=== PATIENT | male | born 1945 | race Caucasian/White ===

== ENCOUNTER 2017-01-16 08:29 | Inpatient (IN) | payer OTHER ==
[~2017-01-16] VITALS: Ht 170.2 cm; Wt 108.7 kg
[2017-01-16] VITALS (43 sets, daily range): BP systolic 88–256; BP diastolic 49–222; PULSE 67–93; RESP 16–27; Ht 170.2 cm; Wt 108.7 kg
[~2017-01-16 08:29] MED LIST: ASPI81TA3 PO; ATOR20TA38 PO; CLOP75TA4 PO; DILT300C33 PO; FENO48TA4 PO; LANT3I SC; METO-448 PO; OMEG-135 PO; SITA50TA2 PO
[2017-01-16] MEDS ORDERED: LISI2.5T59 PO (08:37)
[2017-01-16] MEDS ORDERED: SPIR25TA PO (08:38)
[2017-01-16] MEDS ORDERED: SOD CHLORIDE 0.9% 1,000 ML IV STA (08:38)
[2017-01-16] MEDS ORDERED: KRIL500C PO (08:39)
[2017-01-16] MEDS ORDERED: CARV3.1260 PO (08:39)
[2017-01-16] MEDS ORDERED: GLIP-95 PO (08:39)
[2017-01-16] MEDS ORDERED: ALLO100T PO (08:40)
[2017-01-16] MEDS ORDERED: METF500T4 PO (08:41)
[2017-01-16] MEDS ORDERED: ATOR80TA75 PO (08:41)
[2017-01-16] MEDS ORDERED: CALC500T91 PO (08:42)
[2017-01-16] MEDS ORDERED: FURO20TA3 PO (08:42)
[2017-01-16] MEDS ORDERED: TERA2CAP3 PO (08:43)
[2017-01-16 08:49] LABS: ADD SCAN DIFF NO
[2017-01-16] MEDS ORDERED: LABETALOL HCL 20MG INJ ONE (08:53)
[2017-01-16 09:07] LABS: ALBUMIN 3.7 g/dl (3.3-4.9); POTASSIUM 4.3 mmol/L (3.5-5.1)
[2017-01-16 09:09] LABS: BILIRUBIN,INDIRECT 0.3 mg/dl (0-1.1); BILIRUBIN,TOTAL 0.3 mg/dl (0.2-1.3); CREATININE 1.67 mg/dl (0.61-1.24)
[2017-01-16 09:10] LABS: ALBUMIN/GLOBULIN RATIO 1.19; CALCIUM 9.1 mg/dl (8.4-10.2); TOTAL PROTEIN 6.8 g/dl (6.1-8.1)
[2017-01-16 09:11] LABS: BASOPHIL # 0.1 10^3/ul (0.0-0.1); BASOPHILS % 0.6 % (0.0-2.0); EOSINOPHILS # 0.2 10^3/ul (0.0-0.5); EOSINOPHILS % 2.7 % (0.0-7.0); HEMATOCRIT 40.5 % (42.0-52.0); HEMOGLOBIN 13.2 g/dl (14.0-18.0); LYMPHOCYTES # 1.4 10^3/ul (0.8-2.9); LYMPHOCYTES % 15.5 % (15.0-51.0); MEAN CORPUSCULAR HEMOGLOBIN 28.9 pg (29.0-33.0); MEAN CORPUSCULAR HGB CONC 32.6 g/dl (32.0-37.0); MEAN CORPUSCULAR VOLUME 88.6 fl (82.0-101.0); MEAN PLATELET VOLUME 12.5 fl (7.4-10.4); MONOCYTE # 0.7 10^3/ul (0.3-0.9); MONOCYTES % 8.5 % (0.0-11.0); NEUTROPHIL # 6.3 10^3/ul (1.6-7.5); NEUTROPHILS % 72.4 % (39.0-77.0); PLATELET COUNT 201 10^3/UL (140-415); RED BLOOD COUNT 4.57 10^6/ul (4.70-6.10); RED CELL DISTRIBUTION WIDTH 16.8 % (11.5-14.5); WHITE BLOOD COUNT 8.7 10^3/ul (4.8-10.8)
[2017-01-16 09:19] LABS: INR 1.16; PROTIME 14.9 Sec (12.2-14.2); PT RATIO 1.2
[2017-01-16] MEDS ORDERED: PROPOFOL 100 ML ONE ×2 (09:19→13:33)
[2017-01-16 09:20] LABS: PARTIAL THROMBOPLASTIN TIME 27.9 Sec (25.0-35.0)
[2017-01-16 09:23] LABS: TROPONIN-I 0.094 ng/ml (0.00-0.12)
[2017-01-16 09:25] LABS: CK-MB 1.03 ng/ml (0.0-2.4)
[2017-01-16] MEDS ORDERED: AMIODARONE 150MG/D5W BOLUS IV* STA (09:30)
[2017-01-16 09:43] LABS: Allen Test ACCEPTAB; Arterial Base Excess -4.7 mmol/L (-3.0-3); Arterial COHb 0.2 % (0.0-3.0); Arterial HCO3 23.1 mmol/L (22.0-26.0); Arterial MetHb 0.2 % (0.0-1.5); Arterial Total Hemglobin 13.1 g/dl (12.0-18.0); MODE VENT - AC
--- NOTE | 2017-01-16 09:47 | RADRPT ---
PROCEDURE: Chest x-ray CLINICAL INDICATION: Chest pain TECHNIQUE: Chest single view COMPARISON: None FINDINGS: Endotracheal tube and nasogastric tube are in good position. There is moderate cardiomegaly and ath erosclerotic aortic calcification. Increased bilateral interstitial markings are seen likely reflec ting interstitial edema. There is mild perihilar and lower lobe atelectasis related low lung volume s. No confluent pneumonia seen. Costophrenic angles sharp. Bony thorax is unremarkable. IMPRESSION: 1. Endotracheal tube terminates 3 cm above the chrissy.. 2. Nasogastric tube extends into the stomach. 3. Cardiomegaly with mild interstitial CHF. 4. Bilateral lower lobe atelectasis related to the low lung volumes. 5. Atherosclerotic aortic calcification RPTAT: HH .Evgeny Dejesus MD, Date Time Electronically viewed and signed by .Evgeny Dejesus MD, on 01/16/2017 09:47 .W/
[2017-01-16] MEDS ORDERED: EPINEPHrine 0.1 MG/ML SYG ONE ×3 (10:02→20:03)
[2017-01-16] MEDS ORDERED: EPINEPHrine 4 MG in DEXTROSE 5% 246 ML IV STA (10:06)
--- NOTE | 2017-01-16 11:01 | RADRPT ---
Echocardiogram Report Patient Name: GAYLA POOL Gender: Male Date: 1945 Study Date: 16-Jan-2017 Pharmacy Technician Infusion: Lisa Madison RDCS Location: Ref. Physician: ABIODUN HOUSTON Quality: Technically Difficult Study Procedures: Transthoracic echocardiogram with complete 2D, M-Mode, and doppler examination. Indications: Evaluate Left Ventricular function. 2D/M Mode Doppler Measurement Value Normal Ranges Measurement Value Normal Ranges LVIDd 2D 6.9 3.5 - 5.6 cm AV Peak Raudel 1.2 m/sec LVIDs 2D 6.2 2.1 - 4.1 cm AV Peak PG 6.0 mmHg LVPWd 2D 1.2 0.6 - 1.1 cm LVOT Peak Raudel 0.6 m/sec IVSd 2D 1.1 0.6 - 1.1 cm LVOT Peak PG 1.3 mmHg AoR Diam 2D 3.4 2.0 - 3.7 cm EDV 2D 243.9 cm3 ESV 2D 240.9 cm3 LA Dimen 2D 3.1 2.3 - 4.0 cm Findings Left Ventricle: Mild concentric left ventricular hypertrophy. Severe enlargement of left ventricle cavity. Severe global left ventricular systolic dysfunction. Ejection fraction is visually estimated at 10 %. Right Ventricle: Normal right ventricular size. Normal right ventricular systolic function. Left Atrium: The left atrium is normal in size. Right Atrium: The right atrium is normal in size. Mitral Valve: Mitral valve leaflets appear mildly thickened. Mild mitral annular calcification. Mild mitral valve regurgitation. Aortic Valve: Aortic sclerosis without stenosis. Aortic cusps appear moderately calcified. Tricuspid Valve: Tricuspid valve not well visualized. Pulmonic Valve: Normal pulmonic valve appearance. Pericardium: Normal pericardium with no significant pericardial effusion. Aorta: Normal aortic root. IVC: Inferior vena cava without respiratory collapse, however, patient on ventilator. Conclusions 1.Mild concentric left ventricular hypertrophy. Severe enlargement of left ventricle cavity. Severe global left ventricular systolic dysfunction. Ejection fraction is visually estimated at 10 %. 2.Mitral valve leaflets appear mildly thickened. Mild mitral annular calcification. Mild mitral valve regurgitation. 3.Normal pulmonic valve appearance. 4.Normal pericardium with no significant pericardial effusion. Electronically Signed By: Iain Jon 16-Jan-2017 11:00:11 0800 Patient Name: GAYLA POOL Study Date: 16-Jan-2017 [id number]
--- NOTE | 2017-01-16 11:49 | SP ---
DATE OF PROCEDURE: 01/16/2017 REFERRING PHYSICIAN: Dr. Garcia. REASON FOR EVALUATION: Symptomatic bradycardia, asystole, cardiac arrest. PROCEDURES PERFORMED: 1. Code blue resuscitation. 2. Temporary pacemaker placement. 3. Fluoroscopy with interpretation. DISCUSSION: The patient was brought into the lab specialist urgently from emergency room. Consent was ob tained from the family. The patient was actively bradycardic, undergoing CPR and compressions. Dur ing the code, the patient had left femoral vein cannulated using modified Seldinger technique. A J- wire passed easily using 6-Mongolian sheath at the base. A floating pacing wire was put into RV with a ppropriate capture at less than 1 volt. The patient's regimen was 5 millivolts pacing with output o f 5 at a rate of 70. He appears to have tolerated the procedure well. His blood pressure returned to spontaneous circulation after the patient was activated. For now, we will transfer the patient t o intensive care unit and follow expectantly. Dictated By: BUD COREAS/GIORGIO Conf#: [id number] DID#: [id number]
[2017-01-16] MEDS ORDERED: ACETAMINOPHEN 325 MG TAB PO PRN ×2 (12:00→13:30)
--- NOTE | 2017-01-16 12:06 | CONS ---
DATE OF ADMISSION: 01/16/2017 DATE OF CONSULTATION: TYPE OF CONSULTATION: Cardiology. REFERRING PHYSICIAN: Dr. Houston REASON FOR EVALUATION: Bradycardia status post asystolic arrest. HISTORY OF PRESENT ILLNESS: Mr. John is a 71-year-old gentleman who was brought to the [facility] by his family because of bradycardia. On presentation, he became cyanotic and b radycardic and was intubated in the field. The patient had intermittent episodes of very low heart rate. He was managed by Dr. Houston in the emergency department. According to the family, the ilir ent had an ablation several days ago by Dr. Au. I contacted Dr. Au on the phone, apparently the patient had an ablation of PVCs in both right and left side of the heart. The patient had underlyin g bradycardia and underlying cardiomyopathy with EF prior at about 35%. The patient had a 2D echo d one in the emergency department which showed the ejection fraction very low, at 10% to 15% with diff use wall motion abnormalities but no pericardial effusion. I thought that the primary cause was bra dycardia. Patient was urgently transferred to the laborer pullet farm for temporary pacemaker placement. The patient had another asystolic arrest. He was resuscitated in the lab[facility] farm and temporary pacemaker w as placed after consent for the family. Now the patient will go to the intensive care unit. PAST MEDICAL HISTORY: 1. Hypertension. 2. Dyslipidemia. 3. History of coronary artery bypass graft. 4. History of coronary artery disease. 5. History of hypertension. 6. Recent ablation of PVCs in the right and left side of the ventricle by Dr. Au at [facility]. ALLERGIES: NO KNOWN DRUG ALLERGIES. SOCIAL HISTORY: ____ smoke, does not drink, does not use drugs. MEDICATIONS: Per review of the records, currently the patient is not on any cardiac medications. Wi ll supplement with Lasix. REVIEW OF SYSTEMS: CONSTITUTIONAL: Prior to presentation, the patient is bradycardic and had a syncopal episode in the field. HEENT: No changes in vision or hearing. CARDIAC: Recent ablation as noted. RESPIRATORY: Shortness of breath, chronic. GASTROINTESTINAL: No nausea, vomiting, diarrhea, constipation. GENITOURINARY: No dysuria, hematuria or difficult urination. NEUROLOGIC: No focal neurologic deficits, but now the patient is intubated. PHYSICAL EXAMINATION: VITAL SIGNS: After pacemaker placement he is paced at 70, blood pressure is 165/86. GENERAL: He is an obese gentleman in no acute distress, alert x0, now intubated. HEENT: Head is normocephalic. Eyes anicteric. NECK: Supple. JVD is 8 to 9 cm. There is no lymphadenopathy. HEART: Regular with PMI displaced leftward. He has wheezes in the lungs. ABDOMEN: Distended, bowel sounds present. There is no hepatosplenomegaly. GENITOURINARY: Exam is intact. EXTREMITIES: Show no evidence of clubbing, cyanosis, edema. LABORATORY DATA: His INR was 1.1. Creatinine was 0.7. Potassium 4.3. ASSESSMENT AND PLAN: 1. Symptomatic bradycardia. Patient has symptomatic bradycardia. He likely has compromised AV yue peyman SA note. The patient was advised to have an emergent temporary pacemaker, which was already done . He is now going to go to the ICU for further status after the fluid status, after ____ and managem ent. 2. Cardiomyopathy. The patient with significant cardiomyopathy, last EF by Dr. Au was 30%, now 1 0%, decreased. Not clear whether bradycardia related or alternative etiology. We will continue to follow the patient. He is going to have a rule out protocol and we will follow expectantly. 3. Hypertension. Blood pressure now better controlled. He received several doses of epinephrine d uring the CPR code blue resuscitation. We will continue to follow. 4. Coronary artery disease. The patient has history of coronary artery bypass graft per Dr. uA. He had a stress test in April of 2016, which showed no reversible ischemia. I would like to thank Dr. Houston for referring this patient for my evaluation. Dictated By: BUD ALVAREZ MD ML/NTS Conf#: [id number] DID#: [id number] CC: ABIODUN HOUSTON MD;*EndCC*
[2017-01-16] MEDS ORDERED: CLOP75TA27 PO (12:38)
--- NOTE | 2017-01-16 12:49 | RADRPT ---
PROCEDURE: XR Chest 1 View. CLINICAL INDICATION: The cardiac, status post cardiac arrest, chest pain. TECHNIQUE: AP view of the chest were obtained. COMPARISON: January 16, 2017 at 09:38 a.m. FINDINGS: Heart is large. Endotracheal and nasogastric tubes are stable and appear in grossly appropriate loc ation. Median sternotomy wires overlie the heart. Central pulmonary vascular congestion and inters titial prominence in both lungs appears stable. Perihilar infiltrates in both lungs are stable. The osseous structures are osteopenic, but appear grossly intact. IMPRESSION: Cardiomegaly. Stable support lines and tubes. Stable central pulmonary vascular congestion and interstitial prominence in both lungs. Stable patchy perihilar infiltrates in both lungs. RPTAT: AA .Tan Carolina MD, Date Time Electronically viewed and signed by .Tan Carolina MD, on 01/16/2017 12:49 .P/
[2017-01-16] MEDS ORDERED: CEFAZOLIN 1 GM/50 ML (PMX) 50 ML IVPB SCH (13:00)
--- NOTE | 2017-01-16 13:01 | CONS ---
Date/Time of Note Date/Time of Note DATE: 01/16/17 TIME: 12:53 Assessment/Plan Assessment/Plan Additional Assessment/Plan Ventilator settings; AC of 18, tidal volume 500, PEEP of 5, 100% FiO2. Chest x-ray was reviewed from today which is showing significant cardiomegaly with pulmonary edema. Endotracheal tube is at an adequate level. Sternal wires are identified. Assessment and recommendations; 1. Patient admitted with congestive heart failure with severe symptomatic bradycardia leading to cardiac arrest. Status post CPR at least 4 or 5 times. 2. History of coronary artery bypass surgery several years ago. 3. History of CHF. 4. Status post recent ablation for arrhythmia. 5. Status post temporary transvenous pacemaker. 6. History of renal insufficiency. 7. History of hypertension. Continue current treatment. Ventilator settings have been adjusted. FiO2 has been dropped down to 50%. Add Lovenox for DVT prophylaxis. Pepcid for GI prophylaxis. Currently there is no evidence of any infective process. Also will depend upon adequate mental status recovery. Patient will be given a sedation vacation in about 18 hours. Consultation Date/Type/Reason Admit Date/Time Date of Consultation: Jan 16, 2017 Type of Consultation: Pulmonary/critical care Reason for Consultation Patient admitted with cardiac arrest. Then developed respiratory failure. Pulmonary consultation obtained for ventilator management and respiratory failure. History of presenting illness; patient is a 71-year-old white male who was brought into the hospital after patient started complaining of shortness of breath at home . Also sustained a fall without any head injury. Upon evaluation the patient had severe bradycardia, the patient was intubated was taken to [facility] for pacemaker implantation and during that process the patient had cardiac arrest at least for 5 times with successful resuscitation. Transvenous pacemaker was put in. Patient currently is orally intubated, sedated, patient has a paced rhythm. History was obtained from medical records as well as patient's caregiver who is presently in the room. 40 to the caregiver the patient had cardiac ablation done a few days ago for symptomatic PVCs. And according to her after that the patient patient's shortness of breath did not improve. Patient also having some cough lately without any fever or chest pain. Past medical history; history of coronary artery bypass surgery several years ago. 2. History of hypertension. 3. History of renal insufficiency. Not requiring dialysis. 4. No history of any ME. 5. Patient has a history of congestive heart failure. Medications; were reviewed. Allergies; are none. Social history; patient has remote history of skin smoking. No history of alcohol or drug abuse. Family history; patient is single. He has 1 son. 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 Review of systems; cannot be obtained currently. General exam; elderly male, or intubated, sedated. Social History Smoking Status: Unknown if ever smoked Exam/Review of Systems Vital Signs Vitals Vital Signs Date Time Temp Pulse Resp B/P Pulse Ox O2 Delivery O2 Flow Rate FiO2 01/16/17 12:00 72 01/16/17 11:50 16 100 100 01/16/17 10:48 135/75 Mechanical Ventilator 01/16/17 09:04 15.0 Exam H EENT examination; supple neck, positive JVD. Or intubated. Patient has multiple carious teeth. Pupils are midsize and reactive to light. No neck masses. No thyromegaly. No neck bruits. Chest examination; diminished but clear breath sounds bilaterally. S1-S2 audible, regular rhythm. Abdomen examination; protuberant, no scars present. Bowel sounds audible. No organomegaly. Umbilicus is inverted. Extremity examination; patient has 1+ pitting edema lower extremities bilaterally. Pulses 1+ bilaterally. No clubbing. DIESEL PLANT OPERATOR examination; patient is sedated. Results Result Diagram: 01/16/17 0840 01/16/17 0840 Results 24 hrs Laboratory Tests Test 01/16/17 08:40 01/16/17 08:43 01/16/17 09:34 Activated Partial Thromboplast Time 27.9 Alanine Aminotransferase (ALT/SGPT) 27 Albumin 3.7 Albumin/Globulin Ratio 1.19 Alkaline Phosphatase 109 Anion Gap 17 H Aspartate Amino Transf (AST/SGOT) 23 B-Type Natriuretic Peptide 4220 H Basophils # 0.1 Basophils % 0.6 Blood Urea Nitrogen 39 H Calcium Level 9.1 Carbon Dioxide Level 24 Chloride Level 107 Creatine Kinase 87 Creatine Kinase Index 1.2 Creatinine 1.67 H Creatinine Kinase MB (Mass) 1.03 Direct Bilirubin 0.00 Eosinophils # 0.2 Eosinophils % 2.7 Globulin 3.10 Glucose Level 204 Hematocrit 40.5 L Hemoglobin 13.2 L INR International Normalized Ratio 1.16 Indirect Bilirubin 0.3 Lipase 101 Lymphocytes # 1.4 Lymphocytes % 15.5 Mean Corpuscular Hemoglobin 28.9 L Mean Corpuscular Hemoglobin Concent 32.6 Mean Corpuscular Volume 88.6 Mean Platelet Volume 12.5 H Monocytes # 0.7 Monocytes % 8.5 Neutrophils # 6.3 Neutrophils % 72.4 Nucleated Red Blood Cells # 0.0 Nucleated Red Blood Cells % 0.0 Platelet Count 201 Potassium Level 4.3 Prothrombin Time 14.9 H Prothrombin Time Ratio 1.2 Red Blood Count 4.57 L Red Cell Distribution Width 16.8 H Sodium Level 144 Total Bilirubin 0.3 Total Protein 6.8 Troponin I 0.094 White Blood Count 8.7 Bedside Glucose 192 Arterial Blood HCO3 23.1 Arterial Blood Base Excess -4.7 L Arterial Blood Oxygen Saturation 99.4 Srikanth Test ACCEPTAB Arterial Blood Gas Puncture Site Left Radial Arterial Blood Carboxyhemoglobin 0.2 Arterial Blood Date Drawn 01/16/2017 9:15:00 AM Arterial Blood Methemoglobin 0.2 Arterial Blood pCO2 (Temp correct) 54.5 H Arterial Blood pH (Temp corrected) 7.246 *L Arterial Blood pO2 (Temp corrected) 334.5 H Blood Gas A-a O2 Differential 324.0 H Blood Gas Actual Respiration Rate 14 Blood Gas Critical Value Read Back DR YAZAN Leach Blood Gas Low PEEP Setting 5.0 Blood Gas Modality VENT - AC Blood Gas Notified Time 01/16/2017 9:42:00 AM Blood Gas Notified Whom JLD Blood Gas Respiration Rate 14.0 Blood Gas Specimen Source Blood arterial Blood Gas Temperature 37.0 Blood Gas Tidal Volume 500.0 FiO2 100.0 Oxyhemoglobin Percent 99.0 Total Hemoglobin 13.1 Medications Medications Current Medications Acetaminophen 650 mg 650 mg Q4H PRN PO NON-CARDIAC PAIN LEVEL (1-3); Start at 12:00 Cefazolin Sodium (Ancef 1 Gm/50 ml (Pmx)) 50 ml @ 100 mls/hr Q8 IVPB ; Start at 13:00 Miscellaneous Information (* Miscellaneous Pharmacy Order) DC all Lovenox, Hepari... ONCE XX ; Start 01/16/17 at 12:00 RAJESH VALDES Jan 16, 2017 13:01
[2017-01-16] MEDS ORDERED: morphine 2 MG INJ IV PRN (13:30)
[2017-01-16] MEDS ORDERED: LORAZEPAM 2 MG INJ IV PRN (13:30)
[2017-01-16] MEDS ORDERED: DOCUSATE SODIUM 100 MG CAP PO PRN (13:30)
[2017-01-16] MEDS ORDERED: ONDANSETRON 4 MG INJ IV PRN (13:30)
[2017-01-16] MEDS ORDERED: ACETAMINOPHEN 650MG/20.3ML CUP PO PRN (13:30)
[2017-01-16] MEDS: CEFTRIAXONE 1 GM/50 ML (PMX) 50 ML IVPB SCH (14:00)
[2017-01-16] MEDS ORDERED: GLUCOSE GEL 15 GRAM TUBE PO PRN ×2 (14:00)
[2017-01-16] MEDS ORDERED: GLUCOSE GEL 15 GRAM TUBE BUCCAL PRN (14:00)
[2017-01-16] MEDS ORDERED: GLUCAGON 1 MG INJ IM PRN (14:00)
[2017-01-16] MEDS ORDERED: DEXTROSE 50% 50 ML SYRINGE IV PRN ×2 (14:00)
[2017-01-16] MEDS: PROPOFOL 100 ML IV SCH ×2 (14:06→21:00)
--- NOTE | 2017-01-16 15:05 | HP ---
DATE OF ADMISSION: 01/16/2017 CONSULTANTS: 1. ____ 2. Dr. Iain Jon. CHIEF COMPLAINT: Shortness of breath and complete heart block. HISTORY OF PRESENT ILLNESS: This is a 71-year-old gentleman with past medical history of coronary a rtery disease status post CABG, hypertension, dyslipidemia, congestive heart failure, diabetes jaxi tus, diabetic nephropathy, BPH who recently had a cardiac ablation at [facility] about a we ek ago and has been having difficulty with breathing for the past 3 to 4 days and was brought into [facility] emergency room at [facility] via EMS secondary to the patient was found to be c yanotic and bradycardic. The patient was intubated in the course of the emergency room. The patien t had intermittent episodes of very low heart rate, question of seizure activity. He was managed by Dr. Garcia in the emergency room. As stated above, as per family, the patient had ablation about a week ago by Dr. Au at [facility] where he had ablation of PVCs in both right and left side of the heart. He had had underlying bradycardia and underlying cardiomyopathy with ejection fr action of 35% in the prior hospitalization. In the course of the emergency room, ____he had an tim gent 2D echocardiogram in the emergency room which showed ejection fraction of 10% to 15% with diffu se wall motion abnormalities, but no pericardial effusion. Patient was found to have asystole cardi ac arrest in the emergency room and patient was taken to dental laboratory supervisor emergency for temporary pacemaker placement. During the time of arrival to emergency room, per patient, the patient had a temporary pacemaker placement. He had 3 cardiac arrests. The patient had another asystole arrest in the [facility] catheterization lab prior to temporary pacemaker placement. Patient was educated in the cardiac catheterization lab and temporary pacemaker was placed after the consent by the family. The patien t after temporary pacemaker was transferred to ICU. He is intubated. Family at the bedside. The p atient at this time as stated above, is intubated, on pressors and sedated via propofol. VITAL SIGNS: Heart rate 71, respiration rate 20, blood pressure 107/70, oxygen saturation 99% on ve nt. PAST MEDICAL AND SURGICAL HISTORY: 1. Hypertension. 2. Dyslipidemia. 3. History of coronary artery bypass graft. 4. History of coronary artery disease. 5. Essential hypertension. 6. Diabetes mellitus. 7. Chronic renal insufficiency. 8. Congestive heart failure, ejection fraction of 35%. 9. Recent ablation of PVC in the right and left side of the right ventricle by Dr. Au at [facility]. MEDICATIONS: 1. Allopurinol 100 mg. 2. Aspirin 81 mg. 3. Lipitor 80 mg. 4. Calcium carbonate 500 mg. 5. Coreg 3.125 mg 6. Plavix 75 mg 7. Fenofibrate 48 mg twice daily. 8. Lasix 20 mg 9. Glipizide 10 mg. 10. Lantus 25 units. 11. Krill oil 500 mg 12. Lisinopril 2.5 mg. 13. Metformin 500 mg. 14. Aldactone 25 mg 15. ____2 mg. ALLERGIES: NO KNOWN DRUG ALLERGIES. FAMILY HISTORY: Noncontributory secondary to advanced age. SOCIAL HISTORY: Lives at home with his significant other, never smoked. No alcohol, no illicit yesenia gs. REVIEW OF SYSTEMS: As above per HPI, otherwise it is not obtainable secondary to patient's mentati on. PHYSICAL EXAMINATION: VITAL SIGNS: Temperature 97.8, pulse 72, respiration rate 17, blood pressure 107/70, oxygen satura tion 100% on mechanical ventilation. GENERAL APPEARANCE: Patient is intubated, sedated. Does not respond to pain or verbal stimuli at t his time. Body habitus morbidly obese. HEENT: Conjunctivae and lids are normal. Pupils are sluggish to light. Extraocular motion is not assessable at this time. NECK: Supple. Trachea midline. No lymphadenopathy. RESPIRATORY: The patient is intubated. Decreased breath sounds bilateral lower lung adhikari with c rackles. CARDIOVASCULAR: Normal S1, S2. Regular rhythm and rate. Positive II/ murmur at the apex. There is positive bilateral lower extremity edema. GASTROINTESTINAL: Abdomen is soft, nontender, not distended. Bowel sounds distant secondary to bod y habitus. GENITOURINARY: A Lu in place. EXTREMITIES: There is stasis dermatitis bilateral lower extremities, more right than left with posi tive 1 edema bilateral lower extremities. NEUROLOGIC: The patient is sedated. LABORATORY WORK AND IMAGING: WBC 8.7, hemoglobin 13.3, hematocrit 40.5, platelets 201. Sodium 144, potassium 4.3, chloride 107, bicarbonate 24, BUN 39, creatinine 1.67, glucose 204, calcium 9.1. Tr oponin 0.094. BNP 4220. Lipase 101. Chest x-ray: Endotracheal tube terminates at 3 cm above the chrissy. Nasogastric tube into the stoma ch. Cardiomegaly with mild interstitial CHF, bilateral lower lobe atelectasis related to lung volum es, atherosclerotic aortic calcification. ASSESSMENT AND PLAN: 1. Cardiac arrest. 2. Acute respiratory failure secondary to #1. 3. Symptomatic bradycardia status post asystolic arrest. The patient is status post emergent tempo rary pacemaker placement, was managed in ICU. 4. Pulmonary flash edema, on Lasix. Cardiology has been consulted. 5. Systolic congestive heart failure with ejection fraction of 10% to 15%. Continue Aldactone and Lasix. 6. History of essential hypertension. The patient is hypotensive. Hold blood pressure medications and patient's pressors. 7. Diabetes mellitus. Place the patient on insulin sliding scale. Continue Lantus. 8. Chronic renal insufficiency. Continue to monitor. Cautious with nephrotoxic medications. 9. For deep venous thrombosis prophylaxis, Lovenox. 10. We will continue to monitor patient closely. Further recommendations, management and treatment as per the course. Total time spent for this patient and admission workup 60 minutes. Dictated By: JOHN CANDELARIO/NTS Conf#: [id number] DID#: [id number]
[2017-01-16] MEDS ORDERED: FUROSEMIDE 20 MG INJ IV ONE (15:30)
[2017-01-16 15:31] LABS: CK-MB 3.76 ng/ml (0.0-2.4); TROPONIN-I 0.624 ng/ml (0.00-0.12)
[2017-01-16] MEDS: INSULIN ASPART [NOVOLOG] 3 ML PEN SC SCH ×2 (17:00→23:00)
[2017-01-16] MEDS ORDERED: ATROPINE 1 MG/10 ML SYRINGE ONE (17:34)
[2017-01-16] MEDS ORDERED: LIDOCAINE 1% (MDV) 20 ML INJ ONE (18:05)
--- NOTE | 2017-01-16 18:08 | QN ---
Documentation Comment I was called out of the emergency department to room 104 for a CODE BLUE event. The patient was receiving high-quality CPR and being bagged by respiratory therapy. I immediately took over as the CODE BLUE leader and ran the code. Please see the code sheet for full details. The patient received epinephrine and bicarb. The final results of the CODE BLUE was return of spontaneous circulation. I did order an epinephrine drip. Dr. Jon is coming to the bedside to see the patient and taken back to the cardiac Physician President. HPI: Please note the history and physical exam is limited as the patient is receiving CPR at this time. The patient is in full cardiac arrest. Physical exam: The patient is being bagged by respiratory therapy. There is no movement. GCS is 3. JOSE MIGUEL KHAN MD Jan 16, 2017 18:08
[2017-01-16 18:19] LABS: ADD SCAN DIFF NO
[2017-01-16 18:21] LABS: BASOPHIL # 0.1 10^3/ul (0.0-0.1); BASOPHILS % 0.3 % (0.0-2.0); EOSINOPHILS % 0.2 % (0.0-7.0); HEMOGLOBIN 11.5 g/dl (14.0-18.0); LYMPHOCYTES # 1.9 10^3/ul (0.8-2.9); MEAN CORPUSCULAR HEMOGLOBIN 28.9 pg (29.0-33.0); MEAN CORPUSCULAR HGB CONC 31.1 g/dl (32.0-37.0); MEAN PLATELET VOLUME 12.1 fl (7.4-10.4); MONOCYTE # 1.5 10^3/ul (0.3-0.9); MONOCYTES % 9.3 % (0.0-11.0); NEUTROPHIL # 12.2 10^3/ul (1.6-7.5); NEUTROPHILS % 77.6 % (39.0-77.0); PLATELET COUNT 175 10^3/UL (140-415); RED BLOOD COUNT 3.98 10^6/ul (4.70-6.10); RED CELL DISTRIBUTION WIDTH 16.6 % (11.5-14.5); WHITE BLOOD COUNT 15.8 10^3/ul (4.8-10.8)
[2017-01-16 18:33] LABS: CREATININE 1.35 mg/dl (0.61-1.24); MAGNESIUM 1.8 mg/dl (1.7-2.5); PHOSPHORUS 3.9 mg/dl (2.5-4.9)
[2017-01-16] MEDS ORDERED: PROPOFOL 20 ML ONE (18:37)
[2017-01-16 18:38] LABS: POTASSIUM 2.9 mmol/L (3.5-5.1)
[2017-01-16] MEDS ORDERED: POTASSIUM CHLORIDE 50 ML ONE (19:13)
[2017-01-16] MEDS ORDERED: SODIUM CL BACTERIOSTATIC 30 ML INJ ONE (19:57)
[2017-01-16] MEDS ORDERED: IOHEXOL 300MG/ML 30 ML BTL ONE (19:57)
[2017-01-16] MEDS ORDERED: FAMOTIDINE 20 MG INJ IV SCH (21:00)
[2017-01-16] MEDS ORDERED: HEPARIN 5,000 UNIT/0.5 ML SYG SC SCH (21:00)
[2017-01-16] MEDS: EPINEPHrine 4 MG in SOD CHLORIDE 0.9% 246 ML IV SCH (21:00)
--- NOTE | 2017-01-16 21:25 | RADRPT ---
PROCEDURE: Status post removal of temporary pacemaker with placement of a new pacemaker. CLINICAL INDICATION: Stent placement. TECHNIQUE: AP views in surgery of the right upper quadrant of the abdomen. Radiology: Exposure dose or time reported for procedure using fluoroscopy. 78.28 mGy: The exposure time 229.6 seconds and 5 fluoroscopic images. COMPARISON: No. FINDINGS: Injection of contrast into the left arm was performed with visualization of the left axillary vein. An endotracheal tube is noted in place and is well positioned near T4. A mediastinotomy is then pe rformed. The partially visualized NG tube follows the expected pathway to the stomach. The second image demonstrates an NG tube distal to the GE junction which is well-positioned. There is a pacema ker electrode projecting at the base of the right ventricle. The third image demonstrates a single chamber AICD device with electrode leads traveling to the level of the right ventricle on the final image. IMPRESSION: 1. Status post placement of a single channel AICD device with electrode leads projecting at the lev el of the right ventricle. 2. Satisfactory positioning of the NG tube an endotracheal tube. 3. Status post median sternotomy. 4. Cardiomegaly with left ventricular enlargement. RPTAT:AAJJ Physician Maik Date Time Electronically viewed and signed by Physician Maik on 01/16/2017 21:25 YAHAIRA/
--- NOTE | 2017-01-16 21:27 | RADRPT ---
PROCEDURE: XR Chest. CLINICAL INDICATION: Status post pacemaker. TECHNIQUE: Single frontal view of the chest was obtained COMPARISON: Chest x-ray 01/16/2017 12:29 p.m. FINDINGS: The soft tissues are normal. There are degenerative osteophytes in the thoracic spine. A mediastin otomy was performed. A single channel. Pacemakers implant over the upper left chest wall with elec trode leads projecting at the base of the right ventricle. The heart is enlarged. The cardiomedias tinal silhouette, and hilar structures are normal. There are vascular calcifications in the aortic a rch. There are bilateral perihilar and basilar infiltrates suspicious for pulmonary edema with incre ased pulmonary vasculature. Bilateral pleural effusions are suspected. An endotracheal tube and NG tube are in good position. There are osteophytes in the thoracic spine. IMPRESSION: 1. Status post placement of a single chamber cardiac pacemaker electrode leads projecting at the lev el of the right ventricle. 2. Cardiomegaly with left ventricular enlargement. 3. Congestive heart failure with interstitial pulmonary edema and bilateral pleural effusions. 4. The endotracheal tube is well-positioned at T3-4. 5. An NG tube is positioned distal to the GE junction. 6. Status post median sternotomy. RPTAT:AAJJ Physician Maik Date Time Electronically viewed and signed by Physician Maik on 01/16/2017 21:27 YAHAIRA/
[2017-01-16 21:35] LABS: TROPONIN-I 0.777 ng/ml (0.00-0.12)
[2017-01-16] MEDS: ATORVASTATIN 80 MG TAB PO SCH (22:16)
[2017-01-16 22:27] LABS: AADO2 Arterial 205.5 mmHg (7.0-24.0); Arterial Base Excess -3.1 mmol/L (-3.0-3); Arterial COHb 0.1 % (0.0-3.0); Arterial Fraction of Oxyhgb 96.8 % (93.0-99.0); Arterial HCO3 22.2 mmol/L (22.0-26.0); Arterial MetHb 0.2 % (0.0-1.5); Arterial Total Hemglobin 12.9 g/dl (12.0-18.0); Blood Gas Mean Airway Pressure 11; MODE VENT - AC
[2017-01-17] VITALS (97 sets, daily range): BP systolic 71–135; BP diastolic 43–84; PULSE 68–84; RESP 15–28
[2017-01-17] MEDS: PROPOFOL 100 ML IV SCH ×4 (01:27→22:00)
[2017-01-17] MEDS: INSULIN ASPART [NOVOLOG] 3 ML PEN SC SCH ×6 (01:41→20:52)
[2017-01-17] MEDS ORDERED: FUROSEMIDE 20 MG INJ IV ONE (03:30)
[2017-01-17 04:16] LABS: CK-MB 4.2 ng/ml (0.0-2.4); TROPONIN-I 0.653 ng/ml (0.00-0.12)
[2017-01-17 04:34] LABS: ADD SCAN DIFF NO
[2017-01-17 04:43] LABS: BASOPHILS % 0.4 % (0.0-2.0); EOSINOPHILS # 0.1 10^3/ul (0.0-0.5); EOSINOPHILS % 0.4 % (0.0-7.0); HEMATOCRIT 36.9 % (42.0-52.0); HEMOGLOBIN 11.6 g/dl (14.0-18.0); LYMPHOCYTES # 0.9 10^3/ul (0.8-2.9); MEAN CORPUSCULAR HEMOGLOBIN 28.2 pg (29.0-33.0); MEAN CORPUSCULAR HGB CONC 31.4 g/dl (32.0-37.0); MEAN CORPUSCULAR VOLUME 89.8 fl (82.0-101.0); MEAN PLATELET VOLUME 13.2 fl (7.4-10.4); MONOCYTES % 8.4 % (0.0-11.0); NEUTROPHIL # 9.4 10^3/ul (1.6-7.5); NEUTROPHILS % 82.4 % (39.0-77.0); PLATELET COUNT 190 10^3/UL (140-415); RED BLOOD COUNT 4.11 10^6/ul (4.70-6.10); RED CELL DISTRIBUTION WIDTH 16.8 % (11.5-14.5); WHITE BLOOD COUNT 11.4 10^3/ul (4.8-10.8)
[2017-01-17 04:48] LABS: POTASSIUM 4.4 mmol/L (3.5-5.1)
[2017-01-17 04:50] LABS: CREATININE 1.74 mg/dl (0.61-1.24)
[2017-01-17 04:51] LABS: CALCIUM 8.6 mg/dl (8.4-10.2)
[2017-01-17 04:52] LABS: CHOL/HDL RATIO 2.7 RATIO; MAGNESIUM 1.8 mg/dl (1.7-2.5)
--- NOTE | 2017-01-17 07:05 | SP ---
DATE OF PROCEDURE: PROCEDURE: Temporary pacemaker . DESCRIPTION OF PROCEDURE: The patient was brought in the equipment operator/laborer. The patient had a temporary pac emaker placed earlier for indication of symptomatic bradycardia, asystole. The patient was doing we ll for several hours in the intensive care unit, but then his lost capture. Consent was obtain ed from the and the patient was brought into the equipment operator/laborer. Fluoroscopy was performed and the pa cemaker appears to have dislodged, although there were no signs of dislodgment in the groin area whe re the pacemaker was attached. Under sterile technique I repositioned the pacemaker into the apex a nd we were able to have appropriate capture at 5 milliamps. The was positioned in the right ape x. I addressed the issue further with the patient's family. I think there is still a very high ris k of dislodgement for this patient. In the setting of continuous low ejection fraction and TR, I t hink at this point putting in a permanent pacemaker would be advisable in order to prevent further d islodgement, as the patient already had multiple resuscitation attempts after a dislodged pacemaker. I discussed the situation with the . I explained the risks and benefits of the procedure. I e xplained to her that it will require a surgical incision. There is a risk of bleeding and infection , that there is a risk of pneumothorax, hemothorax, as well as hemodynamic compromise, including ane sthesia; however, I think that would be the best option at this point in order to prevent dislodgeme nt of the pacemaker. His understood the risks, benefits and alternatives of the procedure and agreed to proceed. We are going to transfer the patient to the operating room, as we are after hours , and will attempt to put in a permanent pacemaker there. Dictated By: BUD COREAS/GIORGIO Conf#: [id number] DID#: [id number]
--- NOTE | 2017-01-17 07:09 | ERA ---
ER Documentation Chief Complaint Date/Time DATE: 01/17/17 TIME: 06:33 Chief Complaint NAUSEA VOMITING SINCE THIS AM WITH PHASES OF ALOC HPI This is a 71-year-old male with a known history of coronary artery disease with previous CABG, hypertension, congestive heart failure and diabetes mellitus. The patient was brought into the emergency department by EMS after his common- law stated she was concerned the patient had seizure-like activity. His indicated that at 7 AM this morning he awoke and stated he felt hungry. She made him breakfast and shortly after he ate, while sitting in bed, with no choking coughing or gagging episode, she indicated that the patient suddenly had a shaking episode of his upper extremities and his eyes appeared to roll into the back of his head. The patient did not lose urinary incontinence or bite his tongue. His indicates he has no past history of seizure disorder and has never had any similar symptoms in the past. One week ago the patient had an ablation of PVCs of both the right and left ventricle performed by the drill press operator numerical control Dr. Au at [facility]. The patient since the ablation has not complained of any shortness of breath at rest or exertion. The patient has not recently complained of headache or chest pain. He has not experienced any fever shaking or chills. His indicates he has been compliant with his medications. After the patient had a questionable seizure activity she immediately phoned 911. EMS arrived and stated that the patient had no complaints at this time other than nausea but according to his appeared to be more drowsy and confused. EMS indicated that the patient was answering all questions appropriately and had one episode of nonbloody nonbilious emesis in route to the hospital. ROS All systems reviewed and are negative except as per history of present illness. Medications Home Meds Reported Medications Clopidogrel Bisulfate (Clopidogrel) 75 Mg Tablet, 75 MG PO DAILY, #30 TAB 01/16/17 Terazosin Hcl* (Terazosin Hcl*) 2 Mg Capsule, 2 MG PO HS, CAP 01/16/17 Furosemide* (Furosemide*) 20 Mg Tablet, 20 MG PO DAILY, #60 TAB 01/16/17 Calcium Carbonate ([id number]-560) 500 Mg Tablet, 500 MG PO DAILY, TAB 01/16/17 Atorvastatin* (Atorvastatin*) 80 Mg Tablet, 80 MG PO QHS, #30 TAB 01/16/17 Metformin* (Glucophage*) 500 Mg Tab, 500 MG PO BID WITH MEALS, #90 TAB 01/16/17 Allopurinol* (Allopurinol*) 100 Mg Tablet, 100 MG PO DAILY, TAB 01/16/17 Carvedilol* (Carvedilol*) 3.125 Mg Tablet, 3.125 MG PO BID, #60 TAB 01/16/17 Glipizide* (Glipizide*) 10 Mg Tablet, 10 MG PO DAILY, TAB 01/16/17 Krill Oil (KRILL OIL) 500 Mg Capsule, 500 MG PO QAM, CAP 01/16/17 Spironolactone* (Aldactone*) 25 Mg Tablet, 12.5 MG PO QAM, #60 TAB 01/16/17 Lisinopril* (Lisinopril*) 2.5 Mg Tablet, 2.5 MG PO QAM, #30 TAB 01/16/17 Insulin Glargine* (Lantus*) 100 Unit/Ml Soln, 25 UNIT SC DAILY, EA 06/02/14 Fenofibrate Nanocrystallized* (Fenofibrate*) 48 Mg Tablet, 134 MG PO DAILY, TAB 06/02/14 Aspirin (Aspirin) 81 Mg Chew, 81 MG PO DAILY, TAB.CHEW 06/02/14 Clopidogrel Bisulfate* (Clopidogrel Bisulfate*) 75 Mg Tablet, 75 MG PO DAILY, TAB 06/02/14 Discontinued Reported Medications Atorvastatin Calcium* (Atorvastatin Calcium*) 20 Mg Tablet, 20 MG PO HS, TAB 06/02/14 Fish Oil* (Fish Oil*) 1,000 Mg Cap, 1200 MG PO BID, CAP 06/02/14 Diltiazem Hcl* (Cartia XT*) 300 Mg Cap.sr.24h, 300 MG PO DAILY, CAP 06/02/14 Sitagliptin* (Januvia*) 50 Mg Tablet, 50 MG PO DAILY, TAB 06/02/14 Metoprolol Tartrate* (Lopressor*) 25 Mg Tab, 25 MG PO DAILY, TAB 06/02/14 Allergies Allergies: Coded Allergies: No Known Allergy (Unverified , 06/03/14) PMhx/Soc History of Surgery: Yes (CABG) Anesthesia Reaction: No Hx Neurological Disorder: No Hx Respiratory Disorders: No Hx Cardiac Disorders: Yes (HTN, HYPERLIPIDEMIA, CAD,PVD) Hx Psychiatric Problems: No Hx Alcohol Use: No Hx Substance Use: No Hx Tobacco Use: No Smoking Status: Never smoker Physical Exam Vitals Vital Signs Date Time Temp Pulse Resp B/P Pulse Ox O2 Delivery O2 Flow Rate FiO2 01/16/17 10:48 78 135/75 100 Mechanical Ventilator 01/16/17 10:09 81 106/66 100 Mechanical Ventilator 01/16/17 09:49 16 100 01/16/17 09:04 118 14 Non Rebreather Mask 15.0 01/16/17 09:04 118 14 100 100 01/16/17 08:38 49 12 159/74 98 Physical Exam Constitutional:Well-developed. Well-nourished. HEENT:Normocephalic. Atraumatic.Pupils were equal round reactive to light. Moist mucous membranes.No tonsillar exudates. Neck: No nuchal rigidity. No lymphadenopathy. No posterior cervical spine tenderness or step-offs. Respiratory: Not using accessory muscles of respiration.Lungs were clear to auscultation bilaterally. No rhonchi. No rales. No wheezing. Cardiovascular: Bradycardia with regular rhythm.No murmurs. No rubs were appreciated.S1, S2 normal. Distal pulses are palpable 2+ bilaterally. GI: Abdomen was soft. Nontender. Non Distended. No pulsatile abdominal masses or bruits. No rebound. No guarding. Bowel sounds were present and normal. Muscle skeletal: Full range of motion of both the upper and lower extremities bilaterally.Normal muscle tone.No assymetrical calf tenderness or swelling. Skin: Pallor no petechia, no purpura. No lesions on the palms or the soles of the feet. No maculopapular rash. 1+ pitting edema the bilateral lower extremities NEURO: Patient was alert, awake, orientated x3.No facial droop. Gait was not observed as patient felt too weak to ambulate. Speech was not slurred and patient spoke in a soft tone but answered all questions appropriately with good articulation. No focal neurological deficits. Result Diagram: 01/17/1734901/17/17 035 Results 24 hrs Laboratory Tests Test 01/16/17 08:40 01/16/17 08:43 01/16/17 09:34 Activated Partial Thromboplast Time 27.9Sec Alanine Aminotransferase (ALT/SGPT) 27IU/L Albumin 3.7g/dl Albumin/Globulin Ratio 1.19 Alkaline Phosphatase 109IU/L Anion Gap 17 Aspartate Amino Transf (AST/SGOT) 23IU/L B-Type Natriuretic Peptide 4220PG/ML Basophils # 0.110^3/ul Basophils % 0.6% Blood Urea Nitrogen 39mg/dl Calcium Level 9.1mg/dl Carbon Dioxide Level 24mmol/L Chloride Level 107mmol/L Creatine Kinase 87IU/L Creatine Kinase Index 1.2 Creatinine 1.67mg/dl Creatinine Kinase MB (Mass) 1.03ng/ml Direct Bilirubin 0.00mg/dl Eosinophils # 0.210^3/ul Eosinophils % 2.7% Globulin 3.10g/dl Glucose Level 204mg/dl Hematocrit 40.5% Hemoglobin 13.2g/dl INR International Normalized Ratio 1.16 Indirect Bilirubin 0.3mg/dl Lipase 101U/L Lymphocytes # 1.410^3/ul Lymphocytes % 15.5% Mean Corpuscular Hemoglobin 28.9pg Mean Corpuscular Hemoglobin Concent 32.6g/dl Mean Corpuscular Volume 88.6fl Mean Platelet Volume 12.5fl Monocytes # 0.710^3/ul Monocytes % 8.5% Neutrophils # 6.310^3/ul Neutrophils % 72.4% Nucleated Red Blood Cells # 0.010^3/ul Nucleated Red Blood Cells % 0.0/100WBC Platelet Count 77721^3/UL Potassium Level 4.3mmol/L Prothrombin Time 14.9Sec Prothrombin Time Ratio 1.2 Red Blood Count 4.5710^6/ul Red Cell Distribution Width 16.8% Sodium Level 144mmol/L Total Bilirubin 0.3mg/dl Total Protein 6.8g/dl Troponin I 0.094ng/ml White Blood Count 8.710^3/ul Bedside Glucose 192mg/dL Arterial Blood HCO3 23.1mmol/L Arterial Blood Base Excess -4.7mmol/L Arterial Blood Oxygen Saturation 99.4mmHG Srikanth Test ACCEPTAB Arterial Blood Gas Puncture Site Left Radial Arterial Blood Carboxyhemoglobin 0.2% Arterial Blood Date Drawn 01/16/2017 9:15:00 AM Arterial Blood Methemoglobin 0.2% Arterial Blood pCO2 (Temp correct) 54.5mmhg Arterial Blood pH (Temp corrected) 7.246 Arterial Blood pO2 (Temp corrected) 334.5mmHG Blood Gas A-a O2 Differential 324.0mmHg Blood Gas Actual Respiration Rate 14 Blood Gas Critical Value Read Back DR YAZAN Leach Blood Gas Low PEEP Setting 5.0cmH2O Blood Gas Modality VENT - AC Blood Gas Notified Time 01/16/2017 9:42:00 AM Blood Gas Notified Whom JLD Blood Gas Respiration Rate 14.0 Blood Gas Specimen Source Blood arterial Blood Gas Temperature 37.0C Blood Gas Tidal Volume 500.0mL FiO2 100.0% Oxyhemoglobin Percent 99.0% Total Hemoglobin 13.1g/dl Current Medications Medications (Trade) Dose Ordered Sig/Percy Route PRN Reason Start Time Stop Time Status Last Admin Dose Admin Sodium Chloride (NS) 1,000 ml @ 1,000 mls/hr Q1H STAT IV 01/16/17 08:38 01/16/17 09:37 DC 01/16/17 08:38 Labetalol HCl 20 mg 20 mg STK-MED ONCE .ROUTE 01/16/17 08:53 01/16/17 08:54 DC Propofol (Diprivan) 100 ml @ ud STK-MED ONCE .ROUTE 01/16/17 09:19 01/16/17 09:20 DC Amiodarone HCl (Cordarone 150mg/ D5W Bolus) 100 ml ONCE STAT IV* 01/16/17 09:30 01/16/17 09:31 DC 01/16/17 09:30 Epinephrine 1 mg 1 mg STK-MED ONCE .ROUTE 01/16/17 10:02 01/16/17 10:03 DC Epinephrine/ Dextrose (EPINEPHrine/D5W) 250 ml @ 7.5 mls/hr ONCE STAT IV 01/16/17 10:06 01/17/17 19:25 01/16/17 10:44 Procedures/MDM This patient presented to the emergency department with questionable seizure activity. He was immediately placed on a environmental health technologist continuous pulse oximetry and IV access was established by nursing staff. As I was performing the physical exam and obtaining history of present illness from the patient he had an episode of bradycardia, cyanosis and hypoxia. The patient was placed on supplemental oxygen. This episode of bradycardia lasted for roughly 10 seconds and then spontaneously resolved. The patient immediately had an EKG obtained and reviewed by myself that had an undetermined rhythm of 92 bpm P waves did not appear to be appreciated and QRS duration was widened 194 ms with a right bundle branch block pattern. The patient developed another bradycardic episode shortly after that on the monitor appeared to be a complete heart block. At this time ACLS protocol was followed with intent to identify and treat the underlying cause of the patient's bradycardic rhythm. The patient was hypoxic and therefore an advanced airway was obtained. RSI was performed at 0853 and the patient was given etomidate for sedation followed by succinylcholine. A 7.50 endotracheal tube was seen in past going to the courts by myself. The tube was confirmed to be in good placement with equal symmetrical breath sounds are bilaterally, condensation seen within the tube, good capnometry change 6 and a chest radiograph that indicated the tube was in good placement with no evidence of a pneumothorax, no infiltrates, no mediastinum, and no pulmonary edema. At 09 15 the patient was asystolic and CPR was started. Again ACLS protocol was followed. During the patient's cardiac arrest he developed a wide- complex tachycardia and given that he was unstable with pulseless ventricular tachycardia he did receive cardioversion. The patient had also been given 300 mg of IV amiodarone. 12 Lead EKG tracing ordered and reviewed by myself showed at 9:20: Wide complex tachycardia with a ventricular rate of 111 bpm WI interval not appreciated is there was no P waves present. QRS duration normal. No ST segment elevation ST segment depression in the lateral leads. The patient had 3 further episodes of cardiac arrest with return of spontaneous circulation. During that time the patient was bradycardic. He had received atropine with no improvement of his bradycardia. Given that the anti- bradycardic effects of atropine are usually on the AV node, and there was no improvement in the patient's bradycardia with atropine, therefore this was unlikely to be effective due to a conduction block. I also obtained an emergent bedside echocardiogram that indicated the patient had an ejection fraction of 10% with no cardiac tamponade or effusion. I reviewed the patient's medication list and his indicates he has been very compliant with all his medications therefore unlikely his bradycardia was a result of supratherapeutic levels of beta blockers, calcium channel blockers or digoxin which the patient is not currently taking. The patient had been placed on propofol for appropriate sedation and analgesia after intubation and transcutaneous pacing was attempted but there is no improvement of the patient's bradycardia. Therefore I began an infusion of a chronotropic agent epinephrine which improved the patient's bradycardia. I placed a consult to the drill press operator numerical control Dr. Jon, who kindly came to the hospital emergently, and took the patient to the cardiac [employer] for emergent pacemaker placement. Ancillary laboratory work showed no leukocytosis, no electrolyte abnormalities and no elevation of the patient's cardiac enzyme. The patient was admitted in serious condition to the intensive care unit under the care of Dr. Osborn. Critical Care: Time: 90 minutes Treatments/Evaluations: Close monitoring and treatment of unstable vital signs, cardiorespiratory, and neurologic status, while maintaining tight balance of fluid, respiratory, and cardiac interventions. Time does not include performing any of the above billable procedures. Departure Diagnosis: Primary Impression: Symptomatic bradycardia Additional Impression: Signs of return of spontaneous circulation Condition: Serious ABIODUN HOUSTON Jan 17, 2017 07:07
[2017-01-17] MEDS ORDERED: FUROSEMIDE 40 MG INJ IV ONE (08:00)
--- NOTE | 2017-01-17 08:03 | PN ---
Date/Time of Note Date/Time of Note DATE: 01/17/17 TIME: 07:59 Assessment/Plan VTE Prophylaxis VTE Prophylaxis Intervention: heparin Lines/Catheters IV [facility]from [facility] Venous sheath Urinary Cath still in place: Yes Reason Cath still needed: urinary retention Assessment/Plan Problems: (1) Status post placement of cardiac pacemaker Status: Acute Comment: This appears to be capturing. This is holding his circulatory issues together. We will now work on treating his other cardiac issues which are considerable (2) Chronic systolic CHF (congestive heart failure), NYHA class 4 Status: Chronic Comment: Go back to the treatment using NISA inhibitors; diuretic; decision regarding entrusted when the patient is not critically ill. (3) Acute systolic CHF (congestive heart failure), NYHA class 4 Status: Acute Comment: Diuresis the patient he is still actively in significant heart failure and volume overload (4) Diabetes mellitus type 2 in obese Status: Chronic Comment: Adequate control. Please note that he has chronic kidney disease and has brief acute rise in his creatinine after the multiple resuscitation (5) Respiratory failure with hypoxia Status: Acute Comment: He remains on the ventilator will work toward getting his volume status proved to the point he can be extubated Qualifiers: Chronicity: acute Qualified Code: J96.01 - Acute respiratory failure with hypoxia (6) Hypertension Status: Chronic Comment: Controlled Qualifiers: Hypertension type: essential hypertension Qualified Code: I10 - Essential hypertension (7) Hyperlipidemia Status: Chronic Comment: On treatment Qualifiers: Hyperlipidemia type: pure hypercholesterolemia Qualified Code: E78.00 - Pure hypercholesterolemia (8) Chronic kidney disease, stage II (mild) Status: Chronic Comment: Noted. Subjective 24 Hr Interval Summary Free Text/Dictation Patient is intubated on a propofol drip. Subjective hx not possible: pt critical status Exam/Review of Systems Vital Signs Vitals Vital Signs Date Time Temp Pulse Resp B/P Pulse Ox O2 Delivery O2 Flow Rate FiO2 01/17/17 07:30 98.7 70 16 112/50 99 01/17/17 07:15 Mechanical Ventilator 01/17/17 05:10 50 01/16/17 09:04 15.0 Intake and Output 01/16/17 01/16/17 01/17/17 15:00 23:00 07:00 Intake Total 65.0 ml 200 ml 346 ml Output Total 400 ml 355 ml 360 ml Balance -335.0 ml -155 ml -14 ml Exam Constitutional: other (Opens eyes to noxious stimuli please note on propofol drip) Eyes: EOMI, nl conjunctiva, nl lids, nl sclera Neck: non-tender, supple Respiratory: crackles/rales, normal air movement Cardiovascular: nl pulses, other (Please note the nursing notes from yesterday on the right hand where the a line as he now has normal capillary refill also on the left), regular rate and rhythm Gastrointestinal: nl liver, spleen, non-tender, soft Results Result Diagram: 01/17/17 0350 01/17/17 0350 Results 24 hrs Laboratory Tests Test 01/16/17 08:40 01/16/17 08:43 01/16/17 09:34 01/16/17 14:38 Activated Partial Thromboplast Time 27.9 Alanine Aminotransferase (ALT/SGPT) 27 Albumin 3.7 Albumin/Globulin Ratio 1.19 Alkaline Phosphatase 109 Anion Gap 17 H Aspartate Amino Transf (AST/SGOT) 23 B-Type Natriuretic Peptide 4220 H Basophils # 0.1 Basophils % 0.6 Blood Urea Nitrogen 39 H Calcium Level 9.1 Carbon Dioxide Level 24 Chloride Level 107 Creatine Kinase 87 132 Creatine Kinase Index 1.2 2.8 Creatinine 1.67 H Creatinine Kinase MB (Mass) 1.03 3.76 H Direct Bilirubin 0.00 Eosinophils # 0.2 Eosinophils % 2.7 Globulin 3.10 Glucose Level 204 Hematocrit 40.5 L Hemoglobin 13.2 L INR International Normalized Ratio 1.16 Indirect Bilirubin 0.3 Lipase 101 Lymphocytes # 1.4 Lymphocytes % 15.5 Mean Corpuscular Hemoglobin 28.9 L Mean Corpuscular Hemoglobin Concent 32.6 Mean Corpuscular Volume 88.6 Mean Platelet Volume 12.5 H Monocytes # 0.7 Monocytes % 8.5 Neutrophils # 6.3 Neutrophils % 72.4 Nucleated Red Blood Cells # 0.0 Nucleated Red Blood Cells % 0.0 Platelet Count 201 Potassium Level 4.3 Prothrombin Time 14.9 H Prothrombin Time Ratio 1.2 Red Blood Count 4.57 L Red Cell Distribution Width 16.8 H Sodium Level 144 Total Bilirubin 0.3 Total Protein 6.8 Troponin I 0.094 0.624 *H White Blood Count 8.7 Bedside Glucose 192 Arterial Blood HCO3 23.1 Arterial Blood Base Excess -4.7 L Arterial Blood Oxygen Saturation 99.4 Srikanth Test ACCEPTAB Arterial Blood Gas Puncture Site Left Radial Arterial Blood Carboxyhemoglobin 0.2 Arterial Blood Date Drawn 01/16/2017 9:15:00 AM Arterial Blood Methemoglobin 0.2 Arterial Blood pCO2 (Temp correct) 54.5 H Arterial Blood pH (Temp corrected) 7.246 *L Arterial Blood pO2 (Temp corrected) 334.5 H Blood Gas A-a O2 Differential 324.0 H Blood Gas Actual Respiration Rate 14 Blood Gas Critical Value Read Back DR YAZAN Leach Blood Gas Low PEEP Setting 5.0 Blood Gas Modality VENT - AC Blood Gas Notified Time 01/16/2017 9:42:00 AM Blood Gas Notified Whom JLD Blood Gas Respiration Rate 14.0 Blood Gas Specimen Source Blood arterial Blood Gas Temperature 37.0 Blood Gas Tidal Volume 500.0 FiO2 100.0 Oxyhemoglobin Percent 99.0 Total Hemoglobin 13.1 Test 01/16/17 17:26 01/16/17 18:10 01/16/17 21:00 01/16/17 21:30 Bedside Glucose 206 Anion Gap 16 Basophils # 0.1 Basophils % 0.3 Blood Urea Nitrogen 30 H Calcium Level 6.0 L Carbon Dioxide Level 19 L Chloride Level 116 H Creatinine 1.35 H Eosinophils # 0.0 Eosinophils % 0.2 Glucose Level 158 Hematocrit 37.0 L Hemoglobin 11.5 L Lymphocytes # 1.9 Lymphocytes % 12.0 L Magnesium Level 1.8 Mean Corpuscular Hemoglobin 28.9 L Mean Corpuscular Hemoglobin Concent 31.1 L Mean Corpuscular Volume 93.0 Mean Platelet Volume 12.1 H Monocytes # 1.5 H Monocytes % 9.3 Neutrophils # 12.2 H Neutrophils % 77.6 H Nucleated Red Blood Cells # 0.0 Nucleated Red Blood Cells % 0.0 Phosphorus Level 3.9 Platelet Count 175 Potassium Level 2.9 *L Red Blood Count 3.98 L Red Cell Distribution Width 16.6 H Sodium Level 148 H White Blood Count 15.8 #H Creatine Kinase 192 Creatine Kinase Index 2.6 Creatinine Kinase MB (Mass) 5.00 H Troponin I 0.777 *H Arterial Blood HCO3 22.2 Arterial Blood Base Excess -3.1 L Arterial Blood Oxygen Saturation 97.1 Srikanth Test N/A Arterial Blood Gas Puncture Site A-Line Arterial Blood Carboxyhemoglobin 0.1 Arterial Blood Date Drawn 01/16/2017 10:13:39 PM Arterial Blood Methemoglobin 0.2 Arterial Blood pCO2 (Temp correct) 40.8 Arterial Blood pH (Temp corrected) 7.354 Arterial Blood pO2 (Temp corrected) 105.1 H Blood Gas A-a O2 Differential 205.5 H Blood Gas Actual Respiration Rate 16 Blood Gas Inspiratory Pressure 31.0 Blood Gas Low PEEP Setting 5.0 Blood Gas Mean Airway Pressure 11 Blood Gas Modality VENT - AC Blood Gas Notified Time 01/16/2017 10:27:26 PM Blood Gas Notified Whom [employer] Blood Gas Respiration Rate 16.0 Blood Gas Specimen Source Blood arterial Blood Gas Temperature 37.0 Blood Gas Tidal Volume 500.0 FiO2 50.0 Oxyhemoglobin Percent 96.8 Total Hemoglobin 12.9 Test 01/16/17 22:21 01/16/17 23:25 01/17/17 01:39 01/17/17 02:28 Bedside Glucose 188 214 185 Creatine Kinase 171 Creatine Kinase Index 2.5 Creatinine Kinase MB (Mass) 4.20 H Troponin I 0.653 *H Test 01/17/17 03:50 01/17/17 05:47 Anion Gap 15 Basophils # 0.0 Basophils % 0.4 Blood Urea Nitrogen 41 #H Calcium Level 8.6 Carbon Dioxide Level 25 Chloride Level 109 Cholesterol Level 91 L Cholesterol/HDL Ratio 2.7 Creatinine 1.74 H Eosinophils # 0.1 Eosinophils % 0.4 Glucose Level 159 HDL Cholesterol 33 Hematocrit 36.9 L Hemoglobin 11.6 L LDL Cholesterol, Calculated 30 Lymphocytes # 0.9 Lymphocytes % 8.0 L Magnesium Level 1.8 Mean Corpuscular Hemoglobin 28.2 L Mean Corpuscular Hemoglobin Concent 31.4 L Mean Corpuscular Volume 89.8 Mean Platelet Volume 13.2 H Monocytes # 1.0 H Monocytes % 8.4 Neutrophils # 9.4 H Neutrophils % 82.4 H Nucleated Red Blood Cells # 0.0 Nucleated Red Blood Cells % 0.0 Platelet Count 190 Potassium Level 4.4 Red Blood Count 4.11 L Red Cell Distribution Width 16.8 H Sodium Level 145 H Triglycerides Level 140 White Blood Count 11.4 #H Bedside Glucose 150 Medications Medications Current Medications Miscellaneous Information (* Miscellaneous Pharmacy Order) DC all Lovenox, Hepari... ONCE XX ; Start 01/16/17 at 12:00 Enoxaparin Sodium (Lovenox) 30 mg DAILY SC ; Start 01/17/17 at 09:00 Famotidine (Pepcid Iv) 20 mg DAILY IV ; Start 01/17/17 at 09:00 Ondansetron HCl (Zofran Inj) 4 mg Q6H PRN IV NAUSEA AND/OR VOMITING; Start at 13:30 Acetaminophen (Tylenol Liquid) 650 mg Q6H PRN PO PAIN LEVEL 1-3 OR FEVER; Start 01/16/17 at 13:30 Acetaminophen (Tylenol Tab) 650 mg Q6H PRN PO PAIN LEVEL 1-3 OR FEVER; Start at 13:30 Morphine Sulfate (morphine) 2 mg Q4H PRN IV PAIN LEVEL 7-10; Start 01/16/17 at 13:30 Lorazepam (Ativan) 1 mg Q2H PRN IV ANXIETY; Start 01/16/17 at 13:30 Docusate Sodium 100 mg 100 mg Q12H PRN PO CONSTIPATION; Start 01/16/17 at 13:30 Propofol (Diprivan) 100 ml @ 3.261 mls/ hr Q12H IV Last administered on 05:45; Admin Dose 16.305 MLS/HR; Start 01/16/17 at 13:30 Allopurinol (Zyloprim) 100 mg DAILY PO ; Start 01/17/17 at 09:00 Aspirin (Aspirin) 81 mg DAILY PO ; Start 01/17/17 at 09:00 Atorvastatin Calcium (Lipitor) 80 mg QHS PO Last administered on 01/16/17 22: 16; Admin Dose 80 MG; Start 01/16/17 at 21:00 Furosemide (Lasix) 20 mg DAILY PO ; Start 01/17/17 at 09:00 Insulin Glargine (Lantus) 15 unit DAILY SC ; Start 01/17/17 at 09:00 Lisinopril (Zestril) 2.5 mg QAM PO ; Start 01/17/17 at 09:00 Spironolactone (Aldactone) 12.5 mg QAM PO ; Start 01/17/17 at 09:00 Clopidogrel Bisulfate 75 mg 75 mg DAILY PO ; Start 01/17/17 at 09:00 Ceftriaxone Sodium (Rocephin) 50 ml @ 100 mls/hr Q24H IVPB Last administered on 01/16/17 14:00; Admin Dose 100 MLS/HR; Start 01/16/17 at 14:00 Miscellaneous Information 1 ea NOTE XX ; Start 01/16/17 at 14:00 Glucose (Glutose) 15 gm Q15M PRN PO DECREASED GLUCOSE; Start 01/16/17 at 14:00 Glucose (Glutose) 22.5 gm Q15M PRN PO DECREASED GLUCOSE; Start 01/16/17 at 14: 00 Dextrose (D50w Syringe) 25 ml Q15M PRN IV DECREASED GLUCOSE; Start 01/16/17 at 14:00 Dextrose (D50w Syringe) 50 ml Q15M PRN IV DECREASED GLUCOSE; Start 01/16/17 at 14:00 Glucagon (Glucagen) 1 mg Q15M PRN IM DECREASED GLUCOSE; Start 01/16/17 at 14:00 Glucose (Glutose) 15 gm Q15M PRN BUCCAL DECREASED GLUCOSE; Start 01/16/17 at 14 :00 Insulin Aspart NOVOLOG *MILD* ALGORI... Q4 SC Last administered on 01/17/17 05 :51; Admin Dose 1 UNIT; Start 01/16/17 at 17:00 Epinephrine/ Sodium Chloride (EPINEPHrine/NS) 250 ml @ 3.75 mls/hr TITRATE IV Last administered on 01/16/17 21:00; Admin Dose 15 MLS/HR; Start 01/16/17 at 18 :00 KELLI ABRAHAM MD Jan 17, 2017 08:03
[2017-01-17 08:21] LABS: AADO2 Arterial 197.3 mmHg (7.0-24.0); Arterial COHb 0.3 % (0.0-3.0); Arterial Fraction of Oxyhgb 97.3 % (93.0-99.0); Arterial HCO3 22.5 mmol/L (22.0-26.0); Arterial MetHb 0.2 % (0.0-1.5); Arterial Total Hemglobin 12.1 g/dl (12.0-18.0); MODE VENT - AC
--- NOTE | 2017-01-17 08:27 | SP ---
DATE OF PROCEDURE: REFERRING PHYSICIAN: Yasmani Montanez MD INDICATIONS FOR PACEMAKER: 1. Bradycardia. 2. Complete heart block. 3. Asystole. 4. Inability to capture with temporary pacemaker NAME OF PROCEDURE: 1. Single chamber pacemaker placement. 2. Fluoroscopy with interpretation. 3. Upper extremity venogram with contrast. 4. Removal of temporary pacemaker. DESCRIPTION OF PROCEDURE: Before the procedure the informed consent was obtained from the family. The patient brought into the [facility] where he had a temporary pacer placed and then he was transfer red to the operating room. The left side of his chest was prepped and draped in the usual sterile f ashion, 1% lidocaine was used for local analgesia. Using a #10 scalpel, a 3 cm incision was made ov er the upper extremity. Using cautery and blunt dissection, the pocket was created. The upper extr emity venogram was performed using modified Seldinger technique, subclavian vein was cannulated and J-wire passed easily. From there, the patient had a 6-Macedonian sheath put in and RV lead advanced eas luc. It was actively fixed into RV apex. Some slack was left inside the sheath and the sheath was p ulled away. The lead was sutured to the muscle layer with 0 Ethibond sutures. The lead was call box wirer d to the generator, pocket was irrigated with antibiotic solution and the entire system was placed i nside the pocket. The skin was closed with multiple layers of 2-0 Vicryl sutures. Steri-Strips wer e placed on top of the incision. The patient appears to have tolerated the procedure well. He is 1 00% paced now at a rate of 70. I removed the temporary pacemaker afterward and confirmed appropriat e pacing function. The patient is in stable but guarded condition. He will be transferred to ICU f or monitoring. Initial Thresholds: Impedance 650 ohms, threshold 0.4 volts at 0.5 msec. This is a [employer]otron[employer] pacem felipa. Dictated By: BUD ALVAREZ MD ML/NTS Conf#: [id number] DID#: [id number]
[2017-01-17] MEDS: SPIRONOLACTONE 25 MG TAB PO SCH (08:40)
[2017-01-17] MEDS: ACETYLCYSTEINE 600 MG CAP NGT SCH ×2 (08:40→20:46)
[2017-01-17] MEDS: FAMOTIDINE 20 MG INJ IV SCH (08:40)
[2017-01-17] MEDS: CLOPIDOGREL 75 MG TAB PO SCH (08:41)
[2017-01-17] MEDS: ASPIRIN 81 MG TAB PO SCH (08:41)
[2017-01-17] MEDS: LISINOPRIL 5 MG TAB PO SCH (08:42)
[2017-01-17] MEDS: ALLOPURINOL 100 MG TAB PO SCH (08:42)
--- NOTE | 2017-01-17 08:43 | RADRPT ---
PROCEDURE: XR Chest. CLINICAL INDICATION: CHF TECHNIQUE: A single AP view of the chest was obtained. COMPARISON: Chest x-ray dated 01/16/2017 FINDINGS: There are postoperative changes with sternotomy wires. The endotracheal tube tip is approximately 1 .9 cm above the chrissy. The tip of the enteric tube is within the right upper quadrant. There is a single lead left subclavian pacemaker. Lung volumes are low. There is diffuse prominence of the interstitial markings. No pneumothorax is seen. The cardiomediastinal silhouette is mildly enlarged. Calcifications are seen within the aorti c arch. The osseous structures are unremarkable. IMPRESSION: 1. Low lung volumes with mild interstitial edema. Overall, no significant interval change. 2. Stable post cardiac surgery changes. 3. Mild cardiomegaly and aortic atherosclerosis. 4. Tubes and lines, as described above. RPTAT: HH .Anita Adkins MD, MD Date Time Electronically viewed and signed by .Anita Adkins MD, on 01/17/2017 08:43 .G/
[2017-01-17] MEDS: INSULIN GLARGINE [LANtus] 3 ML PEN SC SCH (08:44)
[2017-01-17] MEDS: ENOXAPARIN 30 MG/0.3 ML SYG SC SCH (08:46)
[2017-01-17] MEDS ORDERED: FUROSEMIDE 20 MG TAB PO SCH (09:00)
--- NOTE | 2017-01-17 09:14 | CONS ---
Date/Time of Note Date/Time of Note DATE: 01/17/17 TIME: 09:10 Assessment/Plan Assessment/Plan Additional Assessment/Plan Ventilator settings; AC of 16, tidal volume 500, PEEP of 5, 50% FiO2. Chest x-ray was reviewed from today which is showing cardio megaly. Pacemaker in left chest wall. Sternal wires are again identified. Endotracheal tube is at an adequate level. Mild bilateral pulmonary congestion is present. Assessment and recommendations; 1. Patient admitted with severe bradycardia leading to cardiac arrest. However patient has excellent mental status off sedation. 2. History of coronary artery disease status post bypass surgery in the remote past. 3. Decompensated congestive heart failure. 4. Status post pacemaker implantation. 5. Diabetes. 6. History of renal insufficiency. 7. Possibly underlying sleep apnea as well. Continue current supportive care. Patient currently is not ready for weaning from ventilator. He has been re-sedated. Continue current supportive care. Continue intravenous Lasix, however I would recommend increasing the dosing to 40 mg every 12 hours. Obtain follow-up chest x-ray in 24 hours. I did have a detailed discussion the patient's caregiver who also lives with him permanently and answered all her questions. Consultation Date/Type/Reason Admit Date/Time Jan 16, 2017 at 14:14 Initial Consult Date 01/16/17 Type of Consultation: Pulmonary/critical care 24 HR Interval Summary Free Text/Dictation Patient's condition remains critical. Still requiring full ventilator support. And was given a sedation vacation short while ago ,the patient is completely awake follows commands, moves all 4 extremities. Does complain of mild shortness of breath. He also did not do well on CPAP and had to be reverted back to assist control mode. General examination; elderly male, orally intubated, awake, alert. Currently in no distress. Exam/Review of Systems Vital Signs Vitals Vital Signs Date Time Temp Pulse Resp B/P Pulse Ox O2 Delivery O2 Flow Rate FiO2 01/17/17 07:30 98.7 70 16 112/50 99 01/17/17 07:15 Mechanical Ventilator 01/17/17 05:10 50 01/16/17 09:04 15.0 Intake and Output 01/16/17 01/16/17 01/17/17 15:00 23:00 07:00 Intake Total 65.0 ml 200 ml 346 ml Output Total 400 ml 355 ml 360 ml Balance -335.0 ml -155 ml -14 ml Exam H EENT examination; supple neck, positive JVD. No lymphadenopathy. Midline trachea. He was a midsize reactive to light bilaterally. No neck masses. No thyromegaly. No neck bruits. Next Chest examination; diminished but clear breath sounds bilaterally. S1-S2 audible, no murmurs. There is a dressing applied over the left chest wall pacemaker. There is a well-healed sternal scar present. Abdomen examination; soft, no organomegaly. Bowel sounds audible. Nontender. Extremity examination; trace peripheral edema. Pulses 1+ bilaterally. DORMITORY MAID examination; no focal deficit. Results Result Diagram: 01/17/17 0350 01/17/17 0350 Results 24 hrs Laboratory Tests Test 01/16/17 09:34 01/16/17 14:38 01/16/17 17:26 01/16/17 18:10 Arterial Blood HCO3 23.1 Arterial Blood Base Excess -4.7 L Arterial Blood Oxygen Saturation 99.4 Srikanth Test ACCEPTAB Arterial Blood Gas Puncture Site Left Radial Arterial Blood Carboxyhemoglobin 0.2 Arterial Blood Date Drawn 01/16/2017 9:15:00 AM Arterial Blood Methemoglobin 0.2 Arterial Blood pCO2 (Temp correct) 54.5 H Arterial Blood pH (Temp corrected) 7.246 *L Arterial Blood pO2 (Temp corrected) 334.5 H Blood Gas A-a O2 Differential 324.0 H Blood Gas Actual Respiration Rate 14 Blood Gas Critical Value Read Back DR YAZAN Leach Blood Gas Low PEEP Setting 5.0 Blood Gas Modality VENT - AC Blood Gas Notified Time 01/16/2017 9:42:00 AM Blood Gas Notified Whom JLD Blood Gas Respiration Rate 14.0 Blood Gas Specimen Source Blood arterial Blood Gas Temperature 37.0 Blood Gas Tidal Volume 500.0 FiO2 100.0 Oxyhemoglobin Percent 99.0 Total Hemoglobin 13.1 Creatine Kinase 132 Creatine Kinase Index 2.8 Creatinine Kinase MB (Mass) 3.76 H Troponin I 0.624 *H Bedside Glucose 206 Anion Gap 16 Basophils # 0.1 Basophils % 0.3 Blood Urea Nitrogen 30 H Calcium Level 6.0 L Carbon Dioxide Level 19 L Chloride Level 116 H Creatinine 1.35 H Eosinophils # 0.0 Eosinophils % 0.2 Glucose Level 158 Hematocrit 37.0 L Hemoglobin 11.5 L Lymphocytes # 1.9 Lymphocytes % 12.0 L Magnesium Level 1.8 Mean Corpuscular Hemoglobin 28.9 L Mean Corpuscular Hemoglobin Concent 31.1 L Mean Corpuscular Volume 93.0 Mean Platelet Volume 12.1 H Monocytes # 1.5 H Monocytes % 9.3 Neutrophils # 12.2 H Neutrophils % 77.6 H Nucleated Red Blood Cells # 0.0 Nucleated Red Blood Cells % 0.0 Phosphorus Level 3.9 Platelet Count 175 Potassium Level 2.9 *L Red Blood Count 3.98 L Red Cell Distribution Width 16.6 H Sodium Level 148 H White Blood Count 15.8 #H Test 01/16/17 21:00 01/16/17 21:30 01/16/17 22:21 01/16/17 23:25 Creatine Kinase 192 Creatine Kinase Index 2.6 Creatinine Kinase MB (Mass) 5.00 H Troponin I 0.777 *H Arterial Blood HCO3 22.2 Arterial Blood Base Excess -3.1 L Arterial Blood Oxygen Saturation 97.1 Srikanth Test N/A Arterial Blood Gas Puncture Site A-Line Arterial Blood Carboxyhemoglobin 0.1 Arterial Blood Date Drawn 01/16/2017 10:13:39 PM Arterial Blood Methemoglobin 0.2 Arterial Blood pCO2 (Temp correct) 40.8 Arterial Blood pH (Temp corrected) 7.354 Arterial Blood pO2 (Temp corrected) 105.1 H Blood Gas A-a O2 Differential 205.5 H Blood Gas Actual Respiration Rate 16 Blood Gas Inspiratory Pressure 31.0 Blood Gas Low PEEP Setting 5.0 Blood Gas Mean Airway Pressure 11 Blood Gas Modality VENT - AC Blood Gas Notified Time 01/16/2017 10:27:26 PM Blood Gas Notified Phillip [employer] Blood Gas Respiration Rate 16.0 Blood Gas Specimen Source Blood arterial Blood Gas Temperature 37.0 Blood Gas Tidal Volume 500.0 FiO2 50.0 Oxyhemoglobin Percent 96.8 Total Hemoglobin 12.9 Bedside Glucose 188 214 Test 01/17/17 01:39 01/17/17 02:28 01/17/17 03:50 01/17/17 05:47 Bedside Glucose 185 150 Creatine Kinase 171 Creatine Kinase Index 2.5 Creatinine Kinase MB (Mass) 4.20 H Troponin I 0.653 *H Anion Gap 15 Basophils # 0.0 Basophils % 0.4 Blood Urea Nitrogen 41 #H Calcium Level 8.6 Carbon Dioxide Level 25 Chloride Level 109 Cholesterol Level 91 L Cholesterol/HDL Ratio 2.7 Creatinine 1.74 H Eosinophils # 0.1 Eosinophils % 0.4 Glucose Level 159 HDL Cholesterol 33 Hematocrit 36.9 L Hemoglobin 11.6 L LDL Cholesterol, Calculated 30 Lymphocytes # 0.9 Lymphocytes % 8.0 L Magnesium Level 1.8 Mean Corpuscular Hemoglobin 28.2 L Mean Corpuscular Hemoglobin Concent 31.4 L Mean Corpuscular Volume 89.8 Mean Platelet Volume 13.2 H Monocytes # 1.0 H Monocytes % 8.4 Neutrophils # 9.4 H Neutrophils % 82.4 H Nucleated Red Blood Cells # 0.0 Nucleated Red Blood Cells % 0.0 Platelet Count 190 Potassium Level 4.4 Red Blood Count 4.11 L Red Cell Distribution Width 16.8 H Sodium Level 145 H Triglycerides Level 140 White Blood Count 11.4 #H Test 01/17/17 07:00 01/17/17 08:35 Arterial Blood HCO3 22.5 Arterial Blood Base Excess -2.0 Arterial Blood Oxygen Saturation 97.8 Srikanth Test N/A Arterial Blood Gas Puncture Site A-Line Arterial Blood Carboxyhemoglobin 0.3 Arterial Blood Date Drawn 01/17/2017 8:10:35 AM Arterial Blood Methemoglobin 0.2 Arterial Blood pCO2 (Temp correct) 37.5 Arterial Blood pH (Temp corrected) 7.396 Arterial Blood pO2 (Temp corrected) 117.0 H Blood Gas A-a O2 Differential 197.3 H Blood Gas Actual Respiration Rate 17 Blood Gas Low PEEP Setting 5.0 Blood Gas Modality VENT - AC Blood Gas Notified Time 01/17/2017 8:21:00 AM Blood Gas Notified Whom DTAYLOR Blood Gas Respiration Rate 16.0 Blood Gas Specimen Source Blood arterial Blood Gas Temperature 37.0 Blood Gas Tidal Volume 500.0 FiO2 50.0 Oxyhemoglobin Percent 97.3 Total Hemoglobin 12.1 Bedside Glucose 173 Medications Medications Current Medications Miscellaneous Information (* Miscellaneous Pharmacy Order) DC all Lovenox, Hepari... ONCE XX ; Start 01/16/17 at 12:00 Enoxaparin Sodium (Lovenox) 30 mg DAILY SC ; Start 01/17/17 at 09:00 Famotidine (Pepcid Iv) 20 mg DAILY IV ; Start 01/17/17 at 09:00 Ondansetron HCl (Zofran Inj) 4 mg Q6H PRN IV NAUSEA AND/OR VOMITING; Start at 13:30 Acetaminophen (Tylenol Liquid) 650 mg Q6H PRN PO PAIN LEVEL 1-3 OR FEVER; Start 01/16/17 at 13:30 Acetaminophen (Tylenol Tab) 650 mg Q6H PRN PO PAIN LEVEL 1-3 OR FEVER; Start at 13:30 Morphine Sulfate (morphine) 2 mg Q4H PRN IV PAIN LEVEL 7-10; Start 01/16/17 at 13:30 Lorazepam (Ativan) 1 mg Q2H PRN IV ANXIETY; Start 01/16/17 at 13:30 Docusate Sodium 100 mg 100 mg Q12H PRN PO CONSTIPATION; Start 01/16/17 at 13:30 Propofol (Diprivan) 100 ml @ 3.261 mls/ hr Q12H IV Last administered on 05:45; Admin Dose 16.305 MLS/HR; Start 01/16/17 at 13:30 Allopurinol (Zyloprim) 100 mg DAILY PO ; Start 01/17/17 at 09:00 Aspirin (Aspirin) 81 mg DAILY PO ; Start 01/17/17 at 09:00 Atorvastatin Calcium (Lipitor) 80 mg QHS PO Last administered on 01/16/17 22: 16; Admin Dose 80 MG; Start 01/16/17 at 21:00 Furosemide (Lasix) 20 mg DAILY PO ; Start 01/17/17 at 09:00 Insulin Glargine (Lantus) 15 unit DAILY SC ; Start 01/17/17 at 09:00 Lisinopril (Zestril) 2.5 mg QAM PO ; Start 01/17/17 at 09:00 Spironolactone (Aldactone) 12.5 mg QAM PO ; Start 01/17/17 at 09:00 Clopidogrel Bisulfate 75 mg 75 mg DAILY PO ; Start 01/17/17 at 09:00 Ceftriaxone Sodium (Rocephin) 50 ml @ 100 mls/hr Q24H IVPB Last administered on 01/16/17 14:00; Admin Dose 100 MLS/HR; Start 01/16/17 at 14:00 Miscellaneous Information 1 ea NOTE XX ; Start 01/16/17 at 14:00 Glucose (Glutose) 15 gm Q15M PRN PO DECREASED GLUCOSE; Start 01/16/17 at 14:00 Glucose (Glutose) 22.5 gm Q15M PRN PO DECREASED GLUCOSE; Start 01/16/17 at 14: 00 Dextrose (D50w Syringe) 25 ml Q15M PRN IV DECREASED GLUCOSE; Start 01/16/17 at 14:00 Dextrose (D50w Syringe) 50 ml Q15M PRN IV DECREASED GLUCOSE; Start 01/16/17 at 14:00 Glucagon (Glucagen) 1 mg Q15M PRN IM DECREASED GLUCOSE; Start 01/16/17 at 14:00 Glucose (Glutose) 15 gm Q15M PRN BUCCAL DECREASED GLUCOSE; Start 01/16/17 at 14 :00 Insulin Aspart NOVOLOG *MILD* ALGORI... Q4 SC Last administered on 01/17/17 05 :51; Admin Dose 1 UNIT; Start 01/16/17 at 17:00 Epinephrine/ Sodium Chloride (EPINEPHrine/NS) 250 ml @ 3.75 mls/hr TITRATE IV Last administered on 01/16/17 21:00; Admin Dose 15 MLS/HR; Start 01/16/17 at 18 :00 Acetylcysteine (Nac) 1,200 mg BID NGT ; Start 01/17/17 at 09:00; Stop 01/20/17 at 08:59 RAJESH VALDES Jan 17, 2017 09:14
[2017-01-17] MEDS: CEFTRIAXONE 1 GM/50 ML (PMX) 50 ML IVPB SCH (13:54)
--- NOTE | 2017-01-17 16:28 | CONS ---
Date/Time of Note Date/Time of Note DATE: 01/17/17 TIME: 16:22 Assessment/Plan Assessment/Plan Additional Assessment/Plan 1. CHF - acute on chronic - EF < 20%, con't diuresis - increased lasix BID now. 2. Symptomatic bradycardia: now with perm pacer - rate in 70s - much better - will monitor clinically now.. 3. Cardiomyopathy. The patient with significant cardiomyopathy, last EF by Dr. Kaba was 30%, now 10%, decreased. 4. Hypertension - Blood pressure now better controlled. No new episodes of cardiac arrest since pacer placed. 5. Coronary artery disease. The patient has history of coronary artery bypass graft per Dr. Kaba. He had a stress test in April of 2016, which showed no reversible ischemia. 6. resp failure - on vent, hope to wean soon 7. ARF - renal team follows, will monitor closely. Consultation Date/Type/Reason Admit Date/Time Jan 16, 2017 at 14:14 Initial Consult Date 01/16/17 Type of Consultation: Pulmonary/critical care 24 HR Interval Summary Free Text/Dictation NO acute change - BP stable - paced 100% - good pacer function - site well. ROS: No fever, no chills, no nausea, no vomiting, no diarrhea/constipation No recent weight changes No chest pain, no PND, no orthopnea No dizziness, blurred vision No thirst, no heat or cold intolerance (per nurse) Exam/Review of Systems Vital Signs Vitals Vital Signs Date Time Temp Pulse Resp B/P Pulse Ox O2 Delivery O2 Flow Rate FiO2 01/17/17 16:15 18 126/59 99 01/17/17 16:00 99.8 70 Mechanical Ventilator 01/17/17 15:00 35 01/16/17 09:04 15.0 Intake and Output 01/16/17 01/16/17 01/17/17 15:00 23:00 07:00 Intake Total 65.0 ml 200 ml 346 ml Output Total 400 ml 355 ml 360 ml Balance -335.0 ml -155 ml -14 ml Exam General: WN/WD/NAD, AOx more awake when off sedation HEENT: Unicetric/atraumatic/EOMI (does not follow commands) NECK: JVD elevated, no thyromegaly Lymph: no lymphadenopathy HEART: regular with no S3, II/ systolic murmur at apex, pacer in place LUNGS: Coarse sounds ABD: soft, NT, ND, +BS : Intact Neuro: non focal SKIN: chronic changes EXT: some edema Results Result Diagram: 01/17/17 0350 01/17/17 0350 Results 24 hrs Laboratory Tests Test 01/16/17 17:26 01/16/17 18:10 01/16/17 21:00 01/16/17 21:30 Bedside Glucose 206 Anion Gap 16 Basophils # 0.1 Basophils % 0.3 Blood Urea Nitrogen 30 H Calcium Level 6.0 L Carbon Dioxide Level 19 L Chloride Level 116 H Creatinine 1.35 H Eosinophils # 0.0 Eosinophils % 0.2 Glucose Level 158 Hematocrit 37.0 L Hemoglobin 11.5 L Lymphocytes # 1.9 Lymphocytes % 12.0 L Magnesium Level 1.8 Mean Corpuscular Hemoglobin 28.9 L Mean Corpuscular Hemoglobin Concent 31.1 L Mean Corpuscular Volume 93.0 Mean Platelet Volume 12.1 H Monocytes # 1.5 H Monocytes % 9.3 Neutrophils # 12.2 H Neutrophils % 77.6 H Nucleated Red Blood Cells # 0.0 Nucleated Red Blood Cells % 0.0 Phosphorus Level 3.9 Platelet Count 175 Potassium Level 2.9 *L Red Blood Count 3.98 L Red Cell Distribution Width 16.6 H Sodium Level 148 H White Blood Count 15.8 #H Creatine Kinase 192 Creatine Kinase Index 2.6 Creatinine Kinase MB (Mass) 5.00 H Troponin I 0.777 *H Arterial Blood HCO3 22.2 Arterial Blood Base Excess -3.1 L Arterial Blood Oxygen Saturation 97.1 Srikanth Test N/A Arterial Blood Gas Puncture Site A-Line Arterial Blood Carboxyhemoglobin 0.1 Arterial Blood Date Drawn 01/16/2017 10:13:39 PM Arterial Blood Methemoglobin 0.2 Arterial Blood pCO2 (Temp correct) 40.8 Arterial Blood pH (Temp corrected) 7.354 Arterial Blood pO2 (Temp corrected) 105.1 H Blood Gas A-a O2 Differential 205.5 H Blood Gas Actual Respiration Rate 16 Blood Gas Inspiratory Pressure 31.0 Blood Gas Low PEEP Setting 5.0 Blood Gas Mean Airway Pressure 11 Blood Gas Modality VENT - AC Blood Gas Notified Time 01/16/2017 10:27:26 PM Blood Gas Notified Phillip [facility] Blood Gas Respiration Rate 16.0 Blood Gas Specimen Source Blood arterial Blood Gas Temperature 37.0 Blood Gas Tidal Volume 500.0 FiO2 50.0 Oxyhemoglobin Percent 96.8 Total Hemoglobin 12.9 Test 01/16/17 22:21 01/16/17 23:25 01/17/17 01:39 01/17/17 02:28 Bedside Glucose 188 214 185 Creatine Kinase 171 Creatine Kinase Index 2.5 Creatinine Kinase MB (Mass) 4.20 H Troponin I 0.653 *H Test 01/17/17 03:50 01/17/17 05:47 01/17/17 07:00 01/17/17 08:35 Anion Gap 15 Basophils # 0.0 Basophils % 0.4 Blood Urea Nitrogen 41 #H Calcium Level 8.6 Carbon Dioxide Level 25 Chloride Level 109 Cholesterol Level 91 L Cholesterol/HDL Ratio 2.7 Creatinine 1.74 H Eosinophils # 0.1 Eosinophils % 0.4 Glucose Level 159 HDL Cholesterol 33 Hematocrit 36.9 L Hemoglobin 11.6 L LDL Cholesterol, Calculated 30 Lymphocytes # 0.9 Lymphocytes % 8.0 L Magnesium Level 1.8 Mean Corpuscular Hemoglobin 28.2 L Mean Corpuscular Hemoglobin Concent 31.4 L Mean Corpuscular Volume 89.8 Mean Platelet Volume 13.2 H Monocytes # 1.0 H Monocytes % 8.4 Neutrophils # 9.4 H Neutrophils % 82.4 H Nucleated Red Blood Cells # 0.0 Nucleated Red Blood Cells % 0.0 Platelet Count 190 Potassium Level 4.4 Red Blood Count 4.11 L Red Cell Distribution Width 16.8 H Sodium Level 145 H Triglycerides Level 140 White Blood Count 11.4 #H Bedside Glucose 150 173 Arterial Blood HCO3 22.5 Arterial Blood Base Excess -2.0 Arterial Blood Oxygen Saturation 97.8 Srikanth Test N/A Arterial Blood Gas Puncture Site A-Line Arterial Blood Carboxyhemoglobin 0.3 Arterial Blood Date Drawn 01/17/2017 8:10:35 AM Arterial Blood Methemoglobin 0.2 Arterial Blood pCO2 (Temp correct) 37.5 Arterial Blood pH (Temp corrected) 7.396 Arterial Blood pO2 (Temp corrected) 117.0 H Blood Gas A-a O2 Differential 197.3 H Blood Gas Actual Respiration Rate 17 Blood Gas Low PEEP Setting 5.0 Blood Gas Modality VENT - AC Blood Gas Notified Time 01/17/2017 8:21:00 AM Blood Gas Notified Whom DTAYLOR Blood Gas Respiration Rate 16.0 Blood Gas Specimen Source Blood arterial Blood Gas Temperature 37.0 Blood Gas Tidal Volume 500.0 FiO2 50.0 Oxyhemoglobin Percent 97.3 Total Hemoglobin 12.1 Test 01/17/17 13:50 Bedside Glucose 123 Medications Medications Current Medications Miscellaneous Information (* Miscellaneous Pharmacy Order) DC all Lovenox, Hepari... ONCE XX ; Start 01/16/17 at 12:00 Enoxaparin Sodium (Lovenox) 30 mg DAILY SC Last administered on 01/17/17 08:46 ; Admin Dose 30 MG; Start 01/17/17 at 09:00 Famotidine (Pepcid Iv) 20 mg DAILY IV Last administered on 01/17/17 08:40; Admin Dose 20 MG; Start 01/17/17 at 09:00 Ondansetron HCl (Zofran Inj) 4 mg Q6H PRN IV NAUSEA AND/OR VOMITING; Start at 13:30 Acetaminophen (Tylenol Liquid) 650 mg Q6H PRN PO PAIN LEVEL 1-3 OR FEVER; Start 01/16/17 at 13:30 Acetaminophen (Tylenol Tab) 650 mg Q6H PRN PO PAIN LEVEL 1-3 OR FEVER; Start at 13:30 Morphine Sulfate (morphine) 2 mg Q4H PRN IV PAIN LEVEL 7-10; Start 01/16/17 at 13:30 Lorazepam (Ativan) 1 mg Q2H PRN IV ANXIETY; Start 01/16/17 at 13:30 Docusate Sodium 100 mg 100 mg Q12H PRN PO CONSTIPATION; Start 01/16/17 at 13:30 Propofol (Diprivan) 100 ml @ 3.261 mls/ hr Q12H IV Last administered on 10:48; Admin Dose 19.566 MLS/HR; Start 01/16/17 at 13:30 Allopurinol (Zyloprim) 100 mg DAILY PO Last administered on 01/17/17 08:42; Admin Dose 100 MG; Start 01/17/17 at 09:00 Aspirin (Aspirin) 81 mg DAILY PO Last administered on 01/17/17 08:41; Admin Dose 81 MG; Start 01/17/17 at 09:00 Atorvastatin Calcium (Lipitor) 80 mg QHS PO Last administered on 01/16/17 22: 16; Admin Dose 80 MG; Start 01/16/17 at 21:00 Insulin Glargine (Lantus) 15 unit DAILY SC Last administered on 01/17/17 08:44 ; Admin Dose 15 UNIT; Start 01/17/17 at 09:00 Lisinopril (Zestril) 2.5 mg QAM PO ; Start 01/17/17 at 09:00 Spironolactone (Aldactone) 12.5 mg QAM PO Last administered on 01/17/17 08:40 ; Admin Dose 12.5 MG; Start 01/17/17 at 09:00 Clopidogrel Bisulfate 75 mg 75 mg DAILY PO Last administered on 01/17/17 08:41 ; Admin Dose 75 MG; Start 01/17/17 at 09:00 Ceftriaxone Sodium (Rocephin) 50 ml @ 100 mls/hr Q24H IVPB Last administered on 01/17/17 13:54; Admin Dose 100 MLS/HR; Start 01/16/17 at 14:00 Miscellaneous Information 1 ea NOTE XX ; Start 01/16/17 at 14:00 Glucose (Glutose) 15 gm Q15M PRN PO DECREASED GLUCOSE; Start 01/16/17 at 14:00 Glucose (Glutose) 22.5 gm Q15M PRN PO DECREASED GLUCOSE; Start 01/16/17 at 14: 00 Dextrose (D50w Syringe) 25 ml Q15M PRN IV DECREASED GLUCOSE; Start 01/16/17 at 14:00 Dextrose (D50w Syringe) 50 ml Q15M PRN IV DECREASED GLUCOSE; Start 01/16/17 at 14:00 Glucagon (Glucagen) 1 mg Q15M PRN IM DECREASED GLUCOSE; Start 01/16/17 at 14:00 Glucose (Glutose) 15 gm Q15M PRN BUCCAL DECREASED GLUCOSE; Start 01/16/17 at 14 :00 Insulin Aspart NOVOLOG *MILD* ALGORI... Q4 SC Last administered on 01/17/17 08 :45; Admin Dose 1 UNIT; Start 01/16/17 at 17:00 Epinephrine/ Sodium Chloride (EPINEPHrine/NS) 250 ml @ 3.75 mls/hr TITRATE IV Last administered on 01/16/17 21:00; Admin Dose 15 MLS/HR; Start 01/16/17 at 18 :00 Acetylcysteine (Nac) 1,200 mg BID NGT Last administered on 01/17/17t 08:40; Admin Dose 1,200 MG; Start 01/17/17 at 09:00; Stop 01/20/17 at 08:59 BUD ALVAREZ MD Jan 17, 2017 16:28
[2017-01-17] MEDS: FUROSEMIDE 40 MG INJ IV SCH (17:49)
[2017-01-17] MEDS: ATORVASTATIN 80 MG TAB PO SCH (20:45)
[2017-01-17] MEDS: EPINEPHrine 4 MG in SOD CHLORIDE 0.9% 246 ML IV SCH (20:51)
[2017-01-18] VITALS (76 sets, daily range): BP systolic 79–172; BP diastolic 46–94; PULSE 70–96; RESP 11–35
[2017-01-18] MEDS: INSULIN ASPART [NOVOLOG] 3 ML PEN SC SCH ×6 (01:00→20:54)
[2017-01-18] MEDS: PROPOFOL 100 ML IV SCH ×2 (02:16→06:54)
[2017-01-18 05:05] LABS: ADD SCAN DIFF NO
[2017-01-18 05:14] LABS: BASOPHILS % 0.4 % (0.0-2.0); EOSINOPHILS # 0.1 10^3/ul (0.0-0.5); EOSINOPHILS % 0.7 % (0.0-7.0); HEMATOCRIT 34.1 % (42.0-52.0); HEMOGLOBIN 10.8 g/dl (14.0-18.0); LYMPHOCYTES # 0.9 10^3/ul (0.8-2.9); LYMPHOCYTES % 9.5 % (15.0-51.0); MEAN CORPUSCULAR HEMOGLOBIN 28.5 pg (29.0-33.0); MEAN CORPUSCULAR HGB CONC 31.7 g/dl (32.0-37.0); MEAN PLATELET VOLUME 12.3 fl (7.4-10.4); MONOCYTE # 1.1 10^3/ul (0.3-0.9); MONOCYTES % 10.9 % (0.0-11.0); NEUTROPHIL # 7.6 10^3/ul (1.6-7.5); NEUTROPHILS % 78.2 % (39.0-77.0); PLATELET COUNT 167 10^3/UL (140-415); RED BLOOD COUNT 3.79 10^6/ul (4.70-6.10); WHITE BLOOD COUNT 9.8 10^3/ul (4.8-10.8)
[2017-01-18 05:28] LABS: POTASSIUM 3.7 mmol/L (3.5-5.1)
[2017-01-18 05:31] LABS: CREATININE 2.4 mg/dl (0.61-1.24)
[2017-01-18 05:32] LABS: CALCIUM 8.3 mg/dl (8.4-10.2)
[2017-01-18] MEDS: FUROSEMIDE 40 MG INJ IV SCH ×2 (05:36→18:14)
--- NOTE | 2017-01-18 07:14 | PN ---
Date/Time of Note Date/Time of Note DATE: 01/18/17 TIME: 07:11 Assessment/Plan VTE Prophylaxis VTE Prophylaxis Intervention: other Lines/Catheters [facility] Venous sheath Urinary Cath still in place: Yes Reason Cath still needed: urinary retention Assessment/Plan Problems: (1) Acute kidney injury superimposed on chronic kidney disease Status: Acute Comment: The patient's creatinine has risen overnight. This may be due to volume status changes or other. Will follow this closely, not yet time to call in nephrology (2) Ischemic dilated cardiomyopathy Status: Chronic Comment: He is on appropriate medications for this and is being diuresed (3) Acute systolic CHF (congestive heart failure), NYHA class 4 Status: Acute Comment: Improving in a point where we can consider starting the weaning from the ventilator process. (4) Diabetes mellitus type 2 in obese Status: Chronic Comment: Adequately controlled (5) Obesity (BMI 30-39.9) Status: Chronic Comment: Noted on calorie restriction (6) Chronic kidney disease, stage II (mild) Status: Chronic Comment: Noted please see above (7) Status post placement of cardiac pacemaker Status: Acute Comment: This is resolved the bradycardia and the patient's cardiac status is much more stable. Hopefully we will not have to deal with much of the neurologic injury from the acute events of brought him in Subjective 24 Hr Interval Summary Free Text/Dictation Patient currently remains on ventilator with NG tube support and a propofol drip. Subjective hx not possible: pt non-verbal, pt critical Exam/Review of Systems Vital Signs Vitals Vital Signs Date Time Temp Pulse Resp B/P Pulse Ox O2 Delivery O2 Flow Rate FiO2 01/18/17 05:00 72 16 98 35 01/18/17 04:45 109/56 01/18/17 04:00 99.1 Mechanical Ventilator 01/16/17 09:04 15.0 Intake and Output 01/17/17 01/17/17 01/18/17 15:00 23:00 07:00 Intake Total 80 ml 703.98 ml 154.0 ml Output Total 570 ml 725 ml 325 ml Balance -490 ml -21.02 ml -171.0 ml Exam Constitutional: alert Neck: non-tender, supple Respiratory: clear to auscultation, crackles/rales Cardiovascular: nl pulses, regular rate and rhythm Gastrointestinal: nl liver, spleen, non-tender, soft Results Result Diagram: 01/18/17 0420 01/18/17 0430 Results 24 hrs Laboratory Tests Test 01/17/17 08:35 01/17/17 13:50 01/17/17 17:42 01/17/17 20:38 Bedside Glucose 173 123 113 142 Test 01/18/17 01:09 01/18/17 04:20 01/18/17 04:30 01/18/17 05:34 Bedside Glucose 127 124 Basophils # 0.0 Basophils % 0.4 Eosinophils # 0.1 Eosinophils % 0.7 Hematocrit 34.1 L Hemoglobin 10.8 L Lymphocytes # 0.9 Lymphocytes % 9.5 L Mean Corpuscular Hemoglobin 28.5 L Mean Corpuscular Hemoglobin Concent 31.7 L Mean Corpuscular Volume 90.0 Mean Platelet Volume 12.3 H Monocytes # 1.1 H Monocytes % 10.9 Neutrophils # 7.6 H Neutrophils % 78.2 H Nucleated Red Blood Cells # 0.0 Nucleated Red Blood Cells % 0.0 Platelet Count 167 Red Blood Count 3.79 L Red Cell Distribution Width 17.0 H White Blood Count 9.8 Anion Gap 15 Blood Urea Nitrogen 43 H Calcium Level 8.3 L Carbon Dioxide Level 26 Chloride Level 111 H Creatinine 2.40 H Glucose Level 129 Potassium Level 3.7 Sodium Level 148 H Medications Medications Current Medications Miscellaneous Information (* Miscellaneous Pharmacy Order) DC all Lovenox, Hepari... ONCE XX ; Start 01/16/17 at 12:00 Enoxaparin Sodium (Lovenox) 30 mg DAILY SC Last administered on 01/17/17 08:46 ; Admin Dose 30 MG; Start 01/17/17 at 09:00 Famotidine (Pepcid Iv) 20 mg DAILY IV Last administered on 01/17/17 08:40; Admin Dose 20 MG; Start 01/17/17 at 09:00 Ondansetron HCl (Zofran Inj) 4 mg Q6H PRN IV NAUSEA AND/OR VOMITING; Start at 13:30 Acetaminophen (Tylenol Liquid) 650 mg Q6H PRN PO PAIN LEVEL 1-3 OR FEVER; Start 01/16/17 at 13:30 Acetaminophen (Tylenol Tab) 650 mg Q6H PRN PO PAIN LEVEL 1-3 OR FEVER; Start at 13:30 Morphine Sulfate (morphine) 2 mg Q4H PRN IV PAIN LEVEL 7-10 Last administered on 01/17/17 21:43; Admin Dose 2 MG; Start 01/16/17 at 13:30 Lorazepam (Ativan) 1 mg Q2H PRN IV ANXIETY; Start 01/16/17 at 13:30 Docusate Sodium 100 mg 100 mg Q12H PRN PO CONSTIPATION; Start 01/16/17 at 13:30 Propofol (Diprivan) 100 ml @ 3.261 mls/ hr Q12H IV Last administered on 06:54; Admin Dose 19.566 MLS/HR; Start 01/16/17 at 13:30 Allopurinol (Zyloprim) 100 mg DAILY PO Last administered on 01/17/17 08:42; Admin Dose 100 MG; Start 01/17/17 at 09:00 Aspirin (Aspirin) 81 mg DAILY PO Last administered on 01/17/17 08:41; Admin Dose 81 MG; Start 01/17/17 at 09:00 Atorvastatin Calcium (Lipitor) 80 mg QHS PO Last administered on 01/17/17 20: 45; Admin Dose 80 MG; Start 01/16/17 at 21:00 Insulin Glargine (Lantus) 15 unit DAILY SC Last administered on 01/17/17 08:44 ; Admin Dose 15 UNIT; Start 01/17/17 at 09:00 Lisinopril (Zestril) 2.5 mg QAM PO ; Start 01/17/17 at 09:00 Spironolactone (Aldactone) 12.5 mg QAM PO Last administered on 01/17/17 08:40 ; Admin Dose 12.5 MG; Start 01/17/17 at 09:00 Clopidogrel Bisulfate 75 mg 75 mg DAILY PO Last administered on 01/17/17 08:41 ; Admin Dose 75 MG; Start 01/17/17 at 09:00 Ceftriaxone Sodium (Rocephin) 50 ml @ 100 mls/hr Q24H IVPB Last administered on 01/17/17 13:54; Admin Dose 100 MLS/HR; Start 01/16/17 at 14:00 Miscellaneous Information 1 ea NOTE XX ; Start 01/16/17 at 14:00 Glucose (Glutose) 15 gm Q15M PRN PO DECREASED GLUCOSE; Start 01/16/17 at 14:00 Glucose (Glutose) 22.5 gm Q15M PRN PO DECREASED GLUCOSE; Start 01/16/17 at 14: 00 Dextrose (D50w Syringe) 25 ml Q15M PRN IV DECREASED GLUCOSE; Start 01/16/17 at 14:00 Dextrose (D50w Syringe) 50 ml Q15M PRN IV DECREASED GLUCOSE; Start 01/16/17 at 14:00 Glucagon (Glucagen) 1 mg Q15M PRN IM DECREASED GLUCOSE; Start 01/16/17 at 14:00 Glucose (Glutose) 15 gm Q15M PRN BUCCAL DECREASED GLUCOSE; Start 01/16/17 at 14 :00 Insulin Aspart NOVOLOG *MILD* ALGORI... Q4 SC Last administered on 01/17/17 20 :52; Admin Dose 1 UNIT; Start 01/16/17 at 17:00 Epinephrine/ Sodium Chloride (EPINEPHrine/NS) 250 ml @ 3.75 mls/hr TITRATE IV Last administered on 01/17/17 20:51; Admin Dose 9.37 MLS/HR; Start 01/16/17 at 18:00 Acetylcysteine (Nac) 1,200 mg BID NGT Last administered on 01/17/17 20:46; Admin Dose 1,200 MG; Start 01/17/17 at 09:00; Stop 01/20/17 at 08:59 KELLI ABRAHAM MD Jan 18, 2017 07:14
[2017-01-18] MEDS: LISINOPRIL 5 MG TAB PO SCH (09:00)
--- NOTE | 2017-01-18 09:43 | CONS ---
Date/Time of Note Date/Time of Note DATE: 01/18/17 TIME: 09:38 Assessment/Plan Assessment/Plan Additional Assessment/Plan Ventilator settings; AC of 16, tidal volume 500, PEEP of 5, 35% FiO2. Chest x-ray from today is pending. Assessment recommendations; 1. Patient admitted with severe bradycardia leading to cardiac arrest. 2. Underlying cardiomyopathy. 3. History of renal insufficiency. 4. History of coronary artery disease. 5. History of diabetes. 6. History of hypertension. 7. Patient exhibits good mental status off sedation. 8. History of coronary artery bypass surgery. Continue supportive care. Stop sedation again to assess mental status. Weaning from ventilator will depend upon adequate weaning parameters.I Did have a detailed discussion with the patient's caregiver at bedside and answered all her questions. Consultation Date/Type/Reason Admit Date/Time Jan 16, 2017 at 14:14 Initial Consult Date 01/16/17 Type of Consultation: Pulmonary/critical care 24 HR Interval Summary Free Text/Dictation Patient's condition remains critical. Patient could not tolerate weaning from ventilator yesterday because of tachypnea. Had to be re-sedated. Patient has remained hemodynamically stable. General examination; elderly male, orally intubated, sedated. Currently in no distress. Exam/Review of Systems Vital Signs Vitals Vital Signs Date Time Temp Pulse Resp B/P Pulse Ox O2 Delivery O2 Flow Rate FiO2 01/18/17 08:47 75 01/18/17 08:45 18 121/59 98 01/18/17 08:00 99.2 Mechanical Ventilator 01/18/17 05:00 35 01/16/17 09:04 15.0 Intake and Output 01/17/17 01/17/17 01/18/17 15:00 23:00 07:00 Intake Total 80 ml 703.98 ml 300.0 ml Output Total 570 ml 725 ml 325 ml Balance -490 ml -21.02 ml -25.0 ml Exam H EENT examination; supple neck, positive JVD. No lymphadenopathy. Midline trachea. No thyromegaly. No neck bruits. Pupils are small bilaterally. Bilateral cataracts are present. Patient has a few remaining teeth. Chest examination; clear to auscultation bilaterally. S1-S2 audible, no murmurs. Regular rhythm. There is a dressing applied over the left chest wall pacemaker. There is a well-healed sternal scar present. Abdomen examination; soft, protuberant. No organomegaly. Bowel sounds audible. Extremity examination; trace pitting edema lower extremities bilaterally. Pulses 1+ bilaterally. DEFECT CUTTER examination; patient is sedated. Results Result Diagram: 01/18/17 0420 01/18/17 0430 Results 24 hrs Laboratory Tests Test 01/17/17 13:50 01/17/17 17:42 01/17/17 20:38 01/18/17 01:09 Bedside Glucose 123 113 142 127 Test 01/18/17 04:20 01/18/17 04:30 01/18/17 05:34 Basophils # 0.0 Basophils % 0.4 Eosinophils # 0.1 Eosinophils % 0.7 Hematocrit 34.1 L Hemoglobin 10.8 L Lymphocytes # 0.9 Lymphocytes % 9.5 L Mean Corpuscular Hemoglobin 28.5 L Mean Corpuscular Hemoglobin Concent 31.7 L Mean Corpuscular Volume 90.0 Mean Platelet Volume 12.3 H Monocytes # 1.1 H Monocytes % 10.9 Neutrophils # 7.6 H Neutrophils % 78.2 H Nucleated Red Blood Cells # 0.0 Nucleated Red Blood Cells % 0.0 Platelet Count 167 Red Blood Count 3.79 L Red Cell Distribution Width 17.0 H White Blood Count 9.8 Anion Gap 15 Blood Urea Nitrogen 43 H Calcium Level 8.3 L Carbon Dioxide Level 26 Chloride Level 111 H Creatinine 2.40 H Glucose Level 129 Potassium Level 3.7 Sodium Level 148 H Bedside Glucose 124 Medications Medications Current Medications Miscellaneous Information (* Miscellaneous Pharmacy Order) DC all Lovenox, Hepari... ONCE XX ; Start 01/16/17 at 12:00 Enoxaparin Sodium (Lovenox) 30 mg DAILY SC Last administered on 01/17/17 08:46 ; Admin Dose 30 MG; Start 01/17/17 at 09:00 Famotidine (Pepcid Iv) 20 mg DAILY IV Last administered on 01/17/17 08:40; Admin Dose 20 MG; Start 01/17/17 at 09:00 Ondansetron HCl (Zofran Inj) 4 mg Q6H PRN IV NAUSEA AND/OR VOMITING; Start at 13:30 Acetaminophen (Tylenol Liquid) 650 mg Q6H PRN PO PAIN LEVEL 1-3 OR FEVER; Start 01/16/17 at 13:30 Acetaminophen (Tylenol Tab) 650 mg Q6H PRN PO PAIN LEVEL 1-3 OR FEVER; Start at 13:30 Morphine Sulfate (morphine) 2 mg Q4H PRN IV PAIN LEVEL 7-10 Last administered on 01/17/17 21:43; Admin Dose 2 MG; Start 01/16/17 at 13:30 Lorazepam (Ativan) 1 mg Q2H PRN IV ANXIETY; Start 01/16/17 at 13:30 Docusate Sodium 100 mg 100 mg Q12H PRN PO CONSTIPATION; Start 01/16/17 at 13:30 Propofol (Diprivan) 100 ml @ 3.261 mls/ hr Q12H IV Last administered on 06:54; Admin Dose 19.566 MLS/HR; Start 01/16/17 at 13:30 Allopurinol (Zyloprim) 100 mg DAILY PO Last administered on 01/17/17 08:42; Admin Dose 100 MG; Start 01/17/17 at 09:00 Aspirin (Aspirin) 81 mg DAILY PO Last administered on 01/17/17 08:41; Admin Dose 81 MG; Start 01/17/17 at 09:00 Atorvastatin Calcium (Lipitor) 80 mg QHS PO Last administered on 01/17/17 20: 45; Admin Dose 80 MG; Start 01/16/17 at 21:00 Insulin Glargine (Lantus) 15 unit DAILY SC Last administered on 01/17/17 08:44 ; Admin Dose 15 UNIT; Start 01/17/17 at 09:00 Lisinopril (Zestril) 2.5 mg QAM PO ; Start 01/17/17 at 09:00 Spironolactone (Aldactone) 12.5 mg QAM PO Last administered on 01/17/17 08:40 ; Admin Dose 12.5 MG; Start 01/17/17 at 09:00 Clopidogrel Bisulfate 75 mg 75 mg DAILY PO Last administered on 01/17/17 08:41 ; Admin Dose 75 MG; Start 01/17/17 at 09:00 Ceftriaxone Sodium (Rocephin) 50 ml @ 100 mls/hr Q24H IVPB Last administered on 01/17/17 13:54; Admin Dose 100 MLS/HR; Start 01/16/17 at 14:00 Miscellaneous Information 1 ea NOTE XX ; Start 01/16/17 at 14:00 Glucose (Glutose) 15 gm Q15M PRN PO DECREASED GLUCOSE; Start 01/16/17 at 14:00 Glucose (Glutose) 22.5 gm Q15M PRN PO DECREASED GLUCOSE; Start 01/16/17 at 14: 00 Dextrose (D50w Syringe) 25 ml Q15M PRN IV DECREASED GLUCOSE; Start 01/16/17 at 14:00 Dextrose (D50w Syringe) 50 ml Q15M PRN IV DECREASED GLUCOSE; Start 01/16/17 at 14:00 Glucagon (Glucagen) 1 mg Q15M PRN IM DECREASED GLUCOSE; Start 01/16/17 at 14:00 Glucose (Glutose) 15 gm Q15M PRN BUCCAL DECREASED GLUCOSE; Start 01/16/17 at 14 :00 Insulin Aspart NOVOLOG *MILD* ALGORI... Q4 SC Last administered on 01/17/17 20 :52; Admin Dose 1 UNIT; Start 01/16/17 at 17:00 Epinephrine/ Sodium Chloride (EPINEPHrine/NS) 250 ml @ 3.75 mls/hr TITRATE IV Last administered on 01/17/17 20:51; Admin Dose 9.37 MLS/HR; Start 01/16/17 at 18:00 Acetylcysteine (Nac) 1,200 mg BID NGT Last administered on 01/17/17 20:46; Admin Dose 1,200 MG; Start 01/17/17 at 09:00; Stop 01/20/17 at 08:59 RAJESH VALDES Jan 18, 2017 09:43
--- NOTE | 2017-01-18 10:24 | RADRPT ---
PROCEDURE: XR Chest. CLINICAL INDICATION: Shortness of breath. TECHNIQUE: A single portable view of the chest was obtained. COMPARISON: 01/17/2017 FINDINGS: The endotracheal tube and nasogastric tube are unchanged. The aorta is tortuous and atherosclerotic . The cardiomediastinal silhouette is otherwise enlarged and is stable. Diffuse pulmonary vascular congestion is seen with likely underlying pulmonary edema and is stable. Bilateral pleural effusion s are again noted and are unchanged. The soft tissues and osseous structures demonstrate benign age related senescent changes. IMPRESSION: Radiographic findings of congestive heart failure again seen which is stable. RPTAT: HPNM Physician Simran Date Time Electronically viewed and signed by Physician Simran on 01/18/2017 10:24 /
[2017-01-18] MEDS: ASPIRIN 81 MG TAB PO SCH (11:10)
[2017-01-18] MEDS: FAMOTIDINE 20 MG INJ IV SCH (11:10)
[2017-01-18] MEDS: ALLOPURINOL 100 MG TAB PO SCH (11:10)
[2017-01-18] MEDS: ACETYLCYSTEINE 600 MG CAP NGT SCH ×2 (11:10→20:47)
[2017-01-18] MEDS: CLOPIDOGREL 75 MG TAB PO SCH (11:11)
[2017-01-18] MEDS: SPIRONOLACTONE 25 MG TAB PO SCH (11:11)
[2017-01-18] MEDS: INSULIN GLARGINE [LANtus] 3 ML PEN SC SCH (11:16)
[2017-01-18] MEDS: ENOXAPARIN 30 MG/0.3 ML SYG SC SCH (11:17)
[2017-01-18 12:13] LABS: AADO2 Arterial 57.5 mmHg (7.0-24.0); Allen Test ACCEPTAB; Arterial Base Excess -0.6 mmol/L (-3.0-3); Arterial COHb 0.5 % (0.0-3.0); Arterial Fraction of Oxyhgb 96.8 % (93.0-99.0); Arterial HCO3 24.3 mmol/L (22.0-26.0); Arterial MetHb 0.2 % (0.0-1.5); Arterial Total Hemglobin 13.5 g/dl (12.0-18.0); Blood Gas PS 10; MODE VENT - AC
--- NOTE | 2017-01-18 13:58 | CONS ---
Date/Time of Note Date/Time of Note DATE: 01/18/17 TIME: 13:56 Assessment/Plan Assessment/Plan Additional Assessment/Plan 1. CHF - acute on chronic - EF < 20%, con't diuresis - increased lasix BID now. BETTER NOW. 2. Symptomatic bradycardia: now with perm pacer - rate in 70s - much better - will monitor clinically now. 100% paced 3. Cardiomyopathy. The patient with significant cardiomyopathy, last EF by Dr. Kaba was 30%, now 10%, decreased. 4. Hypertension - Blood pressure now better controlled. No new episodes of cardiac arrest since pacer placed. 5. Coronary artery disease. The patient has history of coronary artery bypass graft per Dr. Kaba. He had a stress test in April of 2016, which showed no reversible ischemia. 6. resp failure - off vent, extub - good recall and mentation - will monitor now 7. ARF - renal team follows, will monitor closely- responded to diuresis Consultation Date/Type/Reason Admit Date/Time Jan 16, 2017 at 14:14 Initial Consult Date 01/16/17 Type of Consultation: Pulmonary/critical care 24 HR Interval Summary Free Text/Dictation Much better - extubated. Follows commands - better fluid status. ROS: No fever, no chills, no nausea, no vomiting, no diarrhea/constipation No recent weight changes No chest pain, no PND, no orthopnea No dizziness, blurred vision No thirst, no heat or cold intolerance (better now) Exam/Review of Systems Vital Signs Vitals Vital Signs Date Time Temp Pulse Resp B/P Pulse Ox O2 Delivery O2 Flow Rate FiO2 01/18/17 12:07 79 01/18/17 08:45 18 121/59 98 01/18/17 08:00 99.2 Mechanical Ventilator 01/18/17 05:00 35 01/16/17 09:04 15.0 Intake and Output 01/17/17 01/17/17 01/18/17 15:00 23:00 07:00 Intake Total 80 ml 703.98 ml 300.0 ml Output Total 570 ml 725 ml 325 ml Balance -490 ml -21.02 ml -25.0 ml Exam General: WN/WD/NAD, AOx 3 HEENT: Unicetric/atraumatic/EOMI (follow commands) NECK: JVD elevated, no thyromegaly Lymph: no lymphadenopathy HEART: regular with no S3, II/ systolic murmur at apex, pacer site looks well) LUNGS: Coarse sounds ABD: soft, NT, ND, +BS : Intact Neuro: non focal SKIN: chronic changes EXT: 2+ edema - better Results Result Diagram: 01/18/17 0420 01/18/17 0430 Results 24 hrs Laboratory Tests Test 01/17/17 17:42 01/17/17 20:38 01/18/17 01:09 01/18/17 04:20 Bedside Glucose 113 142 127 Basophils # 0.0 Basophils % 0.4 Eosinophils # 0.1 Eosinophils % 0.7 Hematocrit 34.1 L Hemoglobin 10.8 L Lymphocytes # 0.9 Lymphocytes % 9.5 L Mean Corpuscular Hemoglobin 28.5 L Mean Corpuscular Hemoglobin Concent 31.7 L Mean Corpuscular Volume 90.0 Mean Platelet Volume 12.3 H Monocytes # 1.1 H Monocytes % 10.9 Neutrophils # 7.6 H Neutrophils % 78.2 H Nucleated Red Blood Cells # 0.0 Nucleated Red Blood Cells % 0.0 Platelet Count 167 Red Blood Count 3.79 L Red Cell Distribution Width 17.0 H White Blood Count 9.8 Test 01/18/17 04:30 01/18/17 05:34 01/18/17 10:54 01/18/17 11:49 Anion Gap 15 Blood Urea Nitrogen 43 H Calcium Level 8.3 L Carbon Dioxide Level 26 Chloride Level 111 H Creatinine 2.40 H Glucose Level 129 Potassium Level 3.7 Sodium Level 148 H Bedside Glucose 124 121 Arterial Blood HCO3 24.3 Arterial Blood Base Excess -0.6 Arterial Blood Oxygen Saturation 97.5 Srikanth Test ACCEPTAB Arterial Blood Gas Puncture Site Right Radial Arterial Blood Carboxyhemoglobin 0.5 Arterial Blood Date Drawn 01/18/2017 12:00:06 PM Arterial Blood Methemoglobin 0.2 Arterial Blood pCO2 (Temp correct) 40.7 Arterial Blood pH (Temp corrected) 7.393 Arterial Blood pO2 (Temp corrected) 108.6 H Blood Gas A-a O2 Differential 57.5 H Blood Gas Actual Respiration Rate 20 Blood Gas Low PEEP Setting 5.0 Blood Gas Modality VENT - AC Blood Gas Notified Time 01/18/2017 12:12:53 PM Blood Gas Notified Whom RDIX Blood Gas Pressure Support 10 Blood Gas Specimen Source Blood arterial Blood Gas Temperature 37.0 Blood Gas Tidal Volume 362.0 FiO2 30.0 Oxyhemoglobin Percent 96.8 Total Hemoglobin 13.5 Test 01/18/17 13:21 Bedside Glucose 117 Medications Medications Current Medications Miscellaneous Information (* Miscellaneous Pharmacy Order) DC all Lovenox, Hepari... ONCE XX ; Start 01/16/17 at 12:00 Enoxaparin Sodium (Lovenox) 30 mg DAILY SC Last administered on 01/18/17 11:17 ; Admin Dose 30 MG; Start 01/17/17 at 09:00 Famotidine (Pepcid Iv) 20 mg DAILY IV Last administered on 01/18/17 11:10; Admin Dose 20 MG; Start 01/17/17 at 09:00 Ondansetron HCl (Zofran Inj) 4 mg Q6H PRN IV NAUSEA AND/OR VOMITING; Start at 13:30 Acetaminophen (Tylenol Liquid) 650 mg Q6H PRN PO PAIN LEVEL 1-3 OR FEVER; Start 01/16/17 at 13:30 Acetaminophen (Tylenol Tab) 650 mg Q6H PRN PO PAIN LEVEL 1-3 OR FEVER; Start at 13:30 Morphine Sulfate (morphine) 2 mg Q4H PRN IV PAIN LEVEL 7-10 Last administered on 01/17/17 21:43; Admin Dose 2 MG; Start 01/16/17 at 13:30 Lorazepam (Ativan) 1 mg Q2H PRN IV ANXIETY; Start 01/16/17 at 13:30 Docusate Sodium 100 mg 100 mg Q12H PRN PO CONSTIPATION; Start 01/16/17 at 13:30 Propofol (Diprivan) 100 ml @ 3.261 mls/ hr Q12H IV Last administered on 06:54; Admin Dose 19.566 MLS/HR; Start 01/16/17 at 13:30 Allopurinol (Zyloprim) 100 mg DAILY PO Last administered on 01/18/17 11:10; Admin Dose 100 MG; Start 01/17/17 at 09:00 Aspirin (Aspirin) 81 mg DAILY PO Last administered on 01/18/17 11:10; Admin Dose 81 MG; Start 01/17/17 at 09:00 Atorvastatin Calcium (Lipitor) 80 mg QHS PO Last administered on 01/17/17 20: 45; Admin Dose 80 MG; Start 01/16/17 at 21:00 Insulin Glargine (Lantus) 15 unit DAILY SC Last administered on 01/18/17 11:16 ; Admin Dose 15 UNIT; Start 01/17/17 at 09:00 Lisinopril (Zestril) 2.5 mg QAM PO ; Start 01/17/17 at 09:00 Spironolactone (Aldactone) 12.5 mg QAM PO Last administered on 01/18/17 11:11 ; Admin Dose 12.5 MG; Start 01/17/17 at 09:00 Clopidogrel Bisulfate 75 mg 75 mg DAILY PO Last administered on 01/18/17 11:11 ; Admin Dose 75 MG; Start 01/17/17 at 09:00 Ceftriaxone Sodium (Rocephin) 50 ml @ 100 mls/hr Q24H IVPB Last administered on 01/17/17 13:54; Admin Dose 100 MLS/HR; Start 01/16/17 at 14:00 Miscellaneous Information 1 ea NOTE XX ; Start 01/16/17 at 14:00 Glucose (Glutose) 15 gm Q15M PRN PO DECREASED GLUCOSE; Start 01/16/17 at 14:00 Glucose (Glutose) 22.5 gm Q15M PRN PO DECREASED GLUCOSE; Start 01/16/17 at 14: 00 Dextrose (D50w Syringe) 25 ml Q15M PRN IV DECREASED GLUCOSE; Start 01/16/17 at 14:00 Dextrose (D50w Syringe) 50 ml Q15M PRN IV DECREASED GLUCOSE; Start 01/16/17 at 14:00 Glucagon (Glucagen) 1 mg Q15M PRN IM DECREASED GLUCOSE; Start 01/16/17 at 14:00 Glucose (Glutose) 15 gm Q15M PRN BUCCAL DECREASED GLUCOSE; Start 01/16/17 at 14 :00 Insulin Aspart NOVOLOG *MILD* ALGORI... Q4 SC Last administered on 01/17/17 20 :52; Admin Dose 1 UNIT; Start 01/16/17 at 17:00 Epinephrine/ Sodium Chloride (EPINEPHrine/NS) 250 ml @ 3.75 mls/hr TITRATE IV Last administered on 01/17/17 20:51; Admin Dose 9.37 MLS/HR; Start 01/16/17 at 18:00 Acetylcysteine (Nac) 1,200 mg BID NGT Last administered on 01/18/17t 11:10; Admin Dose 1,200 MG; Start 01/17/17 at 09:00; Stop 01/20/17 at 08:59 BUD ALVAREZ MD Jan 18, 2017 13:58
[2017-01-18] MEDS: CEFTRIAXONE 1 GM/50 ML (PMX) 50 ML IVPB SCH (14:58)
[2017-01-18] MEDS: ATORVASTATIN 80 MG TAB PO SCH (20:48)
[2017-01-19] VITALS (24 sets, daily range): BP systolic 112–158; BP diastolic 56–110; PULSE 70–82; RESP 23–33
[2017-01-19] MEDS: INSULIN ASPART [NOVOLOG] 3 ML PEN SC SCH ×6 (01:00→21:00)
[2017-01-19 05:29] LABS: ADD SCAN DIFF NO
[2017-01-19 05:44] LABS: BASOPHIL # 0.1 10^3/ul (0.0-0.1); BASOPHILS % 0.6 % (0.0-2.0); EOSINOPHILS # 0.4 10^3/ul (0.0-0.5); EOSINOPHILS % 4.7 % (0.0-7.0); HEMATOCRIT 36.1 % (42.0-52.0); HEMOGLOBIN 11.4 g/dl (14.0-18.0); LYMPHOCYTES # 0.8 10^3/ul (0.8-2.9); LYMPHOCYTES % 8.9 % (15.0-51.0); MEAN CORPUSCULAR HEMOGLOBIN 28.4 pg (29.0-33.0); MEAN CORPUSCULAR HGB CONC 31.6 g/dl (32.0-37.0); MEAN CORPUSCULAR VOLUME 89.8 fl (82.0-101.0); MEAN PLATELET VOLUME 12.8 fl (7.4-10.4); MONOCYTE # 0.7 10^3/ul (0.3-0.9); MONOCYTES % 7.8 % (0.0-11.0); NEUTROPHIL # 6.8 10^3/ul (1.6-7.5); NEUTROPHILS % 77.8 % (39.0-77.0); PLATELET COUNT 158 10^3/UL (140-415); RED BLOOD COUNT 4.02 10^6/ul (4.70-6.10); RED CELL DISTRIBUTION WIDTH 16.8 % (11.5-14.5); WHITE BLOOD COUNT 8.7 10^3/ul (4.8-10.8)
[2017-01-19 05:57] LABS: ALBUMIN 2.7 g/dl (3.3-4.9)
[2017-01-19 05:58] LABS: POTASSIUM 3.8 mmol/L (3.5-5.1)
[2017-01-19 06:00] LABS: ALBUMIN/GLOBULIN RATIO 0.96; BILIRUBIN,INDIRECT 0.3 mg/dl (0-1.1); BILIRUBIN,TOTAL 0.3 mg/dl (0.2-1.3); CREATININE 1.64 mg/dl (0.61-1.24); TOTAL PROTEIN 5.5 g/dl (6.1-8.1)
[2017-01-19 06:01] LABS: CALCIUM 8.7 mg/dl (8.4-10.2)
[2017-01-19] MEDS: FUROSEMIDE 40 MG INJ IV SCH ×2 (06:02→18:32)
[2017-01-19] MEDS: ALLOPURINOL 100 MG TAB PO SCH (08:14)
[2017-01-19] MEDS: CLOPIDOGREL 75 MG TAB PO SCH (08:14)
[2017-01-19] MEDS: ACETYLCYSTEINE 600 MG CAP NGT SCH ×2 (08:14→21:16)
[2017-01-19] MEDS: ASPIRIN 81 MG TAB PO SCH (08:14)
[2017-01-19] MEDS: LISINOPRIL 5 MG TAB PO SCH (08:15)
[2017-01-19] MEDS: SPIRONOLACTONE 25 MG TAB PO SCH (08:15)
[2017-01-19] MEDS: ENOXAPARIN 30 MG/0.3 ML SYG SC SCH (08:26)
[2017-01-19] MEDS: FAMOTIDINE 20 MG INJ IV SCH (08:27)
[2017-01-19] MEDS: INSULIN GLARGINE [LANtus] 3 ML PEN SC SCH (08:32)
--- NOTE | 2017-01-19 10:44 | CONS ---
Date/Time of Note Date/Time of Note DATE: 01/19/17 TIME: 10:43 Assessment/Plan Assessment/Plan Additional Assessment/Plan Assessment and recommendations; next 1. Patient admitted with severe somatic bradycardia underwent P CPR leading to respiratory failure. Patient successfully treated yesterday with excellent overall clinical status. 2. History of prior coronary artery disease status post bypass surgery. 3. Renal insufficiency. Next 4. Diabetes. Continue current treatment. Patient can be transferred to telemetry unit. Discontinue Rocephin. Consultation Date/Type/Reason Admit Date/Time Jan 16, 2017 at 14:14 Initial Consult Date 01/16/17 Type of Consultation: Pulmonary/critical care 24 HR Interval Summary Free Text/Dictation Patient condition is markedly improved. He was successfully extubated yesterday morning. Has remained hemodynamically stable. Denies any shortness of breath, chest pain. Denies any nausea, vomiting. General examination; elderly male, currently in no distress. Awake and alert. Exam/Review of Systems Vital Signs Vitals Vital Signs Date Time Temp Pulse Resp B/P Pulse Ox O2 Delivery O2 Flow Rate FiO2 01/19/17 10:00 70 32 134/61 100 Nasal Cannula 01/19/17 08:00 98.7 01/19/17 07:00 2.0 01/18/17 09:20 30 Intake and Output 01/18/17 01/18/17 01/19/17 15:00 23:00 07:00 Intake Total 67.658 ml 150 ml Output Total 310 ml 2250 ml 720 ml Balance -242.342 ml -2100 ml -720 ml Exam HEENT examination; supple neck, no JVD. No lymphadenopathy. Pharynx is clear. Pupils are small bilaterally. No neck masses. No thyromegaly. Chest examination; clear to auscultation bilaterally. S1-S2 audible, no murmurs. There is a dressing applied over the left chest wall pacemaker. There is a well-healed sternal scar. Abdomen examination; soft, nondistended. Normal tender. Bowel sounds audible. No organomegaly. Extremity examination; no peripheral edema. CHOCOLATE CO[place] examination; no focal deficit. Results Result Diagram: 01/19/17 0515 01/19/17 0515 Results 24 hrs Laboratory Tests Test 01/18/17 10:54 01/18/17 11:49 01/18/17 13:21 01/18/17 18:12 Bedside Glucose 121 117 117 Arterial Blood HCO3 24.3 Arterial Blood Base Excess -0.6 Arterial Blood Oxygen Saturation 97.5 Srikanth Test ACCEPTAB Arterial Blood Gas Puncture Site Right Radial Arterial Blood Carboxyhemoglobin 0.5 Arterial Blood Date Drawn 01/18/2017 12:00:06 PM Arterial Blood Methemoglobin 0.2 Arterial Blood pCO2 (Temp correct) 40.7 Arterial Blood pH (Temp corrected) 7.393 Arterial Blood pO2 (Temp corrected) 108.6 H Blood Gas A-a O2 Differential 57.5 H Blood Gas Actual Respiration Rate 20 Blood Gas Low PEEP Setting 5.0 Blood Gas Modality VENT - AC Blood Gas Notified Time 01/18/2017 12:12:53 PM Blood Gas Notified Whom RDIX Blood Gas Pressure Support 10 Blood Gas Specimen Source Blood arterial Blood Gas Temperature 37.0 Blood Gas Tidal Volume 362.0 FiO2 30.0 Oxyhemoglobin Percent 96.8 Total Hemoglobin 13.5 Test 01/18/17 20:53 01/19/17 01:58 01/19/17 05:15 01/19/17 06:01 Bedside Glucose 105 104 99 Alanine Aminotransferase (ALT/SGPT) 30 Albumin 2.7 L Albumin/Globulin Ratio 0.96 Alkaline Phosphatase 69 Anion Gap 14 Aspartate Amino Transf (AST/SGOT) 24 Basophils # 0.1 Basophils % 0.6 Blood Urea Nitrogen 40 H Calcium Level 8.7 Carbon Dioxide Level 29 Chloride Level 109 Creatinine 1.64 H Direct Bilirubin 0.00 Eosinophils # 0.4 Eosinophils % 4.7 Globulin 2.80 Glucose Level 102 Hematocrit 36.1 L Hemoglobin 11.4 L Indirect Bilirubin 0.3 Lymphocytes # 0.8 Lymphocytes % 8.9 L Mean Corpuscular Hemoglobin 28.4 L Mean Corpuscular Hemoglobin Concent 31.6 L Mean Corpuscular Volume 89.8 Mean Platelet Volume 12.8 H Monocytes # 0.7 Monocytes % 7.8 Neutrophils # 6.8 Neutrophils % 77.8 H Nucleated Red Blood Cells # 0.0 Nucleated Red Blood Cells % 0.0 Platelet Count 158 Potassium Level 3.8 Red Blood Count 4.02 L Red Cell Distribution Width 16.8 H Sodium Level 148 H Total Bilirubin 0.3 Total Protein 5.5 L White Blood Count 8.7 Test 01/19/17 08:04 Bedside Glucose 96 Medications Medications Current Medications Miscellaneous Information (* Miscellaneous Pharmacy Order) DC all Lovenox, Hepari... ONCE XX ; Start 01/16/17 at 12:00 Enoxaparin Sodium (Lovenox) 30 mg DAILY SC Last administered on 01/19/17 08:26 ; Admin Dose 30 MG; Start 01/17/17 at 09:00 Famotidine (Pepcid Iv) 20 mg DAILY IV Last administered on 01/19/17 08:27; Admin Dose 20 MG; Start 01/17/17 at 09:00 Ondansetron HCl (Zofran Inj) 4 mg Q6H PRN IV NAUSEA AND/OR VOMITING; Start at 13:30 Acetaminophen (Tylenol Liquid) 650 mg Q6H PRN PO PAIN LEVEL 1-3 OR FEVER; Start 01/16/17 at 13:30 Acetaminophen (Tylenol Tab) 650 mg Q6H PRN PO PAIN LEVEL 1-3 OR FEVER; Start at 13:30 Morphine Sulfate (morphine) 2 mg Q4H PRN IV PAIN LEVEL 7-10 Last administered on 01/17/17 21:43; Admin Dose 2 MG; Start 01/16/17 at 13:30 Lorazepam (Ativan) 1 mg Q2H PRN IV ANXIETY; Start 01/16/17 at 13:30 Docusate Sodium (Colace) 100 mg Q12H PRN PO CONSTIPATION; Start 01/16/17 at 13: 30 Allopurinol (Zyloprim) 100 mg DAILY PO Last administered on 01/19/17 08:14; Admin Dose 100 MG; Start 01/17/17 at 09:00 Aspirin (Aspirin) 81 mg DAILY PO Last administered on 01/19/17 08:14; Admin Dose 81 MG; Start 01/17/17 at 09:00 Atorvastatin Calcium (Lipitor) 80 mg QHS PO Last administered on 01/18/17 20: 48; Admin Dose 80 MG; Start 01/16/17 at 21:00 Insulin Glargine (Lantus) 15 unit DAILY SC Last administered on 01/19/17 08:32 ; Admin Dose 15 UNIT; Start 01/17/17 at 09:00 Lisinopril (Zestril) 2.5 mg QAM PO Last administered on 01/19/17 08:15; Admin Dose 2.5 MG; Start 01/17/17 at 09:00 Spironolactone (Aldactone) 12.5 mg QAM PO Last administered on 01/19/17 08:15 ; Admin Dose 12.5 MG; Start 01/17/17 at 09:00 Clopidogrel Bisulfate 75 mg 75 mg DAILY PO Last administered on 01/19/17 08:14 ; Admin Dose 75 MG; Start 01/17/17 at 09:00 Ceftriaxone Sodium (Rocephin) 50 ml @ 100 mls/hr Q24H IVPB Last administered on 01/18/17 14:58; Admin Dose 100 MLS/HR; Start 01/16/17 at 14:00 Miscellaneous Information 1 ea NOTE XX ; Start 01/16/17 at 14:00 Glucose (Glutose) 15 gm Q15M PRN PO DECREASED GLUCOSE; Start 01/16/17 at 14:00 Glucose (Glutose) 22.5 gm Q15M PRN PO DECREASED GLUCOSE; Start 01/16/17 at 14: 00 Dextrose (D50w Syringe) 25 ml Q15M PRN IV DECREASED GLUCOSE; Start 01/16/17 at 14:00 Dextrose (D50w Syringe) 50 ml Q15M PRN IV DECREASED GLUCOSE; Start 01/16/17 at 14:00 Glucagon (Glucagen) 1 mg Q15M PRN IM DECREASED GLUCOSE; Start 01/16/17 at 14:00 Glucose (Glutose) 15 gm Q15M PRN BUCCAL DECREASED GLUCOSE; Start 01/16/17 at 14 :00 Insulin Aspart NOVOLOG *MILD* ALGORI... Q4 SC Last administered on 01/17/17 20 :52; Admin Dose 1 UNIT; Start 01/16/17 at 17:00 Epinephrine/ Sodium Chloride (EPINEPHrine/NS) 250 ml @ 3.75 mls/hr TITRATE IV Last administered on 01/17/17 20:51; Admin Dose 9.37 MLS/HR; Start 01/16/17 at 18:00 Acetylcysteine (Nac) 1,200 mg BID NGT Last administered on 01/19/17 08:14; Admin Dose 1,200 MG; Start 01/17/17 at 09:00; Stop 01/20/17 at 08:59 Carvedilol (Coreg) 6.25 mg BID GTB Last administered on 2/27/17at 08:15; Admin Dose 6.25 MG; Start 01/18/17 at 21:00 RAJESH VALDES Jan 19, 2017 10:44
--- NOTE | 2017-01-19 11:01 | CONS ---
Date/Time of Note Date/Time of Note DATE: 01/19/17 TIME: 10:59 Assessment/Plan Assessment/Plan Additional Assessment/Plan 1. CHF - acute on chronic - EF < 20%, con't diuresis - increased lasix BID now. BETTER NOW. Improved urine output. 2. Symptomatic bradycardia: now with perm pacer - rate in 70s - much better - will monitor clinically now. 100% paced - bleed at pacer site - pressure applied. 3. Cardiomyopathy. The patient with significant cardiomyopathy, last EF by Dr. Kaba was 30%, now 10%, decreased. Will diurese - hope will improve. 4. Hypertension - Blood pressure now better controlled. No new episodes of cardiac arrest since pacer placed. 5. Coronary artery disease. The patient has history of coronary artery bypass graft per Dr. Kaba. He had a stress test in April of 2016, which showed no reversible ischemia. 6. resp failure - off vent, extub - good recall and mentation - will monitor now MUCH better 7. ARF - renal team follows, will monitor closely- responded to diuresis Consultation Date/Type/Reason Admit Date/Time Jan 16, 2017 at 14:14 Initial Consult Date 01/16/17 Type of Consultation: Pulmonary/critical care 24 HR Interval Summary Free Text/Dictation Now much better - 100% paced - will monitor closely. Cr stable. ROS: No fever, no chills, no nausea, no vomiting, no diarrhea/constipation No recent weight changes No chest pain, no PND, no orthopnea No dizziness, blurred vision No thirst, no heat or cold intolerance Exam/Review of Systems Vital Signs Vitals Vital Signs Date Time Temp Pulse Resp B/P Pulse Ox O2 Delivery O2 Flow Rate FiO2 01/19/17 10:00 70 32 134/61 100 Nasal Cannula 01/19/17 08:00 98.7 01/19/17 07:00 2.0 01/18/17 09:20 30 Intake and Output 01/18/17 01/18/17 01/19/17 15:00 23:00 07:00 Intake Total 67.658 ml 150 ml Output Total 310 ml 2250 ml 720 ml Balance -242.342 ml -2100 ml -720 ml Exam General: WN/WD/NAD, AOx 3 HEENT: Unicetric/atraumatic/EOMI (follow commands) NECK: JVD elevated, no thyromegaly Lymph: no lymphadenopathy HEART: regular with no S3, II/ systolic murmur at apex, pacer in place LUNGS: Coarse sounds ABD: soft, NT, ND, +BS : Intact Neuro: non focal SKIN: chronic changes EXT: trace edema Results Result Diagram: 01/19/17 0515 01/19/17 0515 Results 24 hrs Laboratory Tests Test 01/18/17 11:49 01/18/17 13:21 01/18/17 18:12 01/18/17 20:53 Arterial Blood HCO3 24.3 Arterial Blood Base Excess -0.6 Arterial Blood Oxygen Saturation 97.5 Srikanth Test ACCEPTAB Arterial Blood Gas Puncture Site Right Radial Arterial Blood Carboxyhemoglobin 0.5 Arterial Blood Date Drawn 01/18/2017 12:00:06 PM Arterial Blood Methemoglobin 0.2 Arterial Blood pCO2 (Temp correct) 40.7 Arterial Blood pH (Temp corrected) 7.393 Arterial Blood pO2 (Temp corrected) 108.6 H Blood Gas A-a O2 Differential 57.5 H Blood Gas Actual Respiration Rate 20 Blood Gas Low PEEP Setting 5.0 Blood Gas Modality VENT - AC Blood Gas Notified Time 01/18/2017 12:12:53 PM Blood Gas Notified Whom RDIX Blood Gas Pressure Support 10 Blood Gas Specimen Source Blood arterial Blood Gas Temperature 37.0 Blood Gas Tidal Volume 362.0 FiO2 30.0 Oxyhemoglobin Percent 96.8 Total Hemoglobin 13.5 Bedside Glucose 117 117 105 Test 01/19/17 01:58 01/19/17 05:15 01/19/17 06:01 01/19/17 08:04 Bedside Glucose 104 99 96 Alanine Aminotransferase (ALT/SGPT) 30 Albumin 2.7 L Albumin/Globulin Ratio 0.96 Alkaline Phosphatase 69 Anion Gap 14 Aspartate Amino Transf (AST/SGOT) 24 Basophils # 0.1 Basophils % 0.6 Blood Urea Nitrogen 40 H Calcium Level 8.7 Carbon Dioxide Level 29 Chloride Level 109 Creatinine 1.64 H Direct Bilirubin 0.00 Eosinophils # 0.4 Eosinophils % 4.7 Globulin 2.80 Glucose Level 102 Hematocrit 36.1 L Hemoglobin 11.4 L Indirect Bilirubin 0.3 Lymphocytes # 0.8 Lymphocytes % 8.9 L Mean Corpuscular Hemoglobin 28.4 L Mean Corpuscular Hemoglobin Concent 31.6 L Mean Corpuscular Volume 89.8 Mean Platelet Volume 12.8 H Monocytes # 0.7 Monocytes % 7.8 Neutrophils # 6.8 Neutrophils % 77.8 H Nucleated Red Blood Cells # 0.0 Nucleated Red Blood Cells % 0.0 Platelet Count 158 Potassium Level 3.8 Red Blood Count 4.02 L Red Cell Distribution Width 16.8 H Sodium Level 148 H Total Bilirubin 0.3 Total Protein 5.5 L White Blood Count 8.7 Medications Medications Current Medications Miscellaneous Information (* Miscellaneous Pharmacy Order) DC all Lovenox, Hepari... ONCE XX ; Start 01/16/17 at 12:00 Enoxaparin Sodium (Lovenox) 30 mg DAILY SC Last administered on 01/19/17 08:26 ; Admin Dose 30 MG; Start 01/17/17 at 09:00 Famotidine (Pepcid Iv) 20 mg DAILY IV Last administered on 01/19/17 08:27; Admin Dose 20 MG; Start 01/17/17 at 09:00 Ondansetron HCl (Zofran Inj) 4 mg Q6H PRN IV NAUSEA AND/OR VOMITING; Start at 13:30 Acetaminophen (Tylenol Liquid) 650 mg Q6H PRN PO PAIN LEVEL 1-3 OR FEVER; Start 01/16/17 at 13:30 Acetaminophen (Tylenol Tab) 650 mg Q6H PRN PO PAIN LEVEL 1-3 OR FEVER; Start at 13:30 Morphine Sulfate (morphine) 2 mg Q4H PRN IV PAIN LEVEL 7-10 Last administered on 01/17/17 21:43; Admin Dose 2 MG; Start 01/16/17 at 13:30 Lorazepam (Ativan) 1 mg Q2H PRN IV ANXIETY; Start 01/16/17 at 13:30 Docusate Sodium (Colace) 100 mg Q12H PRN PO CONSTIPATION; Start 01/16/17 at 13: 30 Allopurinol (Zyloprim) 100 mg DAILY PO Last administered on 01/19/17 08:14; Admin Dose 100 MG; Start 01/17/17 at 09:00 Aspirin (Aspirin) 81 mg DAILY PO Last administered on 01/19/17 08:14; Admin Dose 81 MG; Start 01/17/17 at 09:00 Atorvastatin Calcium (Lipitor) 80 mg QHS PO Last administered on 01/18/17 20: 48; Admin Dose 80 MG; Start 01/16/17 at 21:00 Insulin Glargine (Lantus) 15 unit DAILY SC Last administered on 01/19/17 08:32 ; Admin Dose 15 UNIT; Start 01/17/17 at 09:00 Lisinopril (Zestril) 2.5 mg QAM PO Last administered on 01/19/17 08:15; Admin Dose 2.5 MG; Start 01/17/17 at 09:00 Spironolactone (Aldactone) 12.5 mg QAM PO Last administered on 01/19/17 08:15 ; Admin Dose 12.5 MG; Start 01/17/17 at 09:00 Clopidogrel Bisulfate (plaVIX) 75 mg DAILY PO Last administered on 01/19/17 08 :14; Admin Dose 75 MG; Start 01/17/17 at 09:00 Miscellaneous Information 1 ea NOTE XX ; Start 01/16/17 at 14:00 Glucose (Glutose) 15 gm Q15M PRN PO DECREASED GLUCOSE; Start 01/16/17 at 14:00 Glucose (Glutose) 22.5 gm Q15M PRN PO DECREASED GLUCOSE; Start 01/16/17 at 14: 00 Dextrose (D50w Syringe) 25 ml Q15M PRN IV DECREASED GLUCOSE; Start 01/16/17 at 14:00 Dextrose (D50w Syringe) 50 ml Q15M PRN IV DECREASED GLUCOSE; Start 01/16/17 at 14:00 Glucagon (Glucagen) 1 mg Q15M PRN IM DECREASED GLUCOSE; Start 01/16/17 at 14:00 Glucose (Glutose) 15 gm Q15M PRN BUCCAL DECREASED GLUCOSE; Start 01/16/17 at 14 :00 Insulin Aspart NOVOLOG *MILD* ALGORI... Q4 SC Last administered on 01/17/17 20 :52; Admin Dose 1 UNIT; Start 01/16/17 at 17:00 Epinephrine/ Sodium Chloride (EPINEPHrine/NS) 250 ml @ 3.75 mls/hr TITRATE IV Last administered on 01/17/17 20:51; Admin Dose 9.37 MLS/HR; Start 01/16/17 at 18:00 Acetylcysteine (Nac) 1,200 mg BID NGT Last administered on 01/19/17 08:14; Admin Dose 1,200 MG; Start 01/17/17 at 09:00; Stop 01/20/17 at 08:59 Carvedilol (Coreg) 6.25 mg BID GTB Last administered on 01/19/17 08:15; Admin Dose 6.25 MG; Start 01/18/17 at 21:00 BUD ALVAREZ MD Jan 19, 2017 11:01
--- NOTE | 2017-01-19 13:33 | PN ---
Date/Time of Note Date/Time of Note DATE: 01/19/17 TIME: 13:16 Assessment/Plan VTE Prophylaxis VTE Prophylaxis Intervention: LMWH Lines/Catheters IV Catheter Type (from Nrsg): VENOUS SHEATH Assessment/Plan Chief Complaint/Hosp Course (1) Bradycardia s/p placement of cardiac pacemaker -stable, DG to Tele (2) Ischemic dilated cardiomyopathy -cont Diuresis (3) Acute systolic CHF, NYHA class 4 -now off vent, cont Lasix IV (4) Diabetes mellitus type 2 in obese -cont Insulin (5) Obesity (BMI 30-39.9) (6) Acute kidney injury superimposed on chronic kidney disease -stable PPx- Lovenox Problems: Subjective 24 Hr Interval Summary ENT: sore throat Exam/Review of Systems Vital Signs Vitals Vital Signs Date Time Temp Pulse Resp B/P Pulse Ox O2 Delivery O2 Flow Rate FiO2 01/19/17 13:00 80 26 131/62 98 Nasal Cannula 01/19/17 12:00 98.8 01/19/17 08:05 2.0 01/18/17 09:20 30 Intake and Output 01/18/17 01/18/17 01/19/17 15:00 23:00 07:00 Intake Total 67.658 ml 150 ml Output Total 310 ml 2250 ml 940 ml Balance -242.342 ml -2100 ml -940 ml Exam Constitutional: alert, oriented Respiratory: clear to auscultation Cardiovascular: regular rate and rhythm Gastrointestinal: soft, No distended Musculoskeletal: nl extremities to inspection Results Result Diagram: 01/19/17 0515 01/19/17 0515 Results 24 hrs Laboratory Tests Test 01/18/17 13:21 01/18/17 18:12 01/18/17 20:53 01/19/17 01:58 Bedside Glucose 117 117 105 104 Test 01/19/17 05:15 01/19/17 06:01 01/19/17 08:04 01/19/17 12:39 Alanine Aminotransferase (ALT/SGPT) 30 Albumin 2.7 L Albumin/Globulin Ratio 0.96 Alkaline Phosphatase 69 Anion Gap 14 Aspartate Amino Transf (AST/SGOT) 24 Basophils # 0.1 Basophils % 0.6 Blood Urea Nitrogen 40 H Calcium Level 8.7 Carbon Dioxide Level 29 Chloride Level 109 Creatinine 1.64 H Direct Bilirubin 0.00 Eosinophils # 0.4 Eosinophils % 4.7 Globulin 2.80 Glucose Level 102 Hematocrit 36.1 L Hemoglobin 11.4 L Indirect Bilirubin 0.3 Lymphocytes # 0.8 Lymphocytes % 8.9 L Mean Corpuscular Hemoglobin 28.4 L Mean Corpuscular Hemoglobin Concent 31.6 L Mean Corpuscular Volume 89.8 Mean Platelet Volume 12.8 H Monocytes # 0.7 Monocytes % 7.8 Neutrophils # 6.8 Neutrophils % 77.8 H Nucleated Red Blood Cells # 0.0 Nucleated Red Blood Cells % 0.0 Platelet Count 158 Potassium Level 3.8 Red Blood Count 4.02 L Red Cell Distribution Width 16.8 H Sodium Level 148 H Total Bilirubin 0.3 Total Protein 5.5 L White Blood Count 8.7 Bedside Glucose 99 96 120 Medications Medications Current Medications Miscellaneous Information (* Miscellaneous Pharmacy Order) DC all Lovenox, Hepari... ONCE XX ; Start 01/16/17 at 12:00 Enoxaparin Sodium (Lovenox) 30 mg DAILY SC Last administered on 01/19/17 08:26 ; Admin Dose 30 MG; Start 01/17/17 at 09:00 Famotidine (Pepcid Iv) 20 mg DAILY IV Last administered on 01/19/17 08:27; Admin Dose 20 MG; Start 01/17/17 at 09:00 Ondansetron HCl (Zofran Inj) 4 mg Q6H PRN IV NAUSEA AND/OR VOMITING; Start at 13:30 Acetaminophen (Tylenol Liquid) 650 mg Q6H PRN PO PAIN LEVEL 1-3 OR FEVER; Start 01/16/17 at 13:30 Acetaminophen (Tylenol Tab) 650 mg Q6H PRN PO PAIN LEVEL 1-3 OR FEVER; Start at 13:30 Morphine Sulfate (morphine) 2 mg Q4H PRN IV PAIN LEVEL 7-10 Last administered on 01/17/17 21:43; Admin Dose 2 MG; Start 01/16/17 at 13:30 Lorazepam (Ativan) 1 mg Q2H PRN IV ANXIETY; Start 01/16/17 at 13:30 Docusate Sodium (Colace) 100 mg Q12H PRN PO CONSTIPATION; Start 01/16/17 at 13: 30 Allopurinol (Zyloprim) 100 mg DAILY PO Last administered on 01/19/17 08:14; Admin Dose 100 MG; Start 01/17/17 at 09:00 Aspirin (Aspirin) 81 mg DAILY PO Last administered on 01/19/17 08:14; Admin Dose 81 MG; Start 01/17/17 at 09:00 Atorvastatin Calcium (Lipitor) 80 mg QHS PO Last administered on 01/18/17 20: 48; Admin Dose 80 MG; Start 01/16/17 at 21:00 Insulin Glargine (Lantus) 15 unit DAILY SC Last administered on 01/19/17 08:32 ; Admin Dose 15 UNIT; Start 01/17/17 at 09:00 Lisinopril (Zestril) 2.5 mg QAM PO Last administered on 01/19/17 08:15; Admin Dose 2.5 MG; Start 01/17/17 at 09:00 Spironolactone (Aldactone) 12.5 mg QAM PO Last administered on 01/19/17 08:15 ; Admin Dose 12.5 MG; Start 01/17/17 at 09:00 Clopidogrel Bisulfate (plaVIX) 75 mg DAILY PO Last administered on 01/19/17 08 :14; Admin Dose 75 MG; Start 01/17/17 at 09:00 Miscellaneous Information 1 ea NOTE XX ; Start 01/16/17 at 14:00 Glucose (Glutose) 15 gm Q15M PRN PO DECREASED GLUCOSE; Start 01/16/17 at 14:00 Glucose (Glutose) 22.5 gm Q15M PRN PO DECREASED GLUCOSE; Start 01/16/17 at 14: 00 Dextrose (D50w Syringe) 25 ml Q15M PRN IV DECREASED GLUCOSE; Start 01/16/17 at 14:00 Dextrose (D50w Syringe) 50 ml Q15M PRN IV DECREASED GLUCOSE; Start 01/16/17 at 14:00 Glucagon (Glucagen) 1 mg Q15M PRN IM DECREASED GLUCOSE; Start 01/16/17 at 14:00 Glucose (Glutose) 15 gm Q15M PRN BUCCAL DECREASED GLUCOSE; Start 01/16/17 at 14 :00 Insulin Aspart NOVOLOG *MILD* ALGORI... Q4 SC Last administered on 01/17/17 20 :52; Admin Dose 1 UNIT; Start 01/16/17 at 17:00 Epinephrine/ Sodium Chloride (EPINEPHrine/NS) 250 ml @ 3.75 mls/hr TITRATE IV Last administered on 01/17/17 20:51; Admin Dose 9.37 MLS/HR; Start 01/16/17 at 18:00 Acetylcysteine (Nac) 1,200 mg BID NGT Last administered on 01/19/17 08:14; Admin Dose 1,200 MG; Start 01/17/17 at 09:00; Stop 01/20/17 at 08:59 Carvedilol (Coreg) 6.25 mg BID GTB Last administered on 01/19/17 08:15; Admin Dose 6.25 MG; Start 01/18/17 at 21:00 KHANH GANT Jan 19, 2017 13:33
[2017-01-19] MEDS: ATORVASTATIN 80 MG TAB PO SCH (21:17)
[2017-01-20] VITALS (14 sets, daily range): BP systolic 101–139; BP diastolic 48–69; PULSE 68–76; RESP 18–69
[2017-01-20] MEDS: ACCUCHECK XX SCH (02:00)
[2017-01-20] MEDS: FUROSEMIDE 40 MG INJ IV SCH ×2 (06:36→17:46)
[2017-01-20 07:05] LABS: ADD SCAN DIFF NO
[2017-01-20 07:12] LABS: BASOPHILS % 0.5 % (0.0-2.0); EOSINOPHILS # 0.6 10^3/ul (0.0-0.5); EOSINOPHILS % 7.8 % (0.0-7.0); HEMATOCRIT 37.5 % (42.0-52.0); HEMOGLOBIN 11.9 g/dl (14.0-18.0); LYMPHOCYTES % 12.8 % (15.0-51.0); MEAN CORPUSCULAR HEMOGLOBIN 28.2 pg (29.0-33.0); MEAN CORPUSCULAR HGB CONC 31.7 g/dl (32.0-37.0); MEAN CORPUSCULAR VOLUME 88.9 fl (82.0-101.0); MEAN PLATELET VOLUME 12.4 fl (7.4-10.4); MONOCYTE # 0.7 10^3/ul (0.3-0.9); MONOCYTES % 9.1 % (0.0-11.0); NEUTROPHIL # 5.5 10^3/ul (1.6-7.5); NEUTROPHILS % 69.5 % (39.0-77.0); PLATELET COUNT 172 10^3/UL (140-415); RED BLOOD COUNT 4.22 10^6/ul (4.70-6.10); RED CELL DISTRIBUTION WIDTH 16.5 % (11.5-14.5); WHITE BLOOD COUNT 7.9 10^3/ul (4.8-10.8)
[2017-01-20 07:17] LABS: POTASSIUM 3.5 mmol/L (3.5-5.1)
[2017-01-20 07:20] LABS: CREATININE 1.36 mg/dl (0.61-1.24)
[2017-01-20 07:21] LABS: CALCIUM 8.8 mg/dl (8.4-10.2)
[2017-01-20] MEDS: ASPIRIN 81 MG TAB PO SCH (08:36)
[2017-01-20] MEDS: LISINOPRIL 5 MG TAB PO SCH (08:36)
[2017-01-20] MEDS: CLOPIDOGREL 75 MG TAB PO SCH (08:37)
[2017-01-20] MEDS: SPIRONOLACTONE 25 MG TAB PO SCH (08:37)
[2017-01-20] MEDS: ALLOPURINOL 100 MG TAB PO SCH (08:37)
[2017-01-20] MEDS: FAMOTIDINE 20 MG INJ IV SCH (08:37)
[2017-01-20] MEDS: ENOXAPARIN 30 MG/0.3 ML SYG SC SCH (08:44)
[2017-01-20] MEDS: INSULIN GLARGINE [LANtus] 3 ML PEN SC SCH ×2 (09:00→09:40)
[2017-01-20] MEDS: INSULIN ASPART [NOVOLOG] 3 ML PEN SC SCH ×5 (09:02→21:00)
[2017-01-20] MEDS: IPRATROPIUM (NEB) 0.5 MG/2.5 ML AMP NEB PRN (12:09)
[2017-01-20] MEDS: ALBUTEROL 0.5% (NEB) 2.5 MG/0.5 ML AMP NEB PRN (12:09)
--- NOTE | 2017-01-20 14:43 | CONS ---
Date/Time of Note Date/Time of Note DATE: 01/20/17 TIME: 14:41 Assessment/Plan Assessment/Plan Additional Assessment/Plan 1. CHF - acute on chronic - EF < 20%, con't diuresis - increased lasix BID now. BETTER NOW. Improved urine output. MUCH IMPROVED. 2. Symptomatic bradycardia: now with perm pacer - rate in 70s - much better - will monitor clinically now. 100% paced - bleed at pacer site - pressure applied. Bleeding stopped now. 3. Cardiomyopathy. The patient with significant cardiomyopathy, last EF by Dr. Kaba was 30%, now 10%, decreased. Will diurese - hope will improve. 4. Hypertension - Blood pressure now better controlled. No new episodes of cardiac arrest since pacer placed. 5. Coronary artery disease. The patient has history of coronary artery bypass graft per Dr. Kaba. He had a stress test in April of 2016, which showed no reversible ischemia. 6. resp failure - off vent, extub - good recall and mentation - will monitor now MUCH better 7. ARF - renal team follows, will monitor closely- responded to diuresis - good urine output now. Consultation Date/Type/Reason Admit Date/Time Jan 16, 2017 at 14:14 Initial Consult Date 01/16/17 Type of Consultation: Pulmonary/critical care 24 HR Interval Summary Free Text/Dictation No acute change - BP stable - No Cp - doubt ischemia. ROS: No fever, no chills, no nausea, no vomiting, no diarrhea/constipation No recent weight changes No chest pain, no PND, no orthopnea No dizziness, blurred vision No thirst, no heat or cold intolerance Exam/Review of Systems Vital Signs Vitals Vital Signs Date Time Temp Pulse Resp B/P Pulse Ox O2 Delivery O2 Flow Rate FiO2 01/20/17 12:11 96 2.0 01/20/17 12:11 64 26 Nasal Cannula 01/20/17 11:27 98.0 139/69 01/18/17 09:20 30 Intake and Output 01/19/17 01/19/17 01/20/17 15:00 23:00 07:00 Intake Total 420 ml 150 ml 80 ml Output Total 985 ml 735 ml 445 ml Balance -565 ml -585 ml -365 ml Exam General: WN/WD/NAD, AOx 3 HEENT: Unicetric/atraumatic/EOMI (follow commands) NECK: JVD elevated, no thyromegaly Lymph: no lymphadenopathy HEART: regular with no S3, II/ systolic murmur at apex, PMI left , pacer site clean LUNGS: Coarse sounds ABD: soft, NT, ND, +BS : Intact Neuro: non focal SKIN: chronic changes EXT: 2+ edema Results Result Diagram: 01/20/17 0630 01/20/17 0630 Results 24 hrs Laboratory Tests Test 01/19/17 17:11 01/19/17 21:15 01/20/17 06:30 01/20/17 08:35 Bedside Glucose 175 140 141 Anion Gap 15 Basophils # 0.0 Basophils % 0.5 Blood Urea Nitrogen 36 H Calcium Level 8.8 Carbon Dioxide Level 29 Chloride Level 105 Creatinine 1.36 H Eosinophils # 0.6 H Eosinophils % 7.8 H Glucose Level 129 Hematocrit 37.5 L Hemoglobin 11.9 L Lymphocytes # 1.0 Lymphocytes % 12.8 L Magnesium Level 2.0 Mean Corpuscular Hemoglobin 28.2 L Mean Corpuscular Hemoglobin Concent 31.7 L Mean Corpuscular Volume 88.9 Mean Platelet Volume 12.4 H Monocytes # 0.7 Monocytes % 9.1 Neutrophils # 5.5 Neutrophils % 69.5 Nucleated Red Blood Cells # 0.0 Nucleated Red Blood Cells % 0.0 Platelet Count 172 Potassium Level 3.5 Red Blood Count 4.22 L Red Cell Distribution Width 16.5 H Sodium Level 145 H White Blood Count 7.9 Test 01/20/17 11:33 Bedside Glucose 176 Medications Medications Current Medications Enoxaparin Sodium (Lovenox) 30 mg DAILY SC Last administered on 01/20/17 08:44 ; Admin Dose 30 MG; Start 01/17/17 at 09:00 Famotidine (Pepcid Iv) 20 mg DAILY IV Last administered on 01/20/17 08:37; Admin Dose 20 MG; Start 01/17/17 at 09:00 Ondansetron HCl (Zofran Inj) 4 mg Q6H PRN IV NAUSEA AND/OR VOMITING; Start at 13:30 Acetaminophen (Tylenol Liquid) 650 mg Q6H PRN PO PAIN LEVEL 1-3 OR FEVER; Start 01/16/17 at 13:30 Acetaminophen (Tylenol Tab) 650 mg Q6H PRN PO PAIN LEVEL 1-3 OR FEVER; Start at 13:30 Morphine Sulfate (morphine) 2 mg Q4H PRN IV PAIN LEVEL 7-10 Last administered on 01/17/17 21:43; Admin Dose 2 MG; Start 01/16/17 at 13:30 Lorazepam (Ativan) 1 mg Q2H PRN IV ANXIETY; Start 01/16/17 at 13:30 Docusate Sodium (Colace) 100 mg Q12H PRN PO CONSTIPATION; Start 01/16/17 at 13: 30 Allopurinol (Zyloprim) 100 mg DAILY PO Last administered on 01/20/17 08:37; Admin Dose 100 MG; Start 01/17/17 at 09:00 Aspirin (Aspirin) 81 mg DAILY PO Last administered on 01/20/17 08:36; Admin Dose 81 MG; Start 01/17/17 at 09:00 Atorvastatin Calcium (Lipitor) 80 mg QHS PO Last administered on 01/19/17 21: 17; Admin Dose 80 MG; Start 01/16/17 at 21:00 Insulin Glargine (Lantus) 15 unit DAILY SC Last administered on 01/20/17 09:40 ; Admin Dose 15 UNIT; Start 01/17/17 at 09:00 Lisinopril (Zestril) 2.5 mg QAM PO Last administered on 01/20/17 08:36; Admin Dose 2.5 MG; Start 01/17/17 at 09:00 Spironolactone (Aldactone) 12.5 mg QAM PO Last administered on 01/20/17 08:37 ; Admin Dose 12.5 MG; Start 01/17/17 at 09:00 Clopidogrel Bisulfate (plaVIX) 75 mg DAILY PO Last administered on 01/20/17 08 :37; Admin Dose 75 MG; Start 01/17/17 at 09:00 Miscellaneous Information 1 ea NOTE XX ; Start 01/16/17 at 14:00 Glucose (Glutose) 15 gm Q15M PRN PO DECREASED GLUCOSE; Start 01/16/17 at 14:00 Glucose (Glutose) 22.5 gm Q15M PRN PO DECREASED GLUCOSE; Start 01/16/17 at 14: 00 Dextrose (D50w Syringe) 25 ml Q15M PRN IV DECREASED GLUCOSE; Start 01/16/17 at 14:00 Dextrose (D50w Syringe) 50 ml Q15M PRN IV DECREASED GLUCOSE; Start 01/16/17 at 14:00 Glucagon (Glucagen) 1 mg Q15M PRN IM DECREASED GLUCOSE; Start 01/16/17 at 14:00 Glucose 15 gm 15 gm Q15M PRN BUCCAL DECREASED GLUCOSE; Start 01/16/17 at 14:00 Epinephrine/ Sodium Chloride (EPINEPHrine/NS) 250 ml @ 3.75 mls/hr TITRATE IV Last administered on 01/17/17 20:51; Admin Dose 9.37 MLS/HR; Start 01/16/17 at 18:00 Carvedilol (Coreg) 6.25 mg BID GTB Last administered on 01/20/17 08:37; Admin Dose 6.25 MG; Start 01/18/17 at 21:00 Diagnostic Test (Pha) (Accucheck) 1 ea 02 XX ; Start 01/20/17 at 02:00 BUD ALVAREZ MD Jan 20, 2017 14:43
--- NOTE | 2017-01-20 14:50 | PN ---
Date/Time of Note Date/Time of Note DATE: 01/20/17 TIME: 14:44 Assessment/Plan VTE Prophylaxis VTE Prophylaxis Intervention: LMWH Lines/Catheters IV Catheter Type (from Nrs): Saline Lock Assessment/Plan Chief Complaint/Hosp Course 1. Bradycardia s/p placement of cardiac pacemaker -stable, DG to Tele 2. Ischemic dilated cardiomyopathy -cont Diuresis 3. Acute systolic CHF, NYHA class 4 -now off vent, cont Lasix IV 4. Diabetes mellitus type 2 in obese -cont Insulin 5. Obesity (BMI 30-39.9) 6. Acute kidney injury superimposed on chronic kidney disease -stable 7. Hx of Cardiac Arrest- now stable 8. Debility -PT eval PPx- Lovenox Problems: Subjective 24 Hr Interval Summary Constitutional: no complaints Exam/Review of Systems Vital Signs Vitals Vital Signs Date Time Temp Pulse Resp B/P Pulse Ox O2 Delivery O2 Flow Rate FiO2 01/20/17 12:11 96 2.0 01/20/17 12:11 64 26 Nasal Cannula 01/20/17 11:27 98.0 139/69 01/18/17 09:20 30 Intake and Output 01/19/17 01/19/17 01/20/17 15:00 23:00 07:00 Intake Total 420 ml 150 ml 80 ml Output Total 985 ml 735 ml 445 ml Balance -565 ml -585 ml -365 ml Exam Constitutional: alert, oriented Respiratory: clear to auscultation Cardiovascular: regular rate and rhythm Gastrointestinal: soft, No distended Musculoskeletal: nl extremities to inspection Results Result Diagram: 01/20/17 0630 01/20/17 0630 Results 24 hrs Laboratory Tests Test 01/19/17 17:11 01/19/17 21:15 01/20/17 06:30 01/20/17 08:35 Bedside Glucose 175 140 141 Anion Gap 15 Basophils # 0.0 Basophils % 0.5 Blood Urea Nitrogen 36 H Calcium Level 8.8 Carbon Dioxide Level 29 Chloride Level 105 Creatinine 1.36 H Eosinophils # 0.6 H Eosinophils % 7.8 H Glucose Level 129 Hematocrit 37.5 L Hemoglobin 11.9 L Lymphocytes # 1.0 Lymphocytes % 12.8 L Magnesium Level 2.0 Mean Corpuscular Hemoglobin 28.2 L Mean Corpuscular Hemoglobin Concent 31.7 L Mean Corpuscular Volume 88.9 Mean Platelet Volume 12.4 H Monocytes # 0.7 Monocytes % 9.1 Neutrophils # 5.5 Neutrophils % 69.5 Nucleated Red Blood Cells # 0.0 Nucleated Red Blood Cells % 0.0 Platelet Count 172 Potassium Level 3.5 Red Blood Count 4.22 L Red Cell Distribution Width 16.5 H Sodium Level 145 H White Blood Count 7.9 Test 01/20/17 11:33 Bedside Glucose 176 Medications Medications Current Medications Enoxaparin Sodium (Lovenox) 30 mg DAILY SC Last administered on 01/20/17 08:44 ; Admin Dose 30 MG; Start 01/17/17 at 09:00 Famotidine (Pepcid Iv) 20 mg DAILY IV Last administered on 01/20/17 08:37; Admin Dose 20 MG; Start 01/17/17 at 09:00 Ondansetron HCl (Zofran Inj) 4 mg Q6H PRN IV NAUSEA AND/OR VOMITING; Start at 13:30 Acetaminophen (Tylenol Liquid) 650 mg Q6H PRN PO PAIN LEVEL 1-3 OR FEVER; Start 01/16/17 at 13:30 Acetaminophen (Tylenol Tab) 650 mg Q6H PRN PO PAIN LEVEL 1-3 OR FEVER; Start at 13:30 Morphine Sulfate (morphine) 2 mg Q4H PRN IV PAIN LEVEL 7-10 Last administered on 01/17/17 21:43; Admin Dose 2 MG; Start 01/16/17 at 13:30 Lorazepam (Ativan) 1 mg Q2H PRN IV ANXIETY; Start 01/16/17 at 13:30 Docusate Sodium (Colace) 100 mg Q12H PRN PO CONSTIPATION; Start 01/16/17 at 13: 30 Allopurinol (Zyloprim) 100 mg DAILY PO Last administered on 01/20/17 08:37; Admin Dose 100 MG; Start 01/17/17 at 09:00 Aspirin (Aspirin) 81 mg DAILY PO Last administered on 01/20/17 08:36; Admin Dose 81 MG; Start 01/17/17 at 09:00 Atorvastatin Calcium (Lipitor) 80 mg QHS PO Last administered on 01/19/17 21: 17; Admin Dose 80 MG; Start 01/16/17 at 21:00 Insulin Glargine (Lantus) 15 unit DAILY SC Last administered on 01/20/17 09:40 ; Admin Dose 15 UNIT; Start 01/17/17 at 09:00 Lisinopril (Zestril) 2.5 mg QAM PO Last administered on 01/20/17 08:36; Admin Dose 2.5 MG; Start 01/17/17 at 09:00 Spironolactone (Aldactone) 12.5 mg QAM PO Last administered on 01/20/17 08:37 ; Admin Dose 12.5 MG; Start 01/17/17 at 09:00 Clopidogrel Bisulfate (plaVIX) 75 mg DAILY PO Last administered on 01/20/17 08 :37; Admin Dose 75 MG; Start 01/17/17 at 09:00 Miscellaneous Information 1 ea NOTE XX ; Start 01/16/17 at 14:00 Glucose (Glutose) 15 gm Q15M PRN PO DECREASED GLUCOSE; Start 01/16/17 at 14:00 Glucose (Glutose) 22.5 gm Q15M PRN PO DECREASED GLUCOSE; Start 01/16/17 at 14: 00 Dextrose (D50w Syringe) 25 ml Q15M PRN IV DECREASED GLUCOSE; Start 01/16/17 at 14:00 Dextrose (D50w Syringe) 50 ml Q15M PRN IV DECREASED GLUCOSE; Start 01/16/17 at 14:00 Glucagon (Glucagen) 1 mg Q15M PRN IM DECREASED GLUCOSE; Start 01/16/17 at 14:00 Glucose 15 gm 15 gm Q15M PRN BUCCAL DECREASED GLUCOSE; Start 01/16/17 at 14:00 Epinephrine/ Sodium Chloride (EPINEPHrine/NS) 250 ml @ 3.75 mls/hr TITRATE IV Last administered on 01/17/17 20:51; Admin Dose 9.37 MLS/HR; Start 01/16/17 at 18:00 Carvedilol (Coreg) 6.25 mg BID GTB Last administered on 01/20/17 08:37; Admin Dose 6.25 MG; Start 01/18/17 at 21:00 Diagnostic Test (Pha) (Accucheck) 1 ea 02 XX ; Start 01/20/17 at 02:00 KHANH GANT Jan 20, 2017 14:50
--- NOTE | 2017-01-20 17:52 | RADRPT ---
Vent Rate: 0 bpm RR Interval: 0 msec AR Interval: 0 msec QRS Duration: 0 msec QT Interval: 0 msec QTC Interval: 0 msec P-R-T [place]: 0 - 0 - 0 degrees Electronically Signed By: Edi Farias [id number]
[2017-01-20] MEDS: ATORVASTATIN 80 MG TAB PO SCH (21:52)
[2017-01-21] VITALS (11 sets, daily range): BP systolic 108–138; BP diastolic 59–69; PULSE 69; RESP 16–19
[2017-01-21] MEDS: GUAIFENESIN/CODEINE 5ML CUP PO PRN ×3 (00:16→23:02)
[2017-01-21] MEDS: ACCUCHECK XX SCH (02:00)
[2017-01-21] MEDS: FUROSEMIDE 40 MG INJ IV SCH ×2 (05:08→17:49)
[2017-01-21] MEDS: INSULIN ASPART [NOVOLOG] 3 ML PEN SC SCH ×4 (07:54→21:00)
[2017-01-21 07:56] LABS: POTASSIUM 3.4 mmol/L (3.5-5.1)
[2017-01-21 07:58] LABS: CREATININE 1.37 mg/dl (0.61-1.24)
[2017-01-21 07:59] LABS: CALCIUM 8.6 mg/dl (8.4-10.2)
--- NOTE | 2017-01-21 08:38 | RADRPT ---
Vent Rate: 70 bpm RR Interval: 0 msec LA Interval: 80 msec QRS Duration: 156 msec QT Interval: 488 msec QTC Interval: 527 msec P-R-T [place]: 0 - -78 - 111 degrees V pacing Abnormal ECG Electronically Signed By: Edi Farias [id number]
[2017-01-21] MEDS: CLOPIDOGREL 75 MG TAB PO SCH (08:59)
[2017-01-21] MEDS: ASPIRIN 81 MG TAB PO SCH (08:59)
[2017-01-21] MEDS: FAMOTIDINE 20 MG TAB PO SCH (09:00)
[2017-01-21] MEDS: LISINOPRIL 5 MG TAB PO SCH (09:00)
[2017-01-21] MEDS: ALLOPURINOL 100 MG TAB PO SCH (09:00)
[2017-01-21] MEDS: SPIRONOLACTONE 25 MG TAB PO SCH (09:00)
[2017-01-21] MEDS: INSULIN GLARGINE [LANtus] 3 ML PEN SC SCH (09:00)
[2017-01-21] MEDS: ENOXAPARIN 30 MG/0.3 ML SYG SC SCH (09:08)
[2017-01-21] MEDS ORDERED: POTASSIUM CHLORIDE (SR) 20 MEQ TAB PO STA (10:05)
--- NOTE | 2017-01-21 12:33 | CONS ---
Date/Time of Note Date/Time of Note DATE: 01/21/17 TIME: 12:25 Assessment/Plan Assessment/Plan Chief Complaint/Hosp Course Imp: 1.CHF-systolic acute on chronic 2.Cardiomyopathy-EF 10% by echo this admit 3.Symptomatic bradycardia s/p PPM implant 4.HTN 5.ARF 6.cad Recc: -Tele -serial ecg's -Continue coreg/ACEI -Continue asa/plavix -Continue lasix and follow volume status closely Problems: Consultation Date/Type/Reason Admit Date/Time Jan 16, 2017 at 14:14 Initial Consult Date 01/16/17 Type of Consultation: Cardiology Reason for Consultation Cardiomyopathy Referring Provider: KHANH GANT Exam/Review of Systems Vital Signs Vitals Vital Signs Date Time Temp Pulse Resp B/P Pulse Ox O2 Delivery O2 Flow Rate FiO2 01/21/17 12:07 69 01/21/17 11:20 98.2 19 108/59 97 01/20/17 23:36 2.0 01/20/17 21:45 Nasal Cannula 01/18/17 09:20 30 Intake and Output 01/20/17 01/20/17 01/21/17 15:00 23:00 07:00 Intake Total 750 ml 500 ml Output Total 1300 ml 1000 ml Balance -550 ml -500 ml Exam Review of Systems: CONSTITUTIONAL: No fevers, chills. PULMONARY: No sob CARDIOVASCULAR: No chest pain/palpitations GASTROINTESTINAL: No nausea/vomiting. GENITOURINARY: No hematuria/dysuria. MUSCULOSKELETAL: No myagias/arthalgias. PSYCHIATRIC: The patient denies depression. NEUROLOGIC: No weakness Constitutional: alert, oriented Psych: no complaints Head: normocephalic ENMT: mucosa pink and moist Neck: jvd (8 cm water), supple Respiratory: diminished breath sounds (at bases/B) Cardiovascular: regular rate and rhythm Gastrointestinal: non-tender, soft Musculoskeletal: muscle tone (None) Extremities: edema (none) Neurological: other (no focal deficits) Results Result Diagram: 01/20/17 0630 01/21/17 0630 Results 24 hrs Laboratory Tests Test 01/20/17 16:22 01/20/17 21:54 01/21/17 06:30 01/21/17 07:43 Bedside Glucose 174 172 120 Anion Gap 14 Blood Urea Nitrogen 35 H Calcium Level 8.6 Carbon Dioxide Level 30 Chloride Level 101 Creatinine 1.37 H Glucose Level 122 Potassium Level 3.4 L Sodium Level 142 Medications Medications Current Medications Enoxaparin Sodium (Lovenox) 30 mg DAILY SC Last administered on 01/21/17 09:08 ; Admin Dose 30 MG; Start 01/17/17 at 09:00 Ondansetron HCl (Zofran Inj) 4 mg Q6H PRN IV NAUSEA AND/OR VOMITING; Start at 13:30 Acetaminophen (Tylenol Liquid) 650 mg Q6H PRN PO PAIN LEVEL 1-3 OR FEVER; Start 01/16/17 at 13:30 Acetaminophen (Tylenol Tab) 650 mg Q6H PRN PO PAIN LEVEL 1-3 OR FEVER; Start at 13:30 Morphine Sulfate (morphine) 2 mg Q4H PRN IV PAIN LEVEL 7-10 Last administered on 01/17/17 21:43; Admin Dose 2 MG; Start 01/16/17 at 13:30 Lorazepam (Ativan) 1 mg Q2H PRN IV ANXIETY; Start 01/16/17 at 13:30 Docusate Sodium (Colace) 100 mg Q12H PRN PO CONSTIPATION Last administered on 18:12; Admin Dose 100 MG; Start 01/16/17 at 13:30 Allopurinol (Zyloprim) 100 mg DAILY PO Last administered on 01/21/17 09:00; Admin Dose 100 MG; Start 01/17/17 at 09:00 Aspirin (Aspirin) 81 mg DAILY PO Last administered on 01/21/17 08:59; Admin Dose 81 MG; Start 01/17/17 at 09:00 Atorvastatin Calcium (Lipitor) 80 mg QHS PO Last administered on 01/20/17 21: 52; Admin Dose 80 MG; Start 01/16/17 at 21:00 Insulin Glargine (Lantus) 15 unit DAILY SC Last administered on 01/20/17 09:40 ; Admin Dose 15 UNIT; Start 01/17/17 at 09:00 Lisinopril (Zestril) 2.5 mg QAM PO Last administered on 01/21/17 09:00; Admin Dose 2.5 MG; Start 01/17/17 at 09:00 Spironolactone (Aldactone) 12.5 mg QAM PO Last administered on 01/21/17 09:00; Admin Dose 12.5 MG; Start 01/17/17 at 09:00 Clopidogrel Bisulfate (plaVIX) 75 mg DAILY PO Last administered on 01/21/17 08: 59; Admin Dose 75 MG; Start 01/17/17 at 09:00 Miscellaneous Information 1 ea NOTE XX ; Start 01/16/17 at 14:00 Glucose (Glutose) 15 gm Q15M PRN PO DECREASED GLUCOSE; Start 01/16/17 at 14:00 Glucose (Glutose) 22.5 gm Q15M PRN PO DECREASED GLUCOSE; Start 01/16/17 at 14: 00 Dextrose (D50w Syringe) 25 ml Q15M PRN IV DECREASED GLUCOSE; Start 01/16/17 at 14:00 Dextrose (D50w Syringe) 50 ml Q15M PRN IV DECREASED GLUCOSE; Start 01/16/17 at 14:00 Glucagon (Glucagen) 1 mg Q15M PRN IM DECREASED GLUCOSE; Start 01/16/17 at 14:00 Glucose (Glutose) 15 gm Q15M PRN BUCCAL DECREASED GLUCOSE; Start 01/16/17 at 14 :00 Diagnostic Test (Pha) (Accucheck) 1 ea 02 XX ; Start 01/20/17 at 02:00 Famotidine (Pepcid) 20 mg DAILY PO Last administered on 01/21/17 09:00; Admin Dose 20 MG; Start 01/21/17 at 09:00 Carvedilol (Coreg) 6.25 mg BID PO Last administered on 01/21/17 09:00; Admin Dose 6.25 MG; Start 01/20/17 at 21:00 Guaifenesin/ Codeine Phosphate (Robitussin Ac Liquid Cup) 10 ml Q4H PRN PO COUGH Last administered on 01/21/17 07:28; Admin Dose 10 ML; Start 01/21/17 at 00 :00 GIORGIO HADLEY Jan 21, 2017 12:32
[2017-01-21] MEDS: ALBUTEROL 0.5% (NEB) 2.5 MG/0.5 ML AMP NEB PRN (13:08)
[2017-01-21] MEDS: IPRATROPIUM (NEB) 0.5 MG/2.5 ML AMP NEB PRN (15:31)
--- NOTE | 2017-01-21 16:10 | PN ---
Date/Time of Note Date/Time of Note DATE: 01/21/17 TIME: 16:03 Assessment/Plan VTE Prophylaxis VTE Prophylaxis Intervention: LMWH Lines/Catheters IV Catheter Type (from Nrsg): Peripheral IV Assessment/Plan Chief Complaint/Hosp Course 1. Bradycardia s/p placement of cardiac pacemaker -stable 2. Ischemic dilated cardiomyopathy -cont Diuresis 3. Acute systolic CHF, NYHA class 4 -now off vent, cont Lasix IV 4. Diabetes mellitus type 2 in obese -cont Insulin 5. Obesity (BMI 30-39.9) 6. Acute kidney injury superimposed on chronic kidney disease -stable 7. Hx of Cardiac Arrest- now stable 8. Debility -PT eval Dispo- DC Home with HH in AM PPx- Lovenox Problems: Subjective 24 Hr Interval Summary Constitutional: no complaints Exam/Review of Systems Vital Signs Vitals Vital Signs Date Time Temp Pulse Resp B/P Pulse Ox O2 Delivery O2 Flow Rate FiO2 01/21/17 15:41 98.2 71 18 128/67 98 01/21/17 15:36 2.0 01/20/17 21:45 Nasal Cannula 01/18/17 09:20 30 Intake and Output 01/20/17 01/20/17 01/21/17 15:00 23:00 07:00 Intake Total 750 ml 500 ml Output Total 1300 ml 1000 ml Balance -550 ml -500 ml Exam Constitutional: alert, oriented Respiratory: clear to auscultation Cardiovascular: regular rate and rhythm Gastrointestinal: soft, No distended Musculoskeletal: nl extremities to inspection Results Result Diagram: 01/20/17 0630 01/21/17 0630 Results 24 hrs Laboratory Tests Test 01/20/17 16:22 01/20/17 21:54 01/21/17 06:30 01/21/17 07:43 Bedside Glucose 174 172 120 Anion Gap 14 Blood Urea Nitrogen 35 H Calcium Level 8.6 Carbon Dioxide Level 30 Chloride Level 101 Creatinine 1.37 H Glucose Level 122 Potassium Level 3.4 L Sodium Level 142 Medications Medications Current Medications Enoxaparin Sodium (Lovenox) 30 mg DAILY SC Last administered on 01/21/17t 09:08 ; Admin Dose 30 MG; Start 01/17/17 at 09:00 Ondansetron HCl (Zofran Inj) 4 mg Q6H PRN IV NAUSEA AND/OR VOMITING; Start at 13:30 Acetaminophen (Tylenol Liquid) 650 mg Q6H PRN PO PAIN LEVEL 1-3 OR FEVER; Start 01/16/17 at 13:30 Acetaminophen (Tylenol Tab) 650 mg Q6H PRN PO PAIN LEVEL 1-3 OR FEVER; Start at 13:30 Morphine Sulfate (morphine) 2 mg Q4H PRN IV PAIN LEVEL 7-10 Last administered on 01/17/17 21:43; Admin Dose 2 MG; Start 01/16/17 at 13:30 Lorazepam (Ativan) 1 mg Q2H PRN IV ANXIETY; Start 01/16/17 at 13:30 Docusate Sodium (Colace) 100 mg Q12H PRN PO CONSTIPATION Last administered on 18:12; Admin Dose 100 MG; Start 01/16/17 at 13:30 Allopurinol (Zyloprim) 100 mg DAILY PO Last administered on 01/21/17 09:00; Admin Dose 100 MG; Start 01/17/17 at 09:00 Aspirin (Aspirin) 81 mg DAILY PO Last administered on 01/21/17 08:59; Admin Dose 81 MG; Start 01/17/17 at 09:00 Atorvastatin Calcium (Lipitor) 80 mg QHS PO Last administered on 01/20/17 21: 52; Admin Dose 80 MG; Start 01/16/17 at 21:00 Insulin Glargine (Lantus) 15 unit DAILY SC Last administered on 01/20/17 09:40 ; Admin Dose 15 UNIT; Start 01/17/17 at 09:00 Lisinopril (Zestril) 2.5 mg QAM PO Last administered on 01/21/17 09:00; Admin Dose 2.5 MG; Start 01/17/17 at 09:00 Spironolactone (Aldactone) 12.5 mg QAM PO Last administered on 01/21/17 09:00; Admin Dose 12.5 MG; Start 01/17/17 at 09:00 Clopidogrel Bisulfate (plaVIX) 75 mg DAILY PO Last administered on 01/21/17 08: 59; Admin Dose 75 MG; Start 01/17/17 at 09:00 Miscellaneous Information 1 ea NOTE XX ; Start 01/16/17 at 14:00 Glucose (Glutose) 15 gm Q15M PRN PO DECREASED GLUCOSE; Start 01/16/17 at 14:00 Glucose (Glutose) 22.5 gm Q15M PRN PO DECREASED GLUCOSE; Start 01/16/17 at 14: 00 Dextrose (D50w Syringe) 25 ml Q15M PRN IV DECREASED GLUCOSE; Start 01/16/17 at 14:00 Dextrose (D50w Syringe) 50 ml Q15M PRN IV DECREASED GLUCOSE; Start 01/16/17 at 14:00 Glucagon (Glucagen) 1 mg Q15M PRN IM DECREASED GLUCOSE; Start 01/16/17 at 14:00 Glucose (Glutose) 15 gm Q15M PRN BUCCAL DECREASED GLUCOSE; Start 01/16/17 at 14 :00 Diagnostic Test (Pha) (Accucheck) 1 ea 02 XX ; Start 01/20/17 at 02:00 Famotidine (Pepcid) 20 mg DAILY PO Last administered on 01/21/17 09:00; Admin Dose 20 MG; Start 01/21/17 at 09:00 Carvedilol (Coreg) 6.25 mg BID PO Last administered on 01/21/17 09:00; Admin Dose 6.25 MG; Start 01/20/17 at 21:00 Guaifenesin/ Codeine Phosphate (Robitussin Ac Liquid Cup) 10 ml Q4H PRN PO COUGH Last administered on 01/21/17 07:28; Admin Dose 10 ML; Start 01/21/17 at 00 :00 KHANH GANT Jan 21, 2017 16:10
[2017-01-21] MEDS: ATORVASTATIN 80 MG TAB PO SCH (21:15)
[2017-01-22] VITALS (13 sets, daily range): BP systolic 110–163; BP diastolic 55–78; PULSE 68–81; RESP 17–19
[2017-01-22] MEDS: ACCUCHECK XX SCH (02:00)
[2017-01-22] MEDS: FUROSEMIDE 40 MG INJ IV SCH ×2 (05:13→17:07)
[2017-01-22] MEDS: INSULIN GLARGINE [LANtus] 3 ML PEN SC SCH (07:24)
[2017-01-22] MEDS: INSULIN ASPART [NOVOLOG] 3 ML PEN SC SCH ×4 (07:24→21:23)
[2017-01-22 07:35] LABS: ADD SCAN DIFF NO
[2017-01-22 07:37] LABS: BASOPHIL # 0.1 10^3/ul (0.0-0.1); BASOPHILS % 0.6 % (0.0-2.0); EOSINOPHILS # 0.7 10^3/ul (0.0-0.5); EOSINOPHILS % 8.6 % (0.0-7.0); HEMOGLOBIN 12.2 g/dl (14.0-18.0); LYMPHOCYTES # 1.1 10^3/ul (0.8-2.9); LYMPHOCYTES % 14.2 % (15.0-51.0); MEAN CORPUSCULAR HEMOGLOBIN 28.4 pg (29.0-33.0); MEAN CORPUSCULAR HGB CONC 32.1 g/dl (32.0-37.0); MEAN CORPUSCULAR VOLUME 88.4 fl (82.0-101.0); MEAN PLATELET VOLUME 12.2 fl (7.4-10.4); MONOCYTES % 12.3 % (0.0-11.0); PLATELET COUNT 195 10^3/UL (140-415); RED CELL DISTRIBUTION WIDTH 16.3 % (11.5-14.5); WHITE BLOOD COUNT 7.9 10^3/ul (4.8-10.8)
[2017-01-22 07:48] LABS: POTASSIUM 3.6 mmol/L (3.5-5.1)
[2017-01-22 07:51] LABS: CREATININE 1.34 mg/dl (0.61-1.24)
[2017-01-22 07:52] LABS: CALCIUM 8.7 mg/dl (8.4-10.2)
[2017-01-22] MEDS: ALLOPURINOL 100 MG TAB PO SCH (08:53)
[2017-01-22] MEDS: CLOPIDOGREL 75 MG TAB PO SCH (08:53)
[2017-01-22] MEDS: ASPIRIN 81 MG TAB PO SCH (08:53)
[2017-01-22] MEDS: GUAIFENESIN/CODEINE 5ML CUP PO PRN (08:53)
[2017-01-22] MEDS: SPIRONOLACTONE 25 MG TAB PO SCH (08:53)
[2017-01-22] MEDS: LISINOPRIL 5 MG TAB PO SCH (08:54)
[2017-01-22] MEDS: FAMOTIDINE 20 MG TAB PO SCH (08:54)
[2017-01-22] MEDS: ENOXAPARIN 30 MG/0.3 ML SYG SC SCH (09:43)
[2017-01-22] MEDS: IPRATROPIUM (NEB) 0.5 MG/2.5 ML AMP NEB PRN (11:19)
[2017-01-22] MEDS: ALBUTEROL 0.5% (NEB) 2.5 MG/0.5 ML AMP NEB PRN (11:19)
--- NOTE | 2017-01-22 14:07 | CONS ---
Date/Time of Note Date/Time of Note DATE: 01/22/17 TIME: 14:04 Assessment/Plan Assessment/Plan Chief Complaint/Hosp Course Imp: 1.CHF-systolic acute on chronic 2.Cardiomyopathy-EF 10% by echo this admit 3.Symptomatic bradycardia s/p PPM implant 4.HTN-labile and currently uncontrolled 5.ARF 6.cad Recc: -Tele -serial ecg's -Continue coreg and increase ACEI to improve BP -Continue asa/plavix -Continue lasix and follow volume status closely Problems: Consultation Date/Type/Reason Admit Date/Time Jan 16, 2017 at 14:14 Initial Consult Date 01/16/17 Type of Consultation: Cardiology Reason for Consultation CHF/cardiomyopathy/VT Referring Provider: KHANH GANT Exam/Review of Systems Vital Signs Vitals Vital Signs Date Time Temp Pulse Resp B/P Pulse Ox O2 Delivery O2 Flow Rate FiO2 01/22/17 12:00 80 01/22/17 11:38 98.6 18 163/71 96 01/22/17 11:20 0.5 01/20/17 21:45 Nasal Cannula 01/18/17 09:20 30 Intake and Output 01/21/17 01/21/17 01/22/17 15:00 23:00 07:00 Intake Total 800 ml 600 ml Output Total 900 ml Balance 800 ml -300 ml Exam Review of Systems: CONSTITUTIONAL: No fevers, chills. PULMONARY: mild sob CARDIOVASCULAR: No chest pain/palpitations GASTROINTESTINAL: No nausea/vomiting. GENITOURINARY: No hematuria/dysuria. MUSCULOSKELETAL: No myagias/arthalgias. PSYCHIATRIC: The patient denies depression. NEUROLOGIC: lethargic Constitutional: alert, oriented Psych: no complaints Head: normocephalic ENMT: mucosa pink and moist Neck: jvd (9 cm water), supple Respiratory: diminished breath sounds (at bases/B) Cardiovascular: regular rate and rhythm Gastrointestinal: non-tender, soft Musculoskeletal: muscle tone (normal) Extremities: edema (trace/B) Neurological: lethargic Results Result Diagram: 01/22/17 0622 01/22/17 0622 Results 24 hrs Laboratory Tests Test 01/21/17 17:24 01/21/17 21:13 01/22/17 06:22 01/22/17 07:23 Bedside Glucose 113 156 120 Anion Gap 14 Basophils # 0.1 Basophils % 0.6 Blood Urea Nitrogen 34 H Calcium Level 8.7 Carbon Dioxide Level 31 Chloride Level 101 Creatinine 1.34 H Eosinophils # 0.7 H Eosinophils % 8.6 H Glucose Level 114 Hematocrit 38.0 L Hemoglobin 12.2 L Lymphocytes # 1.1 Lymphocytes % 14.2 L Mean Corpuscular Hemoglobin 28.4 L Mean Corpuscular Hemoglobin Concent 32.1 Mean Corpuscular Volume 88.4 Mean Platelet Volume 12.2 H Monocytes # 1.0 H Monocytes % 12.3 H Neutrophils # 5.0 Neutrophils % 64.0 Nucleated Red Blood Cells # 0.0 Nucleated Red Blood Cells % 0.0 Platelet Count 195 Potassium Level 3.6 Red Blood Count 4.30 L Red Cell Distribution Width 16.3 H Sodium Level 142 White Blood Count 7.9 Test 01/22/17 11:56 Bedside Glucose 180 Medications Medications Current Medications Enoxaparin Sodium (Lovenox) 30 mg DAILY SC Last administered on 01/22/17 09:43 ; Admin Dose 30 MG; Start 01/17/17 at 09:00 Ondansetron HCl (Zofran Inj) 4 mg Q6H PRN IV NAUSEA AND/OR VOMITING; Start at 13:30 Acetaminophen (Tylenol Liquid) 650 mg Q6H PRN PO PAIN LEVEL 1-3 OR FEVER; Start 01/16/17 at 13:30 Acetaminophen (Tylenol Tab) 650 mg Q6H PRN PO PAIN LEVEL 1-3 OR FEVER; Start at 13:30 Morphine Sulfate (morphine) 2 mg Q4H PRN IV PAIN LEVEL 7-10 Last administered on 01/17/17 21:43; Admin Dose 2 MG; Start 01/16/17 at 13:30 Lorazepam (Ativan) 1 mg Q2H PRN IV ANXIETY; Start 01/16/17 at 13:30 Docusate Sodium (Colace) 100 mg Q12H PRN PO CONSTIPATION Last administered on 18:12; Admin Dose 100 MG; Start 01/16/17 at 13:30 Allopurinol (Zyloprim) 100 mg DAILY PO Last administered on 01/22/17 08:53; Admin Dose 100 MG; Start 01/17/17 at 09:00 Aspirin (Aspirin) 81 mg DAILY PO Last administered on 01/22/17 08:53; Admin Dose 81 MG; Start 01/17/17 at 09:00 Atorvastatin Calcium (Lipitor) 80 mg QHS PO Last administered on 01/21/17 21:15 ; Admin Dose 80 MG; Start 01/16/17 at 21:00 Insulin Glargine (Lantus) 15 unit DAILY SC Last administered on 01/20/17 09:40 ; Admin Dose 15 UNIT; Start 01/17/17 at 09:00 Lisinopril (Zestril) 2.5 mg QAM PO Last administered on 01/22/17 08:54; Admin Dose 2.5 MG; Start 01/17/17 at 09:00 Spironolactone (Aldactone) 12.5 mg QAM PO Last administered on 01/22/17 08:53; Admin Dose 12.5 MG; Start 01/17/17 at 09:00 Clopidogrel Bisulfate (plaVIX) 75 mg DAILY PO Last administered on 01/22/17 08: 53; Admin Dose 75 MG; Start 01/17/17 at 09:00 Miscellaneous Information 1 ea NOTE XX ; Start 01/16/17 at 14:00 Glucose (Glutose) 15 gm Q15M PRN PO DECREASED GLUCOSE; Start 01/16/17 at 14:00 Glucose (Glutose) 22.5 gm Q15M PRN PO DECREASED GLUCOSE; Start 01/16/17 at 14: 00 Dextrose (D50w Syringe) 25 ml Q15M PRN IV DECREASED GLUCOSE; Start 01/16/17 at 14:00 Dextrose (D50w Syringe) 50 ml Q15M PRN IV DECREASED GLUCOSE; Start 01/16/17 at 14:00 Glucagon (Glucagen) 1 mg Q15M PRN IM DECREASED GLUCOSE; Start 01/16/17 at 14:00 Glucose (Glutose) 15 gm Q15M PRN BUCCAL DECREASED GLUCOSE; Start 01/16/17 at 14 :00 Diagnostic Test (Pha) (Accucheck) 1 ea 02 XX ; Start 01/20/17 at 02:00 Famotidine (Pepcid) 20 mg DAILY PO Last administered on 01/22/17 08:54; Admin Dose 20 MG; Start 01/21/17 at 09:00 Carvedilol (Coreg) 6.25 mg BID PO Last administered on 01/22/17 08:53; Admin Dose 6.25 MG; Start 01/20/17 at 21:00 Guaifenesin/ Codeine Phosphate (Robitussin Ac Liquid Cup) 10 ml Q4H PRN PO COUGH Last administered on 01/22/17 08:53; Admin Dose 10 ML; Start 01/21/17 at 00 :00 GIORGIO HADLEY Jan 22, 2017 14:07
--- NOTE | 2017-01-22 15:38 | PN ---
Date/Time of Note Date/Time of Note DATE: 01/22/17 TIME: 15:36 Assessment/Plan VTE Prophylaxis VTE Prophylaxis Intervention: LMWH Lines/Catheters IV Catheter Type (from Nrsg): Peripheral IV Assessment/Plan Chief Complaint/Hosp Course 1. Bradycardia s/p placement of cardiac pacemaker -stable 2. Ischemic dilated cardiomyopathy -cont Diuresis 3. Acute systolic CHF, NYHA class 4 -now off vent, cont Lasix IV 4. Diabetes mellitus type 2 in obese -cont Insulin 5. Obesity (BMI 30-39.9) 6. Acute kidney injury superimposed on chronic kidney disease -stable 7. Hx of Cardiac Arrest- now stable 8. Debility with SOB with minimal activity -PT Dispo- Likely DC Home with HH in AM PPx- Lovenox Problems: Subjective 24 Hr Interval Summary Respiratory: shortness of breath Exam/Review of Systems Vital Signs Vitals Vital Signs Date Time Temp Pulse Resp B/P Pulse Ox O2 Delivery O2 Flow Rate FiO2 01/22/17 15:08 98.1 69 19 117/78 96 01/22/17 11:20 0.5 01/20/17 21:45 Nasal Cannula 01/18/17 09:20 30 Intake and Output 01/21/17 01/21/17 01/22/17 15:00 23:00 07:00 Intake Total 800 ml 600 ml Output Total 900 ml Balance 800 ml -300 ml Exam Constitutional: alert, oriented Respiratory: clear to auscultation Cardiovascular: regular rate and rhythm Gastrointestinal: soft, No distended Musculoskeletal: nl extremities to inspection Results Result Diagram: 01/22/17 0622 01/22/17 0622 Results 24 hrs Laboratory Tests Test 01/21/17 17:24 01/21/17 21:13 01/22/17 06:22 01/22/17 07:23 Bedside Glucose 113 156 120 Anion Gap 14 Basophils # 0.1 Basophils % 0.6 Blood Urea Nitrogen 34 H Calcium Level 8.7 Carbon Dioxide Level 31 Chloride Level 101 Creatinine 1.34 H Eosinophils # 0.7 H Eosinophils % 8.6 H Glucose Level 114 Hematocrit 38.0 L Hemoglobin 12.2 L Lymphocytes # 1.1 Lymphocytes % 14.2 L Mean Corpuscular Hemoglobin 28.4 L Mean Corpuscular Hemoglobin Concent 32.1 Mean Corpuscular Volume 88.4 Mean Platelet Volume 12.2 H Monocytes # 1.0 H Monocytes % 12.3 H Neutrophils # 5.0 Neutrophils % 64.0 Nucleated Red Blood Cells # 0.0 Nucleated Red Blood Cells % 0.0 Platelet Count 195 Potassium Level 3.6 Red Blood Count 4.30 L Red Cell Distribution Width 16.3 H Sodium Level 142 White Blood Count 7.9 Test 01/22/17 11:56 Bedside Glucose 180 Medications Medications Current Medications Enoxaparin Sodium (Lovenox) 30 mg DAILY SC Last administered on 01/22/17 09:43 ; Admin Dose 30 MG; Start 01/17/17 at 09:00 Ondansetron HCl (Zofran Inj) 4 mg Q6H PRN IV NAUSEA AND/OR VOMITING; Start at 13:30 Acetaminophen (Tylenol Liquid) 650 mg Q6H PRN PO PAIN LEVEL 1-3 OR FEVER; Start 01/16/17 at 13:30 Acetaminophen (Tylenol Tab) 650 mg Q6H PRN PO PAIN LEVEL 1-3 OR FEVER; Start at 13:30 Morphine Sulfate (morphine) 2 mg Q4H PRN IV PAIN LEVEL 7-10 Last administered on 01/17/17 21:43; Admin Dose 2 MG; Start 01/16/17 at 13:30 Lorazepam (Ativan) 1 mg Q2H PRN IV ANXIETY; Start 01/16/17 at 13:30 Docusate Sodium (Colace) 100 mg Q12H PRN PO CONSTIPATION Last administered on 18:12; Admin Dose 100 MG; Start 01/16/17 at 13:30 Allopurinol (Zyloprim) 100 mg DAILY PO Last administered on 01/22/17 08:53; Admin Dose 100 MG; Start 01/17/17 at 09:00 Aspirin (Aspirin) 81 mg DAILY PO Last administered on 01/22/17 08:53; Admin Dose 81 MG; Start 01/17/17 at 09:00 Atorvastatin Calcium (Lipitor) 80 mg QHS PO Last administered on 01/21/17 21:15 ; Admin Dose 80 MG; Start 01/16/17 at 21:00 Insulin Glargine (Lantus) 15 unit DAILY SC Last administered on 01/20/17 09:40 ; Admin Dose 15 UNIT; Start 01/17/17 at 09:00 Spironolactone (Aldactone) 12.5 mg QAM PO Last administered on 01/22/17 08:53; Admin Dose 12.5 MG; Start 01/17/17 at 09:00 Clopidogrel Bisulfate (plaVIX) 75 mg DAILY PO Last administered on 01/22/17 08: 53; Admin Dose 75 MG; Start 01/17/17 at 09:00 Miscellaneous Information 1 ea NOTE XX ; Start 01/16/17 at 14:00 Glucose (Glutose) 15 gm Q15M PRN PO DECREASED GLUCOSE; Start 01/16/17 at 14:00 Glucose (Glutose) 22.5 gm Q15M PRN PO DECREASED GLUCOSE; Start 01/16/17 at 14: 00 Dextrose (D50w Syringe) 25 ml Q15M PRN IV DECREASED GLUCOSE; Start 01/16/17 at 14:00 Dextrose (D50w Syringe) 50 ml Q15M PRN IV DECREASED GLUCOSE; Start 01/16/17 at 14:00 Glucagon (Glucagen) 1 mg Q15M PRN IM DECREASED GLUCOSE; Start 01/16/17 at 14:00 Glucose (Glutose) 15 gm Q15M PRN BUCCAL DECREASED GLUCOSE; Start 01/16/17 at 14 :00 Diagnostic Test (Pha) (Accucheck) 1 ea 02 XX ; Start 01/20/17 at 02:00 Famotidine (Pepcid) 20 mg DAILY PO Last administered on 01/22/17 08:54; Admin Dose 20 MG; Start 01/21/17 at 09:00 Carvedilol (Coreg) 6.25 mg BID PO Last administered on 01/22/17 08:53; Admin Dose 6.25 MG; Start 01/20/17 at 21:00 Guaifenesin/ Codeine Phosphate (Robitussin Ac Liquid Cup) 10 ml Q4H PRN PO COUGH Last administered on 01/22/17 08:53; Admin Dose 10 ML; Start 01/21/17 at 00 :00 Lisinopril (Zestril) 10 mg QAM PO ; Start 01/23/17 at 09:00 KHANH GANT Jan 22, 2017 15:37
[2017-01-22] MEDS: ATORVASTATIN 80 MG TAB PO SCH (21:18)
[2017-01-23] VITALS (7 sets, daily range): BP systolic 114–140; BP diastolic 56–70; PULSE 69–89; RESP 20–22
[2017-01-23] MEDS: ACCUCHECK XX SCH (02:00)
[2017-01-23] MEDS: FUROSEMIDE 40 MG INJ IV SCH (06:08)
[2017-01-23 06:55] LABS: ADD SCAN DIFF NO
[2017-01-23 06:59] LABS: BASOPHILS % 0.5 % (0.0-2.0); EOSINOPHILS # 0.7 10^3/ul (0.0-0.5); HEMATOCRIT 39.7 % (42.0-52.0); HEMOGLOBIN 12.6 g/dl (14.0-18.0); LYMPHOCYTES % 12.5 % (15.0-51.0); MEAN CORPUSCULAR HEMOGLOBIN 28.4 pg (29.0-33.0); MEAN CORPUSCULAR HGB CONC 31.7 g/dl (32.0-37.0); MEAN CORPUSCULAR VOLUME 89.6 fl (82.0-101.0); MEAN PLATELET VOLUME 12.1 fl (7.4-10.4); MONOCYTE # 0.8 10^3/ul (0.3-0.9); MONOCYTES % 9.9 % (0.0-11.0); NEUTROPHIL # 5.7 10^3/ul (1.6-7.5); NEUTROPHILS % 68.9 % (39.0-77.0); PLATELET COUNT 213 10^3/UL (140-415); RED BLOOD COUNT 4.43 10^6/ul (4.70-6.10); WHITE BLOOD COUNT 8.2 10^3/ul (4.8-10.8)
[2017-01-23 07:15] LABS: POTASSIUM 3.9 mmol/L (3.5-5.1)
[2017-01-23 07:17] LABS: CREATININE 1.37 mg/dl (0.61-1.24)
[2017-01-23 07:18] LABS: CALCIUM 8.9 mg/dl (8.4-10.2)
[2017-01-23] MEDS: INSULIN ASPART [NOVOLOG] 3 ML PEN SC SCH ×2 (07:55→12:44)
[2017-01-23] MEDS: INSULIN GLARGINE [LANtus] 3 ML PEN SC SCH (09:00)
[2017-01-23] MEDS ORDERED: LISINOPRIL 10 MG TAB PO SCH (09:00)
[2017-01-23] MEDS: SPIRONOLACTONE 25 MG TAB PO SCH (09:35)
[2017-01-23] MEDS: ASPIRIN 81 MG TAB PO SCH (09:35)
[2017-01-23] MEDS: CLOPIDOGREL 75 MG TAB PO SCH (09:35)
[2017-01-23] MEDS: FAMOTIDINE 20 MG TAB PO SCH (09:35)
[2017-01-23] MEDS: ALLOPURINOL 100 MG TAB PO SCH (09:36)
[2017-01-23] MEDS: ENOXAPARIN 30 MG/0.3 ML SYG SC SCH (09:45)
[2017-01-23] MEDS ORDERED: LISI10TA2 PO (11:13)
[2017-01-23] MEDS ORDERED: CARV6.2579 PO (11:13)
[2017-01-23] MEDS ORDERED: FURO-109 PO (11:13)
--- NOTE | 2017-01-23 11:15 | PDOCDIS ---
Discharge Instructions CONDITION Patient Condition: Good HOME CARE INSTRUCTIONS: Diet Instructions: Reduced Sodium ACTIVITY: Activity Restrictions: Slowly Increase Activity FOLLOW UP/APPOINTMENTS Appointments F/U WITH YOUR PCP IN 1-2 WEEKS, F/U WITH YOUR SIGN LANGUAGE INTERPRETER KHANH GANT Jan 23, 2017 11:15
--- NOTE | 2017-01-23 18:36 | DS ---
DATE OF ADMISSION: 01/16/2017 DATE OF DISCHARGE: 01/23/2017 DISCHARGE DIAGNOSES: 1. Cardiac arrest, now stable. 2. Cardiomyopathy with ejection fraction 10%. Continue home meds, have increased Coreg and lisinop ril. We will also discharge with Lasix. 3. Bradycardia, status post pacemaker placement. 4. Diabetes, stable. Continue insulin. 5. Obesity. Weight loss was advised. 6. Acute kidney injury on chronic kidney disease, stable. 7. Hypertension. Continue Coreg, but I have increased the dose. I have also increased the dose of lisinopril. 8. Debility, will receive physical therapy at home via home health. HOSPITAL COURSE: The patient is a 71-year-old male with a history of obesity, diabetes, and hyperte nsion. The patient also has a history of coronary artery disease with known CHF. The patient prese nts with shortness of breath and findings of a complete heart block. The patient has a known histor y of heart failure with an EF of 35%. In the ED, the patient had an echo that showed EF of 10% to 1 5%. The patient ultimately went into asystole with cardiac arrest in the ER. The patient was taken to the labor expediter for temporary pacemaker placement. The patient had 3 cardiac arrests. The patient was transferred to the ICU. He was intubated, on pressors. The patient was ultimately weaned off of the vent. The patient underwent pacemaker placement with Dr. Jon. The patient was ultimately transferred out of the ICU. He was working with PT. He was able to ambulate. He was ultimately f elt to be stable for discharge. The patient did require IV diuresis. Once again, the patient's ech o had shown an ejection fraction of 10%. The patient does likely chronic kidney disease from his un derlying diabetes. His creatinine did stabilize throughout the hospitalization. He was ultimately felt to be stable for discharge. On the day of discharge, the patient's vitals, labs, physical exam were stable. He had no acute complaints. Questions were answered. CONDITION ON DISCHARGE: Stable. DISPOSITION: To home with home health. MEDICATIONS: 1. The patient was given a new prescription for Coreg 6.25 b.i.d. 2. Lasix 40 p.o. b.i.d. 3. Lisinopril 10 p.o. q.a.m. The patient is to continue his other home medications. He is to stop taking Coreg 3.125 and lisinop ril 2.5. FOLLOWUP: He is to follow up with PCP in 1 to 2 weeks and with cardiology in 1 to 2 weeks. Greater than 30 minutes was spent coordinating discharge of patient. Dictated By: KHANH GANT MD BS/NTS Conf#: [id number] DID#: [id number]
== END 2017-01-23 14:45 | disposition home health service (06) | DRG 242 ==
LOC: E/R 08:29 → GIL 10:58 → CCL 10:58 → ICU 11:45 → TEL 01-20 01:25
PROVIDERS: ADMIT Family Medicine; ATTEND Family Medicine
PROC: 5A1223Z Performance of Cardiac Pacing, Continuous (ICD-10-PCS; 2017-01-16)
PROC: 0BH17EZ Insertion of Endotracheal Airway into Trachea, Via Natural or Artificial Opening (ICD-10-PCS; 2017-01-16)
PROC: 5A1945Z Respiratory Ventilation, 24-96 Consecutive Hours (ICD-10-PCS; 2017-01-16)
PROC: 0JH604Z Insertion of Pacemaker, Single Chamber into Chest Subcutaneous Tissue and Fascia, Open Approach (ICD-10-PCS; principal; 2017-01-16 11:00)
PROC: 02HK3JZ Insertion of Pacemaker Lead into Right Ventricle, Percutaneous Approach (ICD-10-PCS; 2017-01-16 18:30)
DX: I44.2 Atrioventricular block, complete (principal); I46.9 Cardiac arrest, cause unspecified; J96.00 Acute respiratory failure, unspecified whether with hypoxia or hypercapnia; I50.23 Acute on chronic systolic (congestive) heart failure; N17.9 Acute kidney failure, unspecified; I13.0 Hypertensive heart and chronic kidney disease with heart failure and stage 1 through stage 4 chronic kidney disease, or unspecified chronic kidney disease; R00.1 Bradycardia, unspecified; E66.9 Obesity, unspecified; Z68.30 Body mass index [BMI] 30.0-30.9, adult; E11.9 Type 2 diabetes mellitus without complications; Z95.1 Presence of aortocoronary bypass graft; N18.2 Chronic kidney disease, stage 2 (mild)
CPT/HCPCS: 31500; 36600; 71010; 71023; 80048; 80053; 80061; 82550; 82553; 82803; 82962; 83690; 83735; 83880; 84100; 84484; 85025; 85610; 85730; 87081; 92610; 92950; 92953; 93005; 93306; 93308; 94002; 94003; 94640; 94770; 97116; 97163; 97530; J1940; C1894; J0171; J0461; J0690; J0696; J1644; J1650; J1815; J2270; J3480; J7030; J7070; Q9967

== ENCOUNTER 2017-12-28 06:25 | Inpatient (IN) | END 2017-12-30 11:15 | disposition home or self-care (01) | DRG 291 ==

== ENCOUNTER 2018-12-19 02:28 | Inpatient (IN) | payer OTHER ==
[2018-12-19] VITALS (9 sets, daily range): BP systolic 93–109; BP diastolic 55–65; PULSE 65–74; RESP 17–19; Ht 167.6 cm; Wt 100.6 kg
[~2018-12-19] VITALS: Ht 167.6 cm; Wt 100.6 kg
[~2018-12-19 02:28] MED LIST changes: +ALFU10TA2 PO; +ALLO100T PO; +APIX5TAB PO; +ASPI-817 PO; -ASPI81TA3 PO; +ATOR-2 PO; -ATOR20TA38 PO; +BUME1TAB PO; +CARV6.2579 PO; +CHOL100062 PO; -CLOP75TA4 PO; -DILT300C33 PO; -FENO48TA4 PO; -LANT3I SC; +LISI-313 PO; -METO-448 PO; -OMEG-135 PO; +OMEG1CAP2 PO
--- NOTE | 2018-12-19 02:42 | ERD ---
ER Documentation Chief Complaint Chief Complaint GASPER RALeticia from home,c/o burning chest pain on and off,took aspirin 81 mg PO HPI 73-year-old man with multiple cardiac medical conditions presents with substernal left-sided nonradiating nonexertional chest pain beginning a few hours prior to arrival. He states the chest pain has been intermittent over the last few hours but when it comes on lasts for about 10 minutes and then decr eases in intensity. He states last week he was treated for CHF as an outpatient with oral furosemide which caused significant diuresis and weight loss and improved his dyspnea that he had last week. He denies shortness of breath tonight, denies fevers, no cough, no headache or blurry vision, no vomiting or diarrhea. Patient did use one low-dose aspirin today prior to arrival. ROS All systems reviewed and are negative except as per history of present illness. Medications Home Meds Active Scripts Carvedilol* (Carvedilol*) 6.25 Mg Tablet, 6.25 MG PO BID for 30 Days, #60 TAB Prov:CAROLINE MARIE MD 12/30/17 Bumetanide* (Bumetanide*) 1 Mg Tablet, 2 MG PO BID DIURETICS for 30 Days, #60 TAB Prov:CAROLINE MARIE MD 12/30/17 Reported Medications Sitagliptin* (Januvia*) 50 Mg Tablet, 50 MG PO DAILY, #30 TAB 12/28/17 Logan-3 Acid Ethyl Esters (Lovaza) 1 Gm Capsule, 4 GM PO DAILY, CAP 12/28/17 Lisinopril* (Lisinopril*) 5 Mg Tablet, 5 MG PO DAILY, #30 TAB 12/28/17 Cholecalciferol* (Vitamin D3*) 1,000 Unit Tablet, 2000 UNIT PO DAILY, TAB 12/28/17 Atorvastatin* (Atorvastatin*) 80 Mg Tablet, 80 MG PO QHS, #30 TAB 12/28/17 Aspirin* (Aspirin* EC) 81 Mg Tablet.dr, 81 MG PO DAILY, TAB 12/28/17 Apixaban* (Eliquis*) 5 Mg Tablet, 5 MG PO BID, TAB 12/28/17 Allopurinol* (Allopurinol*) 100 Mg Tablet, 200 MG PO DAILY, TAB 12/28/17 Alfuzosin Hcl* (Alfuzosin Hcl*) 10 Mg Tab.er.24h, 10 MG PO DAILY, #30 TAB.SA 12/28/17 Allergies Allergies: Coded Allergies: No Known Allergy (Unverified , 06/03/14) PMhx/Soc CHF with EF between 15 and 30%, CAD status post CABG, atrial fibrillation, hypertension, dyslipidemia, diabetes mellitus type 2, chronic kidney disease, third-degree AV block status post AICD, status post cardiac arrest in January 2017, partial colectomy History of Surgery: Yes (partial colectomy,left hip replacement) Anesthesia Reaction: No Hx Neurological Disorder: No Hx Respiratory Disorders: No Hx Cardiac Disorders: Yes (htn,3rd degree block,pacemaker,hyperlipidemia,chf) Hx Psychiatric Problems: No Hx Miscellaneous Medical Probl: Yes (ckd,s/p cardiac arrest 2016) Hx Alcohol Use: No Hx Substance Use: No Hx Tobacco Use: No FmHx Family History: No diabetes Physical Exam Vitals Vital Signs Date Temp Pulse Resp B/P (MAP) Pulse Ox O2 O2 Flow FiO2 Time Delivery Rate 12/19/18 2 03:13 12/19/18 98.4 65 18 116/59 99 02:34 (78) Physical Exam Const: No acute distress Head: Atraumatic Eyes: Normal Conjunctiva ENT: Normal External Ears, Nose and Mouth. Neck: Full range of motion. No meningismus. Resp: Clear to auscultation bilaterally Cardio: Regular rate and rhythm, no murmurs Abd: Soft, non tender, non distended. Normal bowel sounds Skin: No petechiae or rashes Back: No midline or flank tenderness Ext: No cyanosis, 3+ pitting edema in the lower extremities bilaterally Neur: Awake and alert x3, no focal deficits or facial asymmetry, moving all extremities Psych: Normal Mood and Affect Result Diagram: 12/19/18 0310 12/19/18 0310 Results 24 hrs Laboratory Tests Test 12/19/18 03:10 White Blood Count 6.1 10^3/ul Red Blood Count 4.35 10^6/ul Hemoglobin 12.9 g/dl Hematocrit 37.9 % Mean Corpuscular Volume 87.1 fl Mean Corpuscular Hemoglobin 29.7 pg Mean Corpuscular Hemoglobin Concent 34.0 g/dl Red Cell Distribution Width 15.9 % Platelet Count 147 10^3/UL Mean Platelet Volume 12.4 fl Immature Granulocytes % 0.300 % Neutrophils % 73.1 % Lymphocytes % 9.5 % Monocytes % 11.3 % Eosinophils % 5.1 % Basophils % 0.7 % Nucleated Red Blood Cells % 0.0 /100WBC Immature Granulocytes # 0.020 10^3/ul Neutrophils # 4.4 10^3/ul Lymphocytes # 0.6 10^3/ul Monocytes # 0.7 10^3/ul Eosinophils # 0.3 10^3/ul Basophils # 0.0 10^3/ul Nucleated Red Blood Cells # 0.0 10^3/ul Prothrombin Time 22.1 Sec Prothrombin Time Ratio 1.7 INR International Normalized Ratio 1.93 Activated Partial Thromboplast Time 46.5 Sec Sodium Level 139 mmol/L Potassium Level 3.0 mmol/L Chloride Level 92 mmol/L Carbon Dioxide Level 34 mmol/L Anion Gap 13 Blood Urea Nitrogen 67 mg/dl Creatinine 2.24 mg/dl Est Glomerular Filtrat Rate mL/min mL/min Glucose Level 99 mg/dl Calcium Level 9.5 mg/dl Total Bilirubin 0.5 mg/dl Direct Bilirubin 0.00 mg/dl Indirect Bilirubin 0.5 mg/dl Aspartate Amino Transf (AST/SGOT) 23 IU/L Alanine Aminotransferase (ALT/SGPT) 15 IU/L Alkaline Phosphatase 197 IU/L Troponin I 0.046 ng/ml B-Type Natriuretic Peptide 72658 PG/ML Total Protein 7.5 g/dl Albumin 3.8 g/dl Globulin 3.70 g/dl Albumin/Globulin Ratio 1.02 Lipase 178 U/L Current Medications Medications Dose Sig/Percy Start Time Status Last (Trade) Ordered Route PRN Stop Time Admin Dose Reason Admin Aspirin 162 mg ONCE ONCE 12/19/18 DC 12/19/18 (Aspirin) PO 03:00 03:24 12/19/18 03:01 Procedures/MDM IV line was established patient was placed on security monitor rhythm strip revealed a wide-complex paced rhythm at about 80 bpm with upright P and T waves. Patient was afebrile 1 view chest x-ray performed, read by me reveals cardiomegaly and bilateral pulmonary congestion, no acute infiltrates, no pneumothorax, AICD in the left chest EKG performed, read by me revealed a paced rhythm with intermittent escaped beats overall 80 bpm, left axis deviation, no concerning ST elevations or depressions noted I administered aspirin 162 mg for cardioprotective measures. Patient refused furosemide CBC was normal, electrolytes reveal acute kidney injury with a creatinine of 2.2, liver function tests normal, troponin negative Patient will be admitted to telemetry setting for continued medical management and cardiology consultation. Departure Diagnosis: Primary Impression: Acute systolic CHF (congestive heart failure), NYHA class 4 Additional Impressions: Acute chest pain Acute kidney injury superimposed on chronic kidney disease Acute hypokalemia Condition: SHRAVAN Ewing MD Dec 19, 2018 02:42
[2018-12-19] MEDS ORDERED: ASPIRIN 81 MG TAB PO ONE (03:00)
[2018-12-19] MEDS ORDERED: OXYCODONE/ACETAMINOPHEN (5/325) TAB PO ONE (05:00)
[2018-12-19] MEDS ORDERED: ACETAMINOPHEN 325 MG TAB PO PRN (06:00)
[2018-12-19] MEDS ORDERED: NITROGLYCERIN (SL) 0.4 MG TAB SL PRN (06:00)
[2018-12-19] MEDS ORDERED: BISACODYL (EC) 5 MG TAB PO PRN (06:00)
[2018-12-19] MEDS ORDERED: DOCUSATE SODIUM 100 MG CAP PO PRN (06:00)
[2018-12-19] MEDS ORDERED: NACL 0.9% 3 ML SYG IV SCH (06:00)
[2018-12-19] MEDS ORDERED: ONDANSETRON 4 MG INJ IV PRN (06:00)
[2018-12-19] MEDS ORDERED: HEPARIN 5,000 UNIT/1 ML VIAL SC SCH (06:00)
--- NOTE | 2018-12-19 06:14 | HP ---
Date/Time of Note Date/Time of Note DATE: 12/19/18 TIME: 05:58 Assessment/Plan VTE Prophylaxis SCD applied (from Nsg): Yes Pharmacological prophylaxis: apixaban Lines/Catheters IV Catheter Type (from Nrsg): Saline Lock Assessment/Plan Hospital Course This is a 73-year-old male being admitted to the telemetry floor for: 1 chest pain: Rule out ACS versus other. Will trend cardiac enzymes x3, will check an echocardiogram, PRN nitro/morphine for pain. Continue home medications of aspirin and cardiac meds 2 mild CHF exacerbation: Patient at the current time does not appear to be in any acute respiratory distress, he however does have bilateral lower extremity pitting edema, there is questionable JVD elevation as well. Patient was started by his package drier in outpatient metolazone Thursday. At the current time we will give him metolazone in the a.m. and 30 minutes after that we will give him Lasix 80 mg IV x1. Will assess diuresis and then continue meds as indicated, in the past patient did require Bumex. Will consult cardiology 3 Nonoliguric acute on chronic kidney disease: Creatinine 2.27 with a creatinine of 1.37 approximately 1 year ago. At the current time patient however does appear to be volume overloaded. Will monitor renal function closely. Will consult nephrology dr. thomas. We will check a renal ultrasound. Will give the patient Lasix in the a.m. we will hold NISA inhibitor at the current time. 4. Hypertension: Resume patient's home medications aside from holding NISA inhibitors 5. Dyslipidemia: Continue statin 6. Diabetes mellitus: We will check hemoglobin A 1C, hold home meds, insulin sliding scale 7. History of systolic cardiomyopathy: Again we will check an echocardiogram, please see #2 8. History of third-degree AV block: Status post pacemaker. Patient currently paced rhythm. Monitor closely. 9 History of A. fib: Continue Eliquis, currently paced rhythm 10. DVT GI prophylaxis: Eliquis, no GI prophylaxis indicated Further treatment strategy will be implemented as per the clinical course Result Diagram: 12/19/18 0310 12/19/18 0310 Results 24hrs Laboratory Tests Test 12/19/18 03:10 White Blood Count 6.1 Red Blood Count 4.35 L Hemoglobin 12.9 L Hematocrit 37.9 L Mean Corpuscular Volume 87.1 Mean Corpuscular Hemoglobin 29.7 Mean Corpuscular Hemoglobin Concent 34.0 Red Cell Distribution Width 15.9 H Platelet Count 147 Mean Platelet Volume 12.4 H Immature Granulocytes % 0.300 Neutrophils % 73.1 Lymphocytes % 9.5 L Monocytes % 11.3 H Eosinophils % 5.1 Basophils % 0.7 Nucleated Red Blood Cells % 0.0 Immature Granulocytes # 0.020 Neutrophils # 4.4 Lymphocytes # 0.6 L Monocytes # 0.7 Eosinophils # 0.3 Basophils # 0.0 Nucleated Red Blood Cells # 0.0 Prothrombin Time 22.1 #H Prothrombin Time Ratio 1.7 INR International Normalized Ratio 1.93 Activated Partial Thromboplast Time 46.5 H Sodium Level 139 Potassium Level 3.0 L Chloride Level 92 L Carbon Dioxide Level 34 H Anion Gap 13 Blood Urea Nitrogen 67 H Creatinine 2.24 H Est Glomerular Filtrat Rate mL/min Glucose Level 99 Calcium Level 9.5 Total Bilirubin 0.5 Direct Bilirubin 0.00 Indirect Bilirubin 0.5 Aspartate Amino Transf (AST/SGOT) 23 Alanine Aminotransferase (ALT/SGPT) 15 Alkaline Phosphatase 197 H Troponin I 0.046 B-Type Natriuretic Peptide 19028 H Total Protein 7.5 Albumin 3.8 Globulin 3.70 H Albumin/Globulin Ratio 1.02 Lipase 178 HPI/ROS Admit Date/Time Admit Date/Time Hx of Present Illness Chief complaint: Left-sided chest pain on and off, lower extremity edema This is a 73-year-old man with a past medical history of coronary disease, diabetes mellitus, cardiomyopathy, status post pacemaker who presented with s ubsternal left-sided nonradiating nonexertional chest pain beginning a few hours prior to arrival. He states the chest pain has been intermittent over the last few hours but when it comes on lasts for about 10 minutes and then decreases in intensity. He states last week he was treated for CHF as an outpatient with oral furosemide and metolazone which caused significant diuresis and weight loss and improved his dyspnea that he had last week. He denies shortness of breath tonight, denies fevers, no cough, no headache or blurry vision, no vomiting or diarrhea. Patient did use one low-dose aspirin today prior to arrival. Allergies: NKDA Medications: See JAN ROS Const: As per HPI Eyes : No pain discharge or redness or change in visual acuity ENT: No pain, sore throat, congestion, congestion, dysphagia or discharge Respiratory: As per HPI Cardiovascular: As per HPI GI : no change in appetite, abdominal pain, nausea, vomiting, diarrhea, constipation, or change in the color his stool Genitourinary: No dysuria, hematuria, flank pain , discharge or CVA tenderness Musculoskeletal: No joint pain, back pain, neck pain, restricted range of motion in neck or joints Skin: No rash, bruising or hives Neuro: No headache, dizziness, syncope, seizure, focal weakness Endocrine: No polyuria, polydipsia, temperature intolerance Psych: No hallucination, depression, anxiety or suicidal ideation PMH/Family/Social Past Medical History hypertension, dyslipidemia, diabetes, CKD, CHF with systolic dysfunction, third-degree AV block status post pacemaker, cardiac arrest 01/2017, gout, history of A. fib Coded Allergies: No Known Allergy (Unverified , 06/03/14) Past Surgical History pacemaker, cabg Family History Significant Family History: no pertinent family hx Social History Alcohol Use: none Smoking Status: Never smoker Drug Use: none Exam/Review of Systems Vital Signs Vitals Vital Signs Date Temp Pulse Resp B/P (MAP) Pulse Ox O2 O2 Flow FiO2 Time Delivery Rate 12/19/18 74 16 105/74 96 Room Air 04:33 (84) 12/19/18 2 03:13 12/19/18 98.4 02:34 Exam Exam General: Patient is a pleasant male currently sitting upright in bed in no acute distress HEENT: Atraumatic, normocephalic. The pupils are equal, round and reactive. Extraocular motor are intact Neck: Supple with full range of motion. No rigidity or meningismus Chest: Nontender to palpation Lungs: Questionable rales at the bases, Heart: Normal S1-S2, Regular rhythm and rate., Questionable JVP Abdomen: Soft , nontender, nondistended , bowel sounds are present. No guarding no rebound tenderness , No masses or organomegaly. No costovertebral temporal angle mass Extremities: Bilateral lower extremity edema 2+ from the level of the feet to below the knee Neurologic: Normal mental status, speech normal, cranial nerves II through XII are intact, motor and sensory are intact, no focal weakness Additional Comments PROCEDURE: XR Chest. CLINICAL INDICATION: Abdominal pain TECHNIQUE: AP Portable chest. COMPARISON: CR CHEST 12/25/2017; CR CHEST 12/01/2017; CR CHEST 01/27/2017 FINDINGS: Left-sided single chamber pacemaker, sternotomy wires mediastinal clips are again seen. There is stable cardiac enlargement. The lung volumes are low with bibasilar atelectasis. No definite focal consolidation, pleural effusion or pneumothorax is seen. There are degenerative changes in the spine and right shoulder. IMPRESSION: Low lung volumes with bibasilar atelectasis. Cardiomegaly. Prior CABG. [facility] Physician Abundio Date Time Electronically viewed and signed by Krystal Monet Physician on 12/19/2018 05:27 CS/ CC: SHRAVAN MORRISON MD [id number] MARYJANE SPENCE Dec 19, 2018 06:09
--- NOTE | 2018-12-19 07:23 | NUR ---
Nurse Note Pt received from ED, placed on tele monitor, oriented to room and call light. Pt AOx4, on RA, denies chest pain at this time. Report given to LUIS Vyas.
[2018-12-19] MEDS ORDERED: METOLAZONE 2.5 MG TAB PO ONE (08:30)
[2018-12-19] MEDS ORDERED: POTASSIUM CHLORIDE 20 MEQ POWDER FOR ORAL SOLN PO ONE (08:30)
[2018-12-19] MEDS: FISH OIL 1,000 MG CAP PO SCH (08:37)
[2018-12-19] MEDS: APIXABAN 5 MG TABLET PO SCH ×2 (08:38→20:44)
[2018-12-19] MEDS: ASPIRIN (EC) 81 MG TAB PO SCH (08:38)
[2018-12-19] MEDS: FUROSEMIDE 40 MG INJ IV SCH (08:39)
[2018-12-19] MEDS ORDERED: ASPIRIN 81 MG TAB PO SCH (09:00)
[2018-12-19] MEDS ORDERED: OMEGA ACID ETHYL ESTERS PO SCH (09:00)
--- NOTE | 2018-12-19 10:21 | CONS ---
Assessment/Plan Cardiology NYHA: III Heart Failure Type: Acute Heart Failure Type: Systolic Assessment/Plan Hospital Course (Demo Recall) Cardiomyopathy - EF 25% has been told needs defibrillator by primary seo expert and has seen Dr. Kaba for electrophysiology would benefit from upgrade to Biventricular AICD CHF- recently diuresed but not euvolemic will continue IV lasix with monitoring of renal function and potassium Hypokalemia - being replaced chest pain - atypical troponin negative known CAD although no further testing at this time Consultation Date/Type/Reason Admit Date/Time Type of Consult Cardiology Date/Time of Note DATE: 12/19/18 TIME: 10:16 Hx of Present Illness Brown presents with burning sensation in chest while lying flat. Occurs from time to time lasting apx 10 minutes Was recently started on Metolazone and lost 20 lbs but still mildly short of breath. Respiratory: shortness of breath Cardiovascular: chest pain Past Medical History Home Meds Active Scripts Carvedilol* (Carvedilol*) 6.25 Mg Tablet, 6.25 MG PO BID for 30 Days, #60 TAB Prov:CAROLINE MARIE MD 12/30/17 Bumetanide* (Bumetanide*) 1 Mg Tablet, 2 MG PO BID DIURETICS for 30 Days, #60 TAB Prov:CAROLINE MARIE MD 12/30/17 Reported Medications Sitagliptin* (Januvia*) 50 Mg Tablet, 50 MG PO DAILY, #30 TAB 12/28/17 [place]-3 Acid Ethyl Esters (Lovaza) 1 Gm Capsule, 4 GM PO DAILY, CAP 12/28/17 Lisinopril* (Lisinopril*) 5 Mg Tablet, 5 MG PO DAILY, #30 TAB 12/28/17 Cholecalciferol* (Vitamin D3*) 1,000 Unit Tablet, 2000 UNIT PO DAILY, TAB 12/28/17 Atorvastatin* (Atorvastatin*) 80 Mg Tablet, 80 MG PO QHS, #30 TAB 12/28/17 Aspirin* (Aspirin* EC) 81 Mg Tablet.dr, 81 MG PO DAILY, TAB 12/28/17 Apixaban* (Eliquis*) 5 Mg Tablet, 5 MG PO BID, TAB 12/28/17 Allopurinol* (Allopurinol*) 100 Mg Tablet, 200 MG PO DAILY, TAB 12/28/17 Alfuzosin Hcl* (Alfuzosin Hcl*) 10 Mg Tab.er.24h, 10 MG PO DAILY, #30 TAB.SA 12/28/17 Medications Current Medications IV Flush (NS 3 ml) 3 ml PER PROTOCOL IV ; Start 12/19/18 at 06:00 Ondansetron HCl (Zofran Inj) 4 mg Q6H PRN IV NAUSEA/VOMITING; Start 12/19/18 at 06:00 Nitroglycerin (Nitroglycerin (Sl Tab) 0.4 Mg) 1 tab Q5M PRN SL .CHEST PAIN; Start 12/19/18 at 06:00 Acetaminophen (Tylenol Tab) 650 mg Q6H PRN PO .PAIN 1-3 OR TEMP; Start 12/19/18 at 06:00 Docusate Sodium (Colace) 100 mg Q12H PRN PO .CONSTIPATION; Start 12/19/18 at 06:00 Bisacodyl (Dulcolax) 5 mg DAILY PRN PO .CONSTIPATION; Start 12/19/18 at 06:00 Apixaban (Eliquis) 5 mg BID PO Last administered on 12/19/18at 08:38; Admin Dose 5 MG; Start 12/19/18 at 09:00 Aspirin (Halfprin) 81 mg DAILY PO ; Start 12/19/18 at 09:00 Atorvastatin Calcium (Lipitor) 80 mg QHS PO ; Start 12/19/18 at 21:00 Carvedilol (Coreg) 6.25 mg BID PO Last administered on 12/19/18at 08:38; Admin Dose 6.25 MG; Start 12/19/18 at 09:00 Furosemide (Lasix) 80 mg DAILY IV Last administered on 12/19/18at 08:39; Admin Dose 80 MG; Start 12/19/18 at 09:00 Mineral Oil (Eucerin Lotion) 1 applic BID TOP ; Start 12/19/18 at 09:00 Fish Oil (Fish Oil) 4,000 mg DAILY PO Last administered on 12/19/18at 08:37; Admin Dose 4,000 MG; Start 12/19/18 at 09:00 Allergies: Coded Allergies: No Known Allergy (Unverified , 06/03/14) Social History Alcohol Use: none Smoking Status: Never smoker Drug Use: none Exam/Review of Systems Vital Signs Vitals Vital Signs Date Temp Pulse Resp B/P (MAP) Pulse Ox O2 O2 Flow FiO2 Time Delivery Rate 1/27/19 97.4 71 18 109/65 97 Room Air 07:35 (80) 12/19/18 2 03:13 Exam Constitutional: alert Respiratory: crackles/rales Cardiovascular: edema (1+ chronic stasis changes), irregular rhythm Labs Result Diagram: 12/19/18 0310 12/19/18 0310 Results 24hrs Laboratory Tests Test 12/19/18 03:10 12/19/18 08:27 White Blood Count 6.1 Red Blood Count 4.35 L Hemoglobin 12.9 L Hematocrit 37.9 L Mean Corpuscular Volume 87.1 Mean Corpuscular Hemoglobin 29.7 Mean Corpuscular Hemoglobin Concent 34.0 Red Cell Distribution Width 15.9 H Platelet Count 147 Mean Platelet Volume 12.4 H Immature Granulocytes % 0.300 Neutrophils % 73.1 Lymphocytes % 9.5 L Monocytes % 11.3 H Eosinophils % 5.1 Basophils % 0.7 Nucleated Red Blood Cells % 0.0 Immature Granulocytes # 0.020 Neutrophils # 4.4 Lymphocytes # 0.6 L Monocytes # 0.7 Eosinophils # 0.3 Basophils # 0.0 Nucleated Red Blood Cells # 0.0 Prothrombin Time 22.1 #H Prothrombin Time Ratio 1.7 INR International Normalized Ratio 1.93 Activated Partial Thromboplast Time 46.5 H Sodium Level 139 Potassium Level 3.0 L Chloride Level 92 L Carbon Dioxide Level 34 H Anion Gap 13 Blood Urea Nitrogen 67 H Creatinine 2.24 H Est Glomerular Filtrat Rate mL/min Glucose Level 99 Calcium Level 9.5 Total Bilirubin 0.5 Direct Bilirubin 0.00 Indirect Bilirubin 0.5 Aspartate Amino Transf (AST/SGOT) 23 Alanine Aminotransferase (ALT/SGPT) 15 Alkaline Phosphatase 197 H Troponin I 0.046 0.039 B-Type Natriuretic Peptide 33512 H Total Protein 7.5 Albumin 3.8 Globulin 3.70 H Albumin/Globulin Ratio 1.02 Lipase 178 Creatine Kinase 26 Creatine Kinase Index 2.2 Creatinine Kinase MB (Mass) 0.57 Medications Medications Current Medications IV Flush (NS 3 ml) 3 ml PER PROTOCOL IV ; Start 12/19/18 at 06:00 Ondansetron HCl (Zofran Inj) 4 mg Q6H PRN IV NAUSEA/VOMITING; Start 12/19/18 at 06:00 Nitroglycerin (Nitroglycerin (Sl Tab) 0.4 Mg) 1 tab Q5M PRN SL .CHEST PAIN; Start 12/19/18 at 06:00 Acetaminophen (Tylenol Tab) 650 mg Q6H PRN PO .PAIN 1-3 OR TEMP; Start 12/19/18 at 06:00 Docusate Sodium (Colace) 100 mg Q12H PRN PO .CONSTIPATION; Start 12/19/18 at 06:00 Bisacodyl (Dulcolax) 5 mg DAILY PRN PO .CONSTIPATION; Start 12/19/18 at 06:00 Apixaban (Eliquis) 5 mg BID PO Last administered on 12/19/18at 08:38; Admin Dose 5 MG; Start 12/19/18 at 09:00 Aspirin (Halfprin) 81 mg DAILY PO ; Start 12/19/18 at 09:00 Atorvastatin Calcium (Lipitor) 80 mg QHS PO ; Start 12/19/18 at 21:00 Carvedilol (Coreg) 6.25 mg BID PO Last administered on 12/19/18at 08:38; Admin Dose 6.25 MG; Start 12/19/18 at 09:00 Furosemide (Lasix) 80 mg DAILY IV Last administered on 12/19/18at 08:39; Admin Dose 80 MG; Start 12/19/18 at 09:00 Mineral Oil (Eucerin Lotion) 1 applic BID TOP ; Start 12/19/18 at 09:00 Fish Oil (Fish Oil) 4,000 mg DAILY PO Last administered on 12/19/18at 08:37; Admin Dose 4,000 MG; Start 12/19/18 at 09:00 MAI WEI MD Dec 19, 2018 10:21
--- NOTE | 2018-12-19 10:53 | RADRPT ---
Echocardiogram Report Patient Name: GAYLA POOL Gender: Male Date: 1945 Study Date: 19-Dec-2018 Customs Broker: Gustavo Michael RDCS Location: 514-A Ref. Physician: MARYJANE SPENCE Quality: Technically Difficult Study Procedures: Transthoracic echocardiogram with complete 2D, M-Mode, and doppler examination. Indications: Chest Pain. 2D/M Mode Doppler Measurement Value Normal Ranges Measurement Value Normal Ranges LVIDd 2D 4.3 3.5 - 5.6 cm AV Peak Raudel 1.5 m/sec LVIDs 2D 3.9 2.1 - 4.1 cm AV Peak PG 9.0 mmHg LVPWd 2D 1.2 0.6 - 1.1 cm LVOT Peak Raudel 0.5 m/sec IVSd 2D 1.3 0.6 - 1.1 cm LVOT Peak PG 1.0 mmHg LA Dimen 2D 4.1 2.3 - 4.0 cm MV E Peak Raudel 0.6 m/sec MV A Peak Raudel 0.3 m/sec MV E/A 1.9 MV Decel Time 187 msec MV E/A 1.9 TR Peak Raudel 2.4 m/sec TR Peak PG 24.0 mmHg Findings Left Ventricle: Mild concentric left ventricular hypertrophy. Severe left ventricular systolic dysfunction. Ejection fraction is visually estimated at 20 %. Tissue Doppler/Mitral Doppler indices are consistent with impaired relaxation (Stage I diastolic dysfunction). Right Ventricle: Moderate right ventricular hypokinesis. Left Atrium: Upper limit of normal left atrial size. Right Atrium: There is moderate enlargement of right atrium. Mitral Valve: Normal appearance of the mitral valve. Mild to moderate mitral valve regurgitation. Aortic Valve: Normal appearance of the aortic valve. Trace to mild aortic valve regurgitation. Tricuspid Valve: Normal appearance of the tricuspid valve. Estimated peak PA systolic pressure 24 mmHg. There is mild tricuspid regurgitation. Pulmonic Valve: Normal pulmonic valve appearance. There is trace pulmonic regurgitation. Pericardium: Normal pericardium with no significant pericardial effusion. Aorta: Normal aortic root. IVC: The IVC is not well visualized. Conclusions Mild concentric left ventricular hypertrophy. Severe left ventricular systolic dysfunction. Ejection fraction is visually estimated at 20 %. Tissue Doppler/Mitral Doppler indices are consistent with impaired relaxation (Stage I diastolic dysfunction). Electronically Signed By: Talon Jordan 19-Dec-2018 10:53:04 -0800 Patient Name: GAYLA POOL Study Date: 19-Dec-2018 [id number]
[2018-12-19] MEDS: MINERAL OIL 240 ML LOT TOP SCH ×2 (11:59→20:54)
--- NOTE | 2018-12-19 12:07 | CONS ---
DATE OF ADMISSION: 12/19/2018 DATE OF CONSULTATION: 12/19/2018 NEPHROLOGY CONSULTATION REASON FOR CONSULTATION: Acute kidney injury. HISTORY OF PRESENT ILLNESS: This is a 73-year-old male with a past medical history of chronic kidney disease with previous baseline creatinine around 1.3 to 1.5 mg/dL, a history of systolic heart failu re, history of arrhythmia, status post pacemaker, history of cardiac arrest, history of AFib, history of hypertension, dyslipidemia who presents to [facility] with substernal left-side d chest pain. The patient describes the pain as nonexertional, nonradiating. It began a few hours p rior to arrival. The patient states the pain is lasting 10 minutes. The patient also reports recent ly that he has been placed on diuretic therapy for increasing shortness of breath and weight gain ove r the past week. He denies any fevers, chills, nausea, vomiting. Upon arrival to the emergency room , the patient had noted lower extremity edema. Laboratory data showed BUN 67, creatinine 2.2. Chest x-ray was obtained which showed evidence of cardiomegaly. The patient was placed on IV diuretic the rapy and admitted to med-surg. In terms of patient's renal history, the patient has underlying CKD. He sees a primary transportation maintenance operator at [facility]. The patient is unaware of his most recent baseline creatinine, but says it has been stable. He denies any hemoptysis, hematemesis, or hematochezia. PAST MEDICAL HISTORY: See above, history of CKD with recent baseline creatinine around 1.5 mg/Dl, hi story of hypertension, dyslipidemia, CHF, arrhythmia, gout. PAST SURGICAL HISTORY: Status post pacemaker placement, status post CABG. FAMILY HISTORY: No family history of kidney disease. SOCIAL HISTORY: Does not drink, smoke or do drugs. MEDICATIONS: The patient's medications have been reviewed. REVIEW OF SYSTEMS: A 14-point review of systems conducted. Pertinent positives stated in HPI, other reyes negative. PHYSICAL EXAMINATION: VITAL SIGNS: Blood pressure is 109/65, respiration 18, pulse 71, temperature 97.4. HEENT: Head is normocephalic. NECK: Supple. HEART: Regular rate. LUNGS: Show diminished breath sounds at the base. ABDOMEN: Soft, nontender to palpation without rebound or guarding. EXTREMITIES: Negative for clubbing, cyanosis. Positive edema, positive chronic erythema in lower ex tremity. NEUROLOGIC: No change in exam. MUSCULOSKELETAL: No joint effusion. LABORATORY DATA: From 12/19/2018 shows sodium 139, potassium 3.0, BUN 67, creatinine 2.24. White co unt 6.1, hemoglobin 12.9, platelet count is 147. IMAGING STUDIES: Reviewed. ASSESSMENT AND PLAN: This is a 73-year-old male who presents with: 1. Nonoliguric acute kidney injury with previous baseline creatinine of approximately 1.5 mg/dL. Et iology of acute kidney injury is concerning for possible cardiorenal syndrome versus progression of u nderlying CKD, possible cardiorenal syndrome type 2. Plan at this point is to check a UA with microa nalysis. Will check urine electrolytes. We will monitor I's and O's closely. The patient's recent 2D echo 1 year ago showed ejection fraction of 15% and dilated IVC which is consistent with cardioren al pathophysiology. Would otherwise continue supportive care, renally dose all meds. Will also try t o contact the patient's primary transportation maintenance operator to obtain a baseline renal function. The patient was on low dose NISA inhibitor at home, which may have also been contributing to underlying acute kidney inj ury. 2. Acute heart failure. The patient has noted edema of bilateral lower extremity, elevated JVD. Co ntinue diuretic regimen. Follow up renal function and electrolytes closely. Consider checking 2D ec ho. 3. Anemia. Monitor hemoglobin and hematocrit levels. 4. Hypokalemia. Replete with potassium chloride. Consider adding Aldactone to diuretic regimen. 5. Alkalosis. Etiology may be metabolic due to recent diuretic therapy, hypokalemia versus compensa tory. Continue to monitor closely. If patient does have a severe alkalemia, will consider Diamox. 6. Mineral bone disorder. Monitor calcium and phosphorus levels. 7. Chest pain. The patient is being ruled out for acute coronary syndrome. Check serial troponins, 2D echo. Continue medical management. 8. Hypertension. Blood pressure currently controlled. Continue to monitor. 9. History of arrhythmia, status post pacemaker. Continue to monitor. 10. History of atrial fibrillation. Continue medical management. 11. Diabetes. Continue current insulin regimen. 12. Dyslipidemia. Continue statin therapy. Thank you, Dr. Santos, for this interesting consult. It will be a pleasure to follow the patient wi th you throughout the hospital course. Dictated By: SHIKHA BELLA/GIORGIO Conf#: [id number] DID#: [id number] CC: MARYJANE SANTOS MD;*EndCC*
--- NOTE | 2018-12-19 14:52 | NUR ---
Low air bed: pt refusing low air bed this afternoon, explained the need to use specialty mattress in the prevention of pressure ulcers, pt currently with stage II sacrococcyx upon admission. pt verbalized understanding but still refused. Wound care consult pending. Charge nurse notified.
--- NOTE | 2018-12-19 15:23 | PN ---
Date/Time of Note Date/Time of Note DATE: 12/19/18 TIME: 15:16 Assessment/Plan VTE Prophylaxis SCD applied (from Nsg): Yes Pharmacological prophylaxis: other (eliquis) Lines/Catheters IV Catheter Type (from Nrsg): Saline Lock Assessment/Plan Assessment/Plan 73 yo man with CHF, pacemaker, CKD, diabetes presents with chest pain. # chest pain: - History sounds noncardiac. Burning pain, happens when leaning on his L side in bed. Likely muscle strain or sprain. - Cardiology consulted - Will check echo. - Trops <0.05, downtrending. # mild CHF exacerbation: - Outpatient started on metolazone for fluid overload in addition to his lasix. - Still a little volume up. Will continue IV diuresis. # Nonoliguric acute on chronic kidney disease: - Creatinine 2.27 with a creatinine of 1.37 approximately 1 year ago. - Dr Wood consulted. - Likely cardiorenal. Continue diuresis. # Hypertension: Resume patient's home medications aside from holding NISA inhibitors # Dyslipidemia: Continue statin # Diabetes mellitus: We will check hemoglobin A 1C, hold home meds, insulin sliding scale # History of systolic cardiomyopathy: Again we will check an echocardiogram # History of third-degree AV block: Status post pacemaker. Patient currently paced rhythm. Monitor closely. # History of A. fib: Continue Eliquis, currently paced rhythm # DVT GI prophylaxis: Eliquis, no GI prophylaxis indicated Result Diagram: 12/19/1830912/19/18309 Subjective 24 Hr Interval Summary Free Text/Dictation No acute overnight events. Patient feeling well. Reports breathing feels improved. Baseline weight is 210 lbs. Exam/Review of Systems Exam Vitals Vital Signs Date Temp Pulse Resp B/P (MAP) Pulse Ox O2 O2 Flow FiO2 Time Delivery Rate 12/19/18 72 12:48 12/19/18 97.3 18 93/59 (70) 96 Room Air 11:20 12/19/18 2 03:13 Exam General: Patient is a pleasant man currently sitting upright in bed in no acute distress HEENT: Atraumatic, normocephalic. The pupils are equal, round and reactive. Extraocular motor are intact Neck: Supple with full range of motion. No rigidity or meningismus Chest: Nontender to palpation Lungs: Clear to auscultation, no rales. Heart: Normal S1-S2, Regular rhythm and rate., Questionable JVP Abdomen: Soft , nontender, nondistended , bowel sounds are present. No guarding no rebound tenderness , No masses or organomegaly. No costovertebral temporal angle mass Extremities: Bilateral lower extremity edema 2+ from the level of the feet to below the knee Medications Medication Current Medications IV Flush (NS 3 ml) 3 ml PER PROTOCOL IV ; Start 12/19/18 at 06:00 Ondansetron HCl (Zofran Inj) 4 mg Q6H PRN IV NAUSEA/VOMITING; Start 12/19/18 at 06:00 Nitroglycerin (Nitroglycerin (Sl Tab) 0.4 Mg) 1 tab Q5M PRN SL .CHEST PAIN; Start 12/19/18 at 06:00 Acetaminophen (Tylenol Tab) 650 mg Q6H PRN PO .PAIN 1-3 OR TEMP; Start 12/19/18 at 06:00 Docusate Sodium (Colace) 100 mg Q12H PRN PO .CONSTIPATION; Start 12/19/18 at 06:00 Bisacodyl (Dulcolax) 5 mg DAILY PRN PO .CONSTIPATION; Start 12/19/18 at 06:00 Apixaban (Eliquis) 5 mg BID PO Last administered on 12/19/18at 08:38; Admin Dose 5 MG; Start 12/19/18 at 09:00 Aspirin (Halfprin) 81 mg DAILY PO ; Start 12/19/18 at 09:00 Atorvastatin Calcium (Lipitor) 80 mg QHS PO ; Start 12/19/18 at 21:00 Carvedilol (Coreg) 6.25 mg BID PO Last administered on 12/19/18at 08:38; Admin Dose 6.25 MG; Start 12/19/18 at 09:00 Furosemide (Lasix) 80 mg DAILY IV Last administered on 12/19/18at 08:39; Admin Dose 80 MG; Start 12/19/18 at 09:00 Mineral Oil (Eucerin Lotion) 1 applic BID TOP Last administered on 12/19/18at 11 :59; Admin Dose 1 APPLIC; Start 12/19/18 at 09:00 Fish Oil (Fish Oil) 4,000 mg DAILY PO Last administered on 12/19/18at 08:37; Admin Dose 4,000 MG; Start 12/19/18 at 09:00 GIORGIO DENNIS MD Dec 19, 2018 15:23
[2018-12-19] MEDS ORDERED: DEXTROSE 50% 50 ML SYRINGE IV PRN ×2 (16:00)
[2018-12-19] MEDS ORDERED: GLUCAGON 1 MG INJ IM PRN (16:00)
[2018-12-19] MEDS ORDERED: GLUCOSE GEL 15 GRAM TUBE PO PRN ×2 (16:00)
[2018-12-19] MEDS ORDERED: GLUCOSE GEL 15 GRAM TUBE BUCCAL PRN (16:00)
[2018-12-19] MEDS: INSULIN ASPART [NOVOLOG] 3 ML PEN SC SCH ×2 (17:12→20:48)
--- NOTE | 2018-12-19 17:58 | NUR ---
EOSS: pt resting on bed. pt refused specialty mattress, charge nurse aware. Pt is ambulatory with assistance. hourly rounding done per unit's protocol, VS stable. wound care consult pending. bed brakes engaged, side rails up, call light within reach, will endorse to date night caregiver nurse.
[2018-12-19] MEDS: ATORVASTATIN 80 MG TAB PO SCH (20:44)
[2018-12-20] VITALS (11 sets, daily range): BP systolic 101–120; BP diastolic 59–90; PULSE 57–88; RESP 16–18
[2018-12-20] MEDS: ACCU-CHEK XX SCH (02:00)
[2018-12-20] MEDS: INSULIN ASPART [NOVOLOG] 3 ML PEN SC SCH ×4 (07:48→20:37)
--- NOTE | 2018-12-20 07:51 | NUR ---
RN END OF SHIFT NOTE PATIENT ALERT AND ORIENTED X 4, DENIED PAIN, ABLE TO MAKE HIS NEEDS KNOWN. PATIENT HAD MULTIPLE MULTIFOCAL VENTRICULAR ABERRANCY ON THE MONITOR. DR. LORD CALLED AND LEFT A MESSAGE ON HIS ANSWERING SERVICE, WAITING FOR HIS CALL BACK. ENDORSED TO JUSTINA LAMA SHIFT RN.
[2018-12-20] MEDS ORDERED: POTASSIUM CHLORIDE (SR) 20 MEQ TAB PO STA (08:39)
[2018-12-20] MEDS: FUROSEMIDE 40 MG INJ IV SCH ×2 (09:00→09:19)
[2018-12-20] MEDS: ASPIRIN (EC) 81 MG TAB PO SCH ×2 (09:00→09:19)
--- NOTE | 2018-12-20 09:07 | PN ---
Date/Time of Note Date/Time of Note DATE: 12/20/18 TIME: 08:58 Assessment/Plan VTE Prophylaxis Risk score (from Nsg)>0 risk: 6 Pharmacological prophylaxis: apixaban Lines/Catheters IV Catheter Type (from Nrsg): Saline Lock Assessment/Plan Assessment/Plan 73 yo M who had presented with chest pain after recently being treated as outpt for CHF managed as follows: 1. Chest pain: resolved ? -per Cardio, atypical, ACS ruled out, no further testing at this time 2. CHF exacerbation, systolic and diastolic -was not optimally diuresed, ongoing IV diuresis 3. FRANCIS on CKD (Cardiorenal syndrome) -cr improved today even with diuresis -Nephrology folowing, appreciate input -ARB remains on hold. Renally dose all meds. Serial labs for trend 4. Severe CM with EF 20% -per cardiology, has been told needs defibrillator by primary hat lacer and has seen Dr. Kaba for electrophysiology, would benefit from upgrade to Biventricular AICD 5. PAF -continue coreg and Eliquis 6. HTN -good control on current regimen 7. Dyslipidemia with low HDL -continue high dose statin 8. PreDM: -A1C 6.0 9. Chronic NC anemia -stable / trend 10. Hypokalemia -replete Dispo: -continue diuresis, d/c once clinically improved Result Diagram: 12/20/18 0559 12/20/18 0559 Results 24hrs Laboratory Tests Test 12/19/18 13:30 12/19/18 14:20 12/19/18 17:01 12/19/18 20:35 Creatine Kinase 23 Creatine Kinase 2.0 Index Creatinine Kinase MB 0.47 (Mass) Troponin I 0.022 Urine Color YELLOW Urine Clarity CLEAR Urine pH 7.0 Urine Specific 1.009 Balfour Urine Ketones NEGATIVE Urine Nitrite NEGATIVE Urine Bilirubin NEGATIVE Urine Urobilinogen 2+ H Urine Leukocyte NEGATIVE Esterase Urine Hemoglobin NEGATIVE Urine Random 50.27 Creatinine Urine Random Sodium 94 H Urine 0.33 Protein/Creatinine Ratio Urine Glucose NEGATIVE Urine Total Protein NEGATIVE Bedside Glucose 133 186 Test 12/20/18 05:59 12/20/18 07:46 White Blood Count 5.9 Red Blood Count 4.00 L Hemoglobin 12.0 L Hematocrit 34.7 L Mean Corpuscular 86.8 Volume Mean Corpuscular 30.0 Hemoglobin Mean Corpuscular 34.6 Hemoglobin Concent Red Cell 15.9 H Distribution Width Platelet Count 137 L Mean Platelet Volume 12.3 H Immature 0.300 Granulocytes % Neutrophils % 75.5 Lymphocytes % 8.1 L Monocytes % 9.6 Eosinophils % 5.7 Basophils % 0.8 Nucleated Red Blood 0.0 Cells % Immature 0.020 Granulocytes # Neutrophils # 4.5 Lymphocytes # 0.5 L Monocytes # 0.6 Eosinophils # 0.3 Basophils # 0.1 Nucleated Red Blood 0.0 Cells # Sodium Level 140 Potassium Level 3.1 L Chloride Level 92 L Carbon Dioxide Level 32 H Anion Gap 16 H Blood Urea Nitrogen 69 H Creatinine 2.06 H Est Glomerular Filtrat Rate mL/min Glucose Level 96 Hemoglobin A1c 6.0 H Calcium Level 9.0 Phosphorus Level 3.7 Magnesium Level 2.1 Total Bilirubin 0.6 Direct Bilirubin 0.00 Indirect Bilirubin 0.6 Aspartate Amino 19 Transf (AST/SGOT) Alanine 17 Aminotransferase (AL T/SGPT) Alkaline Phosphatase 146 H Total Protein 6.7 Albumin 3.4 Globulin 3.30 H Albumin/Globulin 1.03 Ratio Triglycerides Level 68 Cholesterol Level 84 L LDL Cholesterol, 40 Calculated HDL Cholesterol 30 L Cholesterol/HDL 2.8 Ratio Thyroid Stimulating 2.080 Hormone (TSH) Bedside Glucose 101 Subjective 24 Hr Interval Summary Constitutional: improved Exam/Review of Systems Exam Vitals Vital Signs Date Temp Pulse Resp B/P (MAP) Pulse Ox O2 O2 Flow FiO2 Time Delivery Rate 12/20/18 Room Air 07:49 12/20/18 97.6 66 16 110/64 94 07:40 (79) 12/19/18 2 03:13 Intake and Output 12/19/18 12/19/18 12/20/18 1515:00 23:00 07:00 IntakeIntake Total 800 ml 450 ml OutputOutput Total 1650 ml BalanceBalance 800 ml -1200 ml Exam General: A&O x3, answering questions appropriately HEENT: NC/ AT. PERRL. EOM intact Neck: supple CVS: S1, S2, RRR. no murmurs. no pain on chest wall palpation Lungs: CTA b/l. no wheezing or rhonchi Abd: soft, nontender, +BS Ext: moving all extremities, skin: no rashes Results Results 24hrs Laboratory Tests Test 12/19/18 13:30 12/19/18 14:20 12/19/18 17:01 12/19/18 20:35 Creatine Kinase 23 Creatine Kinase 2.0 Index Creatinine Kinase MB 0.47 (Mass) Troponin I 0.022 Urine Color YELLOW Urine Clarity CLEAR Urine pH 7.0 Urine Specific 1.009 Balfour Urine Ketones NEGATIVE Urine Nitrite NEGATIVE Urine Bilirubin NEGATIVE Urine Urobilinogen 2+ H Urine Leukocyte NEGATIVE Esterase Urine Hemoglobin NEGATIVE Urine Random 50.27 Creatinine Urine Random Sodium 94 H Urine 0.33 Protein/Creatinine Ratio Urine Glucose NEGATIVE Urine Total Protein NEGATIVE Bedside Glucose 133 186 Test 12/20/18 05:59 12/20/18 07:46 White Blood Count 5.9 Red Blood Count 4.00 L Hemoglobin 12.0 L Hematocrit 34.7 L Mean Corpuscular 86.8 Volume Mean Corpuscular 30.0 Hemoglobin Mean Corpuscular 34.6 Hemoglobin Concent Red Cell 15.9 H Distribution Width Platelet Count 137 L Mean Platelet Volume 12.3 H Immature 0.300 Granulocytes % Neutrophils % 75.5 Lymphocytes % 8.1 L Monocytes % 9.6 Eosinophils % 5.7 Basophils % 0.8 Nucleated Red Blood 0.0 Cells % Immature 0.020 Granulocytes # Neutrophils # 4.5 Lymphocytes # 0.5 L Monocytes # 0.6 Eosinophils # 0.3 Basophils # 0.1 Nucleated Red Blood 0.0 Cells # Sodium Level 140 Potassium Level 3.1 L Chloride Level 92 L Carbon Dioxide Level 32 H Anion Gap 16 H Blood Urea Nitrogen 69 H Creatinine 2.06 H Est Glomerular Filtrat Rate mL/min Glucose Level 96 Hemoglobin A1c 6.0 H Calcium Level 9.0 Phosphorus Level 3.7 Magnesium Level 2.1 Total Bilirubin 0.6 Direct Bilirubin 0.00 Indirect Bilirubin 0.6 Aspartate Amino 19 Transf (AST/SGOT) Alanine 17 Aminotransferase (AL T/SGPT) Alkaline Phosphatase 146 H Total Protein 6.7 Albumin 3.4 Globulin 3.30 H Albumin/Globulin 1.03 Ratio Triglycerides Level 68 Cholesterol Level 84 L LDL Cholesterol, 40 Calculated HDL Cholesterol 30 L Cholesterol/HDL 2.8 Ratio Thyroid Stimulating 2.080 Hormone (TSH) Bedside Glucose 101 Medications Medication Current Medications IV Flush (NS 3 ml) 3 ml PER PROTOCOL IV ; Start 12/19/18 at 06:00 Ondansetron HCl (Zofran Inj) 4 mg Q6H PRN IV NAUSEA/VOMITING; Start 12/19/18 at 06:00 Nitroglycerin (Nitroglycerin (Sl Tab) 0.4 Mg) 1 tab Q5M PRN SL .CHEST PAIN; Start 12/19/18 at 06:00 Acetaminophen (Tylenol Tab) 650 mg Q6H PRN PO .PAIN 1-3 OR TEMP; Start 12/19/18 at 06:00 Docusate Sodium (Colace) 100 mg Q12H PRN PO .CONSTIPATION; Start 12/19/18 at 06:00 Bisacodyl (Dulcolax) 5 mg DAILY PRN PO .CONSTIPATION; Start 12/19/18 at 06:00 Apixaban (Eliquis) 5 mg BID PO Last administered on 12/19/18at 20:44; Admin Dose 5 MG; Start 12/19/18 at 09:00 Aspirin (Halfprin) 81 mg DAILY PO ; Start 12/19/18 at 09:00 Atorvastatin Calcium (Lipitor) 80 mg QHS PO Last administered on 12/19/18at 20:44; Admin Dose 80 MG; Start 12/19/18 at 21:00 Carvedilol (Coreg) 6.25 mg BID PO Last administered on 12/19/18at 08:38; Admin Dose 6.25 MG; Start 12/19/18 at 09:00 Furosemide (Lasix) 80 mg DAILY IV Last administered on 12/19/18at 08:39; Admin Dose 80 MG; Start 12/19/18 at 09:00 Mineral Oil (Eucerin Lotion) 1 applic BID TOP Last administered on 12/19/18at 20:54; Admin Dose 1 APPLIC; Start 12/19/18 at 09:00 Fish Oil (Fish Oil) 4,000 mg DAILY PO Last administered on 12/19/18at 08:37; Admin Dose 4,000 MG; Start 12/19/18 at 09:00 Diagnostic Test (Pha) (Accu-Chek) 1 ea 02 XX ; Start 12/20/18 at 02:00 Insulin Aspart (Novolog Insulin Pen) NOVOLOG *MODERATE* ALGORITHM WITH MEALS BE DTIME SC ; Start 12/19/18 at 17:55 Miscellaneous Information 1 ea NOTE XX ; Start 12/19/18 at 16:00 Glucose (Glutose) 15 gm Q15M PRN PO DECREASED GLUCOSE; Start 12/19/18 at 16:00 Glucose (Glutose) 22.5 gm Q15M PRN PO DECREASED GLUCOSE; Start 12/19/18 at 16:00 Dextrose (D50w Syringe) 25 ml Q15M PRN IV DECREASED GLUCOSE; Start 12/19/18 at 16:00 Dextrose (D50w Syringe) 50 ml Q15M PRN IV DECREASED GLUCOSE; Start 12/19/18 at 16:00 Glucagon (Glucagen) 1 mg Q15M PRN IM DECREASED GLUCOSE; Start 12/19/18 at 16:00 Glucose (Glutose) 15 gm Q15M PRN BUCCAL DECREASED GLUCOSE; Start 12/19/18 at 16:00 Acetazolamide (Diamox) 500 mg ONCE ONCE IV ; Start 12/20/18 at 10:00; Stop 12/20/18 at 10:01 ERIK SANTA Dec 20, 2018 09:07
[2018-12-20] MEDS: FISH OIL 1,000 MG CAP PO SCH (09:18)
[2018-12-20] MEDS: APIXABAN 5 MG TABLET PO SCH ×2 (09:19→20:36)
[2018-12-20] MEDS: MINERAL OIL 240 ML LOT TOP SCH ×2 (09:19→20:37)
--- NOTE | 2018-12-20 09:26 | PN ---
DATE: 12/20/2018 SUBJECTIVE: Patient stable, no events overnight. OBJECTIVE: VITAL SIGNS: Blood pressure is 110/64, respirations 16, pulse 66, temperature 97.6. HEENT: Head is normocephalic. NECK: Supple. HEART: Regular rate. LUNGS: Show diminished breath sounds at base. ABDOMEN: Soft, nontender to palpation without rebound or guarding. EXTREMITIES: Negative for clubbing, cyanosis, positive edema. DERMATOLOGIC: No rashes. MUSCULOSKELETAL: No joint effusion. NEUROLOGIC: No change in exam. MEDICATIONS: Reviewed. LABORATORY DATA: Shows white count 5.9, hemoglobin 10.0, platelet count 137. Sodium 140, potassium 3.1, BUN 69, creatinine 2.06, hemoglobin A1c 6.0. ASSESSMENT AND PLAN: 1. Nonoliguric acute kidney injury with previous baseline creatinine around 1.5 mg/dL. Etiology of acute kidney injury is concerning for cardiorenal syndrome. The patient's renal function has been im proving with diuretic therapy. The patient's urinalysis was reviewed, no evidence of active sediment . Renal ultrasound showed no evidence of obstruction but increased echogenicity is consistent with c hronic kidney disease. At this point, would continue current treatment plan. Continue diuretic ther apy. Continue supportive care, renally dose all meds, avoid nephrotoxins. 2. Acute systolic heart failure. The patient is currently decompensated on exam. Patient is status post Lasix. We will give the patient a course of Diamox as he has underlying alkalemia, monitor malcom ctrolytes, renal function closely. 3. Hypokalemia. We will replete potassium chloride, consider adding Aldactone for potassium sparing effect. 4. Alkalosis, likely due to diuretic therapy. 5. Hypokalemia. Will replete, will correct underlying alkalemia. Will consider adding Diamox. 6. Mineral bone disorder. Monitor calcium and phosphorus levels. 7. Chest pain. The patient is being ruled out acute coronary syndrome. Continue to check serial tr oponins. Continue 2D echo. 8. Hypertension. Continue current blood pressure regimen. 9. History of arrhythmia, status post pacemaker. 10. Atrial fibrillation. Continue medical management. 11. Diabetes. Continue current insulin regimen. 12. Dyslipidemia, continue statin therapy. Dictated By: SHIKHA BELLA/GIORGIO Conf#: [id number] DID#: [id number] CC: MARYJANE SPENCE MD;*[facility]*
[2018-12-20] MEDS ORDERED: ACETAZOLAMIDE 500 MG INJ IV ONE (10:00)
--- NOTE | 2018-12-20 10:00 | NUR ---
NURSE ASSESSMENT NOTE A/OX4, JULIO AT BEDSIDE AND HELPS CARE FOR PT, DENIES PAIN, STATES HE WILL GO HOME TODAY REGARDLESS OF IF MD DISCHARGES HIM OR NOT, REFUSES SOME MEDS, COOPERATIVE OVERALL, UP TO CHAIR C ASSIST, DEMONSTRATES USE OF CALL LIGHT, CONTINUE TO MONITOR
--- NOTE | 2018-12-20 10:04 | NUR ---
PT Evaluation note: S: HPI per MD note: 73-year-old man with multiple cardiac medical conditions presents with substernal left-sided nonradiating nonexertional chest pain beginning a few hours prior to arrival. He states the chest pain has been intermittent over the last few hours but when it comes on lasts for about 10 minutes and then decreases in intensity. He states last week he was treated for CHF as an outpatient with oral furosemide which caused significant diuresis and weight loss and improved his dyspnea that he had last week. He denies shortness of breath tonight, denies fevers, no cough, no headache or blurry vision, no vomiting or diarrhea. Patient did use one low-dose aspirin today prior to arrival. O: MD order received for PT consult. Pt agreeable to participate with clearance from RN in charge Marisabel to proceed. "I'm ready to go home" per pt. PREC: fall prec. PLOF: patient was independent with ADL, occasionally need assist to lift legs back in bed when not feeling good, independent with ambulation using SPC indoor and outdoor. Lives with and son in single story house with 3 steps to enter and has pole to hold on. Pt able to take steps without problem. CLOF: Patient SBA for supine to sit with HOB partially elevated, min assist to lift legs BTB. CGA/SBA on transfers and ambulation using FWW and tolerated about 100 feet gait distance with steady balance at slow pacing with some c/o fatigue. Noted to have heavy lean on walker for support and per pt will not be stable yet to use SPC. Pt educ on safety/fall preventions and advised to use FWW for mobility and have family to hold him on stairs for safety upon DC today. Pt verbalized understanding A: Recommend HHPT f/u for more strengthening to improve mobility with least AD as possible to get back to PLOF. P: Cont PT and progress as able. Initiate stairs training whenever possible.
[2018-12-20] MEDS: DOCUSATE SODIUM 100 MG CAP PO SCH (12:45)
--- NOTE | 2018-12-20 14:20 | NUR ---
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
--- NOTE | 2018-12-20 18:35 | NUR ---
END OF SHIFT A/OX4, DENIES PAIN, COOPERATIVE, NO C/O PAIN, NO STATEMENTS TO LEAVE AMA AT THIS TIME, RESTING IN CHAIR EATING DINNER, DEMONSTRATES USE OF CALL LIGHT
[2018-12-20] MEDS: ATORVASTATIN 80 MG TAB PO SCH (20:36)
[2018-12-21] VITALS (9 sets, daily range): BP systolic 101–115; BP diastolic 57–72; PULSE 66–89; RESP 16–18
[2018-12-21] MEDS: ACCU-CHEK XX SCH (01:33)
[2018-12-21] MEDS: DOCUSATE SODIUM 100 MG CAP PO SCH ×2 (06:00→17:22)
--- NOTE | 2018-12-21 07:34 | NUR ---
RN END OF SHIFT NOTE PATIENT ALERT AND ORIENTED X 4, DENIED PAIN, ABLE TO MAKE HIS NEEDS KNOWN. OUT OF BED TO CHAIR WITH ASSISTANCE. PATIENT REFUSED LASIX YESTERDAY EVENING, WITH PLUS 4 BILATERAL LOWER EXTREMITY EDEMA, DR. LARA AWARE. BED IN THE LOWEST POSITION WITH BRAKES ENGAGED. BED ALARM AND PERSONAL ITEMS WITHIN EASY REACH. ENDORSED TO DAY SHIFT RN.
[2018-12-21] MEDS: INSULIN ASPART [NOVOLOG] 3 ML PEN SC SCH ×3 (07:53→17:24)
[2018-12-21] MEDS ORDERED: POTASSIUM CHLORIDE (SR) 20 MEQ TAB PO STA (08:07)
[2018-12-21] MEDS: ASPIRIN (EC) 81 MG TAB PO SCH (08:20)
[2018-12-21] MEDS: APIXABAN 5 MG TABLET PO SCH (08:21)
[2018-12-21] MEDS: FISH OIL 1,000 MG CAP PO SCH (08:21)
[2018-12-21] MEDS: MINERAL OIL 240 ML LOT TOP SCH (08:21)
[2018-12-21] MEDS: FUROSEMIDE 40 MG INJ IV SCH (08:22)
--- NOTE | 2018-12-21 08:42 | PN ---
DATE: 12/21/2018 SUBJECTIVE: The patient is stable, no events overnight. OBJECTIVE: VITAL SIGNS: Blood pressure is 115/66, pulse 66, respirations 18, temperature 98.3. HEENT: Head is normocephalic. NECK: Supple. HEART: Regular rate. LUNGS: Show diminished breath sounds at the base. ABDOMEN: Soft, nontender to palpation without rebound or guarding. EXTREMITIES: Negative for clubbing, cyanosis. Positive edema. DERMATOLOGIC: No rashes. MUSCULOSKELETAL: No joint effusion. NEUROLOGIC: No change in exam. MEDICATIONS: Reviewed. LABORATORY DATA: Shows sodium 137, potassium 3.0, BUN 69, creatinine 1.85. White count 5.5, hemoglo bin 12.1, platelet count is 138. ASSESSMENT AND PLAN: 1. Nonoliguric acute kidney injury with previous baseline creatinine of 1.5 mg/dL. Etiology of acut e kidney injury is secondary to cardiorenal syndrome. Renal function has been slowly improving with diuretic therapy. At this point, continue current treatment plan, supportive care, renally dose all medicines. 2. Acute systolic heart failure. The patient is status post Diamox yesterday due to alkalemia. Cur rently on IV Lasix. We will continue to monitor electrolytes and renal function closely. 3. Hypokalemia. Continue to monitor with potassium chloride, consider starting the patient on Aldac tone. 4. Alkalosis due to diuretic therapy, improving. The patient is status post Diamox. 5. Mineral bone disorder, monitor calcium and phosphorus levels. 6. Chest pain. The patient has been ruled out for acute coronary syndrome. 7. Hypertension. Continue current blood pressure regimen. 8. History of arrhythmia, status post pacemaker. 9. Dysphagia. Continue medical management. 10. Diabetes. Continue current insulin regimen. 11. Dyslipidemia. Continue statin therapy. Dictated By: SHIKHA LARA DO NR/NTS Conf#: [id number] DID#: [id number] CC: ERIK SANTA MD; MARYJANE SPENCE MD; MAI WEI MD;*[facility]*
--- NOTE | 2018-12-21 12:25 | NUR ---
WOUND CONSULT: 73-year-old male with history of symptomatic bradycardia s/p PPM presented with ongoing chest pain to rule out ACS. Patient is currently awake and alert sitting in a chair with PT and his at the bedside. He answers questions appropriately; patient kevin out of the chair quickly appeared somewhat temporarily unsteady. Currently on room air. Wound consultation for documented stage 2 Pressure injury to the sacrococcyx ASSESSMENT: - Bilateral right and left ischium blanchable redness; most likely due to prolonged sitting in chair. - Sacrococcyx is intact and free of pressure injury on exam. There is mild diffuse red discoloration which easily blanches RECOMMENDATIONS: - Continue inspecting high risk pressure areas every shift and apply foam border dressing to sacrococcyx -Encourage repositioning while in chair - Reposition every 2 hours while in bed. - Float heels off bed with pillows. - Keep HOB >30 degrees unless medically contraindicated Viki Hilliard, MSN, RN, CCRN, C
[2018-12-21] MEDS ORDERED: SPIRONOLACTONE 25 MG TAB PO SCH (13:30)
--- NOTE | 2018-12-21 13:37 | PN ---
Date/Time of Note Date/Time of Note DATE: 12/21/18 TIME: 13:24 Assessment/Plan VTE Prophylaxis Risk score (from Ns)>0 risk: 6 SCD applied (from Ns): No SCD contraindicated: patient refusal Pharmacological prophylaxis: apixaban Lines/Catheters IV C[facility]from [facility] [place] Assessment/Plan Assessment/Plan Subjective: patient says he's still doing ok and still demanding to be discharged Objective : General: A&O x3, answering questions appropriately, elderly, obese HEENT: NC/ AT. PERRL. EOM intact Neck: supple CVS: S1, S2, RRR. no murmurs. no pain on chest wall palpation Lungs: CTA b/l. no wheezing or rhonchi Abd: soft, nontender, +BS Ext: moving all extremities, severe chronic saima LE edema, pitting to knees, ?lymphedema assessment and plan: 73 yo M who had presented with chest pain after recently being treated as outpt for CHF managed as follows: 1. Chest pain: resolved -per Cardio, atypical, ACS ruled out, no further testing at this time 2. CHF exacerbation, systolic and diastolic -was not optimally diuresed, ongoing IV diuresis 3. FRANCIS on CKD (Cardiorenal syndrome) -cr continues to with diuresis -Nephrology folowing, appreciate input -ARB remains on hold. Renally dose all meds. Serial labs for trend -added aldactone per Nephro recs 4. Severe CM with EF 20% -per cardiology, has been told needs defibrillator by primary sports manager and has seen Dr. Kaba for electrophysiology, would benefit from upgrade to Biventricular AICD 5. PAF -continue coreg and Eliquis 6. HTN -good control on current regimen 7. Dyslipidemia with low HDL -continue high dose statin 8. PreDM: -A1C 6.0 9. Chronic NC anemia -stable / trend 10. Hypokalemia -replete 11. Chronic Lymphedema -patient is non compliant with elevating his feet -He also tells me we will never be able to get his legs down to normal Dispo: -continue diuresis, d/c once cleared by cardiology Result Diagram: 12/21/18 0647 12/21/18 0647 Results 24hrs Laboratory Tests Test 12/20/18 14:22 12/20/18 17:22 12/20/18 20:34 12/21/18 06:47 Sodium Level 137 137 Potassium Level 3.7 3.0 L Chloride Level 91 L 95 L Carbon Dioxide Level 28 31 Anion Gap 18 H 11 # Blood Urea Nitrogen 69 H 69 H Creatinine 1.98 H 1.85 H Est Glomerular Filtrat Rate mL/min Glucose Level 142 # 105 Calcium Level 9.2 9.2 Bedside Glucose 144 160 White Blood Count 5.5 Red Blood Count 4.02 L Hemoglobin 12.1 L Hematocrit 34.9 L Mean Corpuscular 86.8 Volume Mean Corpuscular 30.1 Hemoglobin Mean Corpuscular 34.7 Hemoglobin Concent Red Cell 15.7 H Distribution Width Platelet Count 138 L Mean Platelet Volume 12.0 H Immature 0.400 Granulocytes % Neutrophils % 75.4 Lymphocytes % 8.1 L Monocytes % 10.1 Eosinophils % 5.5 Basophils % 0.5 Nucleated Red Blood 0.0 Cells % Immature 0.020 Granulocytes # Neutrophils # 4.1 Lymphocytes # 0.4 L Monocytes # 0.6 Eosinophils # 0.3 Basophils # 0.0 Nucleated Red Blood 0.0 Cells # Phosphorus Level 3.6 Magnesium Level 2.3 Test 12/21/18 07:53 12/21/18 11:26 Bedside Glucose 94 160 Exam/Review of Systems Exam Vitals Vital Signs Date Temp Pulse Resp B/P (MAP) Pulse Ox O2 O2 Flow FiO2 Time Delivery Rate 12/21/18 89 12:19 12/21/18 97.5 16 102/57 96 11:32 (72) 12/20/18 Room Air 17:16 12/19/18 2 03:13 Intake and Output 12/20/18 12/20/18 12/21/18 1515:00 23:00 07:00 IntakeIntake Total 1400 ml 300 ml OutputOutput Total 1850 ml 800 ml BalanceBalance -450 ml -500 ml Results Results 24hrs Laboratory Tests Test 12/20/18 14:22 12/20/18 17:22 12/20/18 20:34 12/21/18 06:47 Sodium Level 137 137 Potassium Level 3.7 3.0 L Chloride Level 91 L 95 L Carbon Dioxide Level 28 31 Anion Gap 18 H 11 # Blood Urea Nitrogen 69 H 69 H Creatinine 1.98 H 1.85 H Est Glomerular Filtrat Rate mL/min Glucose Level 142 # 105 Calcium Level 9.2 9.2 Bedside Glucose 144 160 White Blood Count 5.5 Red Blood Count 4.02 L Hemoglobin 12.1 L Hematocrit 34.9 L Mean Corpuscular 86.8 Volume Mean Corpuscular 30.1 Hemoglobin Mean Corpuscular 34.7 Hemoglobin Concent Red Cell 15.7 H Distribution Width Platelet Count 138 L Mean Platelet Volume 12.0 H Immature 0.400 Granulocytes % Neutrophils % 75.4 Lymphocytes % 8.1 L Monocytes % 10.1 Eosinophils % 5.5 Basophils % 0.5 Nucleated Red Blood 0.0 Cells % Immature 0.020 Granulocytes # Neutrophils # 4.1 Lymphocytes # 0.4 L Monocytes # 0.6 Eosinophils # 0.3 Basophils # 0.0 Nucleated Red Blood 0.0 Cells # Phosphorus Level 3.6 Magnesium Level 2.3 Test 12/21/18 07:53 12/21/18 11:26 Bedside Glucose 94 160 Medications Medication Current Medications IV Flush (NS 3 ml) 3 ml PER PROTOCOL IV ; Start 12/19/18 at 06:00 Ondansetron HCl (Zofran Inj) 4 mg Q6H PRN IV NAUSEA/VOMITING; Start 12/19/18 at 06:00 Nitroglycerin (Nitroglycerin (Sl Tab) 0.4 Mg) 1 tab Q5M PRN SL .CHEST PAIN; Start 12/19/18 at 06:00 Acetaminophen (Tylenol Tab) 650 mg Q6H PRN PO .PAIN 1-3 OR TEMP; Start 12/19/18 at 06:00 Bisacodyl (Dulcolax) 5 mg DAILY PRN PO .CONSTIPATION; Start 12/19/18 at 06:00 Apixaban (Eliquis) 5 mg BID PO Last administered on 12/21/18at 08:21; Admin Dose 5 MG; Start 12/19/18 at 09:00 Aspirin (Halfprin) 81 mg DAILY PO Last administered on 12/21/18at 08:20; Admin Dose 81 MG; Start 12/19/18 at 09:00 Atorvastatin Calcium (Lipitor) 80 mg QHS PO Last administered on 12/20/18at 20:36; Admin Dose 80 MG; Start 12/19/18 at 21:00 Carvedilol (Coreg) 6.25 mg BID PO Last administered on 12/21/18at 08:20; Admin Dose 6.25 MG; Start 12/19/18 at 09:00 Furosemide (Lasix) 80 mg DAILY IV Last administered on 12/21/18at 08:22; Admin Dose 80 MG; Start 12/19/18 at 09:00 Mineral Oil (Eucerin Lotion) 1 applic BID TOP Last administered on 12/21/18at 08:21; Admin Dose 1 APPLIC; Start 12/19/18 at 09:00 Fish Oil (Fish Oil) 4,000 mg DAILY PO Last administered on 12/21/18at 08:21; Admin Dose 4,000 MG; Start 12/19/18 at 09:00 Diagnostic Test (Pha) (Accu-Chek) 1 ea 02 XX ; Start 12/20/18 at 02:00 Insulin Aspart (Novolog Insulin Pen) NOVOLOG *MODERATE* ALGORITHM WITH MEALS BEDTIME SC Last administered on 12/21/18at 11:38; Admin Dose 2 UNIT; Start 12/19/18 at 17:55 Miscellaneous Information 1 ea NOTE XX ; Start 12/19/18 at 16:00 Glucose (Glutose) 15 gm Q15M PRN PO DECREASED GLUCOSE; Start 12/19/18 at 16:00 Glucose (Glutose) 22.5 gm Q15M PRN PO DECREASED GLUCOSE; Start 12/19/18 at 16:00 Dextrose (D50w Syringe) 25 ml Q15M PRN IV DECREASED GLUCOSE; Start 12/19/18 at 16:00 Dextrose (D50w Syringe) 50 ml Q15M PRN IV DECREASED GLUCOSE; Start 12/19/18 at 16:00 Glucagon (Glucagen) 1 mg Q15M PRN IM DECREASED GLUCOSE; Start 12/19/18 at 16:00 Glucose (Glutose) 15 gm Q15M PRN BUCCAL DECREASED GLUCOSE; Start 12/19/18 at 16:00 Docusate Sodium (Colace) 100 mg Q12H PO ; Start 12/20/18 at 18:00 ERIK SANTA Dec 21, 2018 13:34
--- NOTE | 2018-12-21 16:08 | CONS ---
Assessment/Plan Cardiology NYHA: III Heart Failure Type: Acute Heart Failure Type: Systolic Assessment/Plan Hospital Course (Demo Recall) Acute decompensated systolic congestive heart failure Coronary artery disease Severe cardia myopathy Acute kidney injury with history of CKD Assessment/Plan (Daily) -Breathing is back to his baseline. Denies chest pain, palpitations or dizziness. Blood pressure trend overall stable. Could switch over to patient's home regimen of Bumex if okay by nephrology with DC planning. Patient does have outpatient cardiology follow-up and agree with consideration for upgrade to biventricular ICD -Ideally maintain potassium above 4.0 and magnesium above 2.0. Consultation Date/Type/Reason Admit Date/Time Dec 19, 2018 at 03:26 Initial Consult Date Type of Consult Cardiology Date/Time of Note DATE: 12/21/18 TIME: 16:06 24 HR Interval Summary Free Text/Dictation Shortness of breath is at baseline, denies further chest pain, palpitations or dizziness Exam/Review of Systems Vital Signs Vitals Vital Signs Date Temp Pulse Resp B/P (MAP) Pulse Ox O2 O2 Flow FiO2 Time Delivery Rate 12/21/18 97.8 89 17 101/72 97 15:33 (82) 12/20/18 Room Air 17:16 12/19/18 2 03:13 Intake and Output 12/20/18 12/20/18 12/21/18 1515:00 23:00 07:00 IntakeIntake Total 1400 ml 300 ml OutputOutput Total 1850 ml 800 ml BalanceBalance -450 ml -500 ml Exam Exam No dyspnea with speaking, no apparent distress Constitutional: alert, oriented Head: normocephalic Respiratory: other (Coarse breath sounds bilaterally, no wheezing) Cardiovascular: regular rate and rhythm (Occasional irregularities) Gastrointestinal: soft, non-tender, ascites, bowel sounds Extremities: edema Labs Result Diagram: 12/21/18 0647 12/21/18 0647 Results 24hrs Laboratory Tests Test 12/20/18 17:22 12/20/18 20:34 12/21/18 06:47 12/21/18 07:53 Bedside Glucose 144 160 94 White Blood Count 5.5 Red Blood Count 4.02 L Hemoglobin 12.1 L Hematocrit 34.9 L Mean Corpuscular 86.8 Volume Mean Corpuscular 30.1 Hemoglobin Mean Corpuscular 34.7 Hemoglobin Concent Red Cell 15.7 H Distribution Width Platelet Count 138 L Mean Platelet Volume 12.0 H Immature 0.400 Granulocytes % Neutrophils % 75.4 Lymphocytes % 8.1 L Monocytes % 10.1 Eosinophils % 5.5 Basophils % 0.5 Nucleated Red Blood 0.0 Cells % Immature 0.020 Granulocytes # Neutrophils # 4.1 Lymphocytes # 0.4 L Monocytes # 0.6 Eosinophils # 0.3 Basophils # 0.0 Nucleated Red Blood 0.0 Cells # Sodium Level 137 Potassium Level 3.0 L Chloride Level 95 L Carbon Dioxide Level 31 Anion Gap 11 # Blood Urea Nitrogen 69 H Creatinine 1.85 H Est Glomerular Filtrat Rate mL/min Glucose Level 105 Calcium Level 9.2 Phosphorus Level 3.6 Magnesium Level 2.3 Test 12/21/18 11:26 Bedside Glucose 160 Medications Medications Current Medications IV Flush (NS 3 ml) 3 ml PER PROTOCOL IV ; Start 12/19/18 at 06:00 Ondansetron HCl (Zofran Inj) 4 mg Q6H PRN IV NAUSEA/VOMITING; Start 12/19/18 at 06:00 Nitroglycerin (Nitroglycerin (Sl Tab) 0.4 Mg) 1 tab Q5M PRN SL .CHEST PAIN; Start 12/19/18 at 06:00 Acetaminophen (Tylenol Tab) 650 mg Q6H PRN PO .PAIN 1-3 OR TEMP; Start 12/19/18 at 06:00 Bisacodyl (Dulcolax) 5 mg DAILY PRN PO .CONSTIPATION; Start 12/19/18 at 06:00 Apixaban (Eliquis) 5 mg BID PO Last administered on 12/21/18at 08:21; Admin Dose 5 MG; Start 12/19/18 at 09:00 Aspirin (Halfprin) 81 mg DAILY PO Last administered on 12/21/18 08:20; Admin Dose 81 MG; Start 12/19/18 at 09:00 Atorvastatin Calcium (Lipitor) 80 mg QHS PO Last administered on 12/20/18at 20:36; Admin Dose 80 MG; Start 12/19/18 at 21:00 Carvedilol (Coreg) 6.25 mg BID PO Last administered on 12/21/18 08:20; Admin Dose 6.25 MG; Start 12/19/18 at 09:00 Furosemide (Lasix) 80 mg DAILY IV Last administered on 12/21/18at 08:22; Admin Dose 80 MG; Start 12/19/18 at 09:00 Mineral Oil (Eucerin Lotion) 1 applic BID TOP Last administered on 12/21/18at 08:21; Admin Dose 1 APPLIC; Start 12/19/18 at 09:00 Fish Oil (Fish Oil) 4,000 mg DAILY PO Last administered on 12/21/18at 08:21; Admin Dose 4,000 MG; Start 12/19/18 at 09:00 Diagnostic Test (Pha) (Accu-Chek) 1 ea 02 XX ; Start 12/20/18 at 02:00 Insulin Aspart (Novolog Insulin Pen) NOVOLOG *MODERATE* ALGORITHM WITH MEALS BEDTIME SC Last administered on 12/21/18at 11:38; Admin Dose 2 UNIT; Start 12/19/18 at 17:55 Miscellaneous Information 1 ea NOTE XX ; Start 12/19/18 at 16:00 Glucose (Glutose) 15 gm Q15M PRN PO DECREASED GLUCOSE; Start 12/19/18 at 16:00 Glucose (Glutose) 22.5 gm Q15M PRN PO DECREASED GLUCOSE; Start 12/19/18 at 16:00 Dextrose (D50w Syringe) 25 ml Q15M PRN IV DECREASED GLUCOSE; Start 12/19/18 at 16:00 Dextrose (D50w Syringe) 50 ml Q15M PRN IV DECREASED GLUCOSE; Start 12/19/18 at 16:00 Glucagon (Glucagen) 1 mg Q15M PRN IM DECREASED GLUCOSE; Start 12/19/18 at 16:00 Glucose (Glutose) 15 gm Q15M PRN BUCCAL DECREASED GLUCOSE; Start 12/19/18 at 16:00 Docusate Sodium (Colace) 100 mg Q12H PO ; Start 12/20/18 at 18:00 Spironolactone (Aldactone) 25 mg DAILY PO Last administered on 12/21/18at 13:47; Admin Dose 25 MG; Start 12/21/18 at 13:30 Cheng Hay DO Dec 21, 2018 16:08
--- NOTE | 2018-12-21 16:09 | NUR ---
Nurses notes: Dr Hay called and stated pt looks good and cleared to go home. Texted Dr Arce to notify.
[2018-12-21] MEDS ORDERED: SPIR25TA PO (17:15)
--- NOTE | 2018-12-21 17:18 | PDOCDIS ---
Discharge Instructions DIAGNOSIS Discharge Diagnosis acute chf exacerbation CONDITION [id number] Patient Condition: [id number] Stable HOME CARE INSTRUCTIONS: [id number] Diet Instructions: [id number] y Rest between Activity FOLLOW UP/APPOINTMENTS Follow-up Plan 1. Dr. Kaba for electrophysiology, would benefit from upgrade to Biventricular AICD 2. Dr Michelle for Nephrology followup and PCP for continued resolution of symptoms . ERIK SANTA Dec 21, 2018 17:18
--- NOTE | 2019-01-02 17:47 | DS ---
Date/Time of Note Date/Time of Note DATE: 01/02/19 TIME: 17:47 Discharge Summary Admission/Discharge Info Admit Date/Time Dec 19, 2018 at 03:26 Discharge Date/Time Dec 21, 2018 at 18:45 Discharge Diagnosis acute chf exacerbation Home Meds Active Scripts Spironolactone* (Aldactone*) 25 Mg Tablet, 25 MG PO DAILY, #30 TAB Prov:ERIK SANTA 12/21/18 Carvedilol* (Carvedilol*) 6.25 Mg Tablet, 6.25 MG PO BID for 30 Days, #60 TAB Prov:CAROLINE MARIE MD 12/30/17 Bumetanide* (Bumetanide*) 1 Mg Tablet, 2 MG PO BID DIURETICS for 30 Days, #60 TAB Prov:CAROLINE MARIE MD 12/30/17 Reported Medications Sitagliptin* (Januvia*) 50 Mg Tablet, 50 MG PO DAILY, #30 TAB 12/28/17 [place]-3 Acid Ethyl Esters (Lovaza) 1 Gm Capsule, 4 GM PO DAILY, CAP 12/28/17 Cholecalciferol* (Vitamin D3*) 1,000 Unit Tablet, 2000 UNIT PO DAILY, TAB 12/28/17 Atorvastatin* (Atorvastatin*) 80 Mg Tablet, 80 MG PO QHS, #30 TAB 12/28/17 Aspirin* (Aspirin* EC) 81 Mg Tablet.dr, 81 MG PO DAILY, TAB 12/28/17 Apixaban* (Eliquis*) 5 Mg Tablet, 5 MG PO BID, TAB 12/28/17 Allopurinol* (Allopurinol*) 100 Mg Tablet, 200 MG PO DAILY, TAB 12/28/17 Alfuzosin Hcl* (Alfuzosin Hcl*) 10 Mg Tab.er.24h, 10 MG PO DAILY, #30 TAB.SA 12/28/17 Follow-up Plan 1. Dr. Kaba for electrophysiology, would benefit from upgrade to Biventricular AICD 2. Dr Michelle for Nephrology followup and PCP for continued resolution of symptoms . Primary Care Provider Not On Staff Doctor Time spent on discharge: > 30 minutes ERIK SANTA Jan 02, 2019 17:47
== END 2018-12-21 18:45 | disposition home health service (06) | DRG 291 ==
LOC: E/R 02:28 → TEL 03:26
PROVIDERS: ADMIT Family Medicine; ATTEND Family Medicine
DX: I13.0 Hypertensive heart and chronic kidney disease with heart failure and stage 1 through stage 4 chronic kidney disease, or unspecified chronic kidney disease (principal); I50.43 Acute on chronic combined systolic (congestive) and diastolic (congestive) heart failure; I44.2 Atrioventricular block, complete; N17.9 Acute kidney failure, unspecified; E87.3 Alkalosis; E11.22 Type 2 diabetes mellitus with diabetic chronic kidney disease; Z86.74 Personal history of sudden cardiac arrest; I48.0 Paroxysmal atrial fibrillation; D63.1 Anemia in chronic kidney disease; I42.9 Cardiomyopathy, unspecified; Z95.1 Presence of aortocoronary bypass graft; R07.9 Chest pain, unspecified; N18.9 Chronic kidney disease, unspecified; I25.10 Atherosclerotic heart disease of native coronary artery without angina pectoris; E78.5 Hyperlipidemia, unspecified; E87.6 Hypokalemia; Z79.01 Long term (current) use of anticoagulants; Z79.4 Long term (current) use of insulin; Z79.82 Long term (current) use of aspirin; Z96.642 Presence of left artificial hip joint; Z95.0 Presence of cardiac pacemaker; Z90.49 Acquired absence of other specified parts of digestive tract
CPT/HCPCS: 36415; 71045; 76775; 80048; 80053; 80061; 81003; 82043; 82550; 82553; 82570; 82962; 83036; 83690; 83735; 83880; 84100; 84300; 84443; 84484; 85025; 85610; 85730; 93005; 93306; 97110; 97116; 97161; J1120; J1815; J1940

== ENCOUNTER 2019-07-01 03:46 | Emergency (ER) | payer OTHER ==
[~2019-07-01] VITALS: Ht 170.2 cm; Wt 93.0 kg
[~2019-07-01 03:46] MED LIST changes: +FINA5TAB4 PO; +ISOS20TA19 PO; -LISI-313 PO; +LOSA25TA12 PO; +METO10TA6 PO; +SPIR25TA PO; +TAMS-14 PO
[2019-07-01 03:56] VITALS: Ht 170.2 cm; Wt 93.0 kg
--- NOTE | 2019-07-01 04:58 | ERD ---
ER Documentation Chief Complaint Chief Complaint weak, lost balance and fell at home, no loc, hit head, no pain. HPI 74-year-old male presenting after a ground-level fall at home. He states that he has problems with balance and she stood up and fell backwards onto the ground hitting the back of his head and his left shoulder. He is complaining of moderate left shoulder pain, worse with movement, with no associated numbness or tingling. He denies losing consciousness. No vision disturbance, muscle weakness or numbness, nausea or vomiting. Denies any headache at this time. He is on Eliquis. ROS All systems reviewed and are negative except as per history of present illness. Medications Home Meds Active Scripts Spironolactone* (Aldactone*) 25 Mg Tablet, 25 MG PO DAILY, #30 TAB Prov:ERIK SANTA 12/21/18 Carvedilol* (Carvedilol*) 6.25 Mg Tablet, 6.25 MG PO BID for 30 Days, #60 TAB Prov:CAROLINE MARIE MD 12/30/17 Bumetanide* (Bumetanide*) 1 Mg Tablet, 2 MG PO BID DIURETICS for 30 Days, #60 TAB Prov:CAROLINE MARIE MD 12/30/17 Reported Medications Isosorbide Dinitrate* (Isosorbide Dinitrate*) 20 Mg Tablet, 20 MG PO TID for 30 Days, #90 07/01/19 Finasteride* (Finasteride*) 5 Mg Tablet, 5 MG PO DAILY for 90 Days, #90 07/01/19 Metolazone* (Metolazone*) 10 Mg Tablet, 10 MG PO QMON and QFRI for 90 Days, #90 07/01/19 Losartan Potassium* (Losartan Potassium*) 25 Mg Tablet, 25 MG PO DAILY for 90 Days, #90 07/01/19 Tamsulosin Hcl* (Flomax*) 0.4 Mg Cap.er.24h, 0.4 MG PO QHS for 90 Days, #90 07/01/19 Sitagliptin* (Januvia*) 50 Mg Tablet, 50 MG PO DAILY, #30 TAB 12/28/17 [place]-3 Acid Ethyl Esters (Lovaza) 1 Gm Capsule, 4 GM PO DAILY, CAP 12/28/17 Cholecalciferol* (Vitamin D3*) 1,000 Unit Tablet, 2000 UNIT PO DAILY, TAB 12/28/17 Atorvastatin* (Atorvastatin*) 80 Mg Tablet, 80 MG PO QHS, #30 TAB 12/28/17 Aspirin* (Aspirin* EC) 81 Mg Tablet.dr, 81 MG PO DAILY, TAB 12/28/17 Apixaban* (Eliquis*) 5 Mg Tablet, 5 MG PO BID, TAB 12/28/17 Allopurinol* (Allopurinol*) 100 Mg Tablet, 200 MG PO DAILY, TAB 12/28/17 Alfuzosin Hcl* (Alfuzosin Hcl*) 10 Mg Tab.er.24h, 10 MG PO DAILY, #30 TAB.SA 12/28/17 Allergies Allergies: Coded Allergies: No Known Allergy (Unverified , 07/01/19) PMhx/Soc History of Surgery: Yes (CABG, L hip sx, pseudoaneurism sx, PACEMAKER) Anesthesia Reaction: No Hx Neurological Disorder: No Hx Respiratory Disorders: No Hx Cardiac Disorders: Yes (HTN, CHF) Hx Psychiatric Problems: No Hx Miscellaneous Medical Probl: Yes (CARDIAC ARREST) Hx Alcohol Use: No Hx Substance Use: No Hx Tobacco Use: No Smoking Status: Never smoker FmHx Family History: No diabetes Physical Exam Vitals Vital Signs Date Temp Pulse Resp B/P (MAP) Pulse Ox O2 O2 Flow FiO2 Time Delivery Rate 07/01/19 97.2 85 17 104/72 100 03:56 (83) Physical Exam Const: No acute distress Head: Atraumatic, no hematomas, no skull depression Eyes: Normal Conjunctiva ENT: Normal External Ears, Nose and Mouth. Neck: Full range of motion. No meningismus. No C-spine tenderness Resp: Clear to auscultation bilaterally Cardio: Regular rate and rhythm, no murmurs Abd: Soft, non tender, non distended. Normal bowel sounds Skin: Bilateral lower extremity mild erythema with scaling of skin, no warmth to palpation Back: No midline or flank tenderness Ext: No deformities seen in extremities. Left shoulder tender to palpation in the anterior aspect with increased pain with range of motion. No cyanosis, chronic bilateral lower extremity 4+ pitting edema, chronic per patient Neur: Awake and alert, oriented x3, normal speech, cranial nerves intact, strength and sensations grossly intact in all 4 extremities Psych: Normal Mood and Affect Results 24 hrs Current Medications Medications Dose Sig/Percy Start Time Status Last (Trade) Ordered Route PRN Stop Time Admin Dose Reason Admin 1,000 mg ONCE STAT 07/01/19 DC Acetaminophen PO 05:03 07/01/19 (Tylenol 05:04 Tab) Procedures/MDM EMERGENT LABS AND DIAGNOSTIC STUDIES: Radiology Results as interpreted by Radiology below were reviewed by Marc Ramirez MD: CT head shows no acute traumatic abnormalities X-ray left shoulder shows evidence of subluxation possible rotator cuff injury. Initial Nursing notes reviewed. Previous Medical Records requested via the Electronic Health Record. EMERGENCY DEPARTMENT COURSE / MEDICAL DECISION MAKING: Patient is presenting after ground-level fall with head injury. CT head was ordered as the patient is on blood thinners. CT head did not show any acute abnormalities. X-rays of the left shoulder showed evidence of possible rotator cuff injury, however the patient states that he has a history of bilateral rotator cuff injuries and this is not new. Orthostatics was done on the patient and he was not symptomatic and his blood pressure remained stable at his baseline with a systolic in the 100s. Patient feels comfortable going home at this time. Return precautions were given. fall prevention discussed. Departure Diagnosis: Primary Impression: Head injury Encounter type: initial encounter Qualified Codes: S09.90XA - Unspecified injury of head, initial encounter Additional Impressions: Fall Encounter type: initial encounter Qualified Codes: W19.XXXA - Unspecified fall, initial encounter Injury of left shoulder Encounter type: initial encounter Qualified Codes: S49.92XA - Unspecified injury of left shoulder and upper arm, initial encounter Condition: Stable JING RAMIREZ MD Jul 01, 2019 04:58
[2019-07-01] MEDS ORDERED: ACETAMINOPHEN 500 MG TAB PO STA (05:03)
[2019-07-01 05:13] VITALS: BP 105/71; PULSE 84; RESP 22
== END 2019-07-01 05:40 | disposition home or self-care (01) ==
LOC: E/R 03:46
DX: S09.90XA Unspecified injury of head, initial encounter (principal); S49.92XA Unspecified injury of left shoulder and upper arm, initial encounter; I10 Essential (primary) hypertension; I50.9 Heart failure, unspecified; W01.198A Fall on same level from slipping, tripping and stumbling with subsequent striking against other object, initial encounter; Y92.099 Unspecified place in other non-institutional residence as the place of occurrence of the external cause; Z95.1 Presence of aortocoronary bypass graft; Z79.82 Long term (current) use of aspirin
CPT/HCPCS: 70450; 73030

== ENCOUNTER 2019-07-26 13:53 | Inpatient (IN) | payer OTHER ==
[~2019-07-26] VITALS: Ht 170.2 cm; Wt 96.7 kg
[~2019-07-26 13:53] MED LIST changes: +AREDS 2 PO; +ATOR20TA38 PO; -BUME1TAB PO; +BUME1TAB3 PO; +CARV12.579 PO; +CHOL200056 PO; +FURO80TA3 PO; +LINA5TAB PO; +OMEG-140 PO; +TRAM50TA PO
[2019-07-26] MEDS ORDERED: SOD CHLORIDE 0.9% 500 ML IV ONE ×2 (15:30→17:30)
[2019-07-26] MEDS ORDERED: LIDOCAINE 1% (MPF) 5 ML VIAL INFIL ONE (16:00)
[2019-07-26] MEDS ORDERED: LIDOCAINE 1% (MDV) 20 ML INJ ONE (16:00)
[2019-07-26] MEDS ORDERED: ALBUMIN HUMAN 25% 50 ML IV ONE (17:00)
[2019-07-26 17:47] VITALS: BP 97/52; PULSE 95; RESP 18
[2019-07-26] MEDS ORDERED: ACETAMINOPHEN 325 MG TAB PO PRN ×3 (18:30→20:30)
[2019-07-26] MEDS ORDERED: NACL 0.9% 3 ML SYG IV SCH ×2 (19:30→20:30)
[2019-07-26] MEDS ORDERED: ONDANSETRON 4 MG INJ IV PRN (19:30)
[2019-07-26] MEDS ORDERED: DOCUSATE SODIUM 100 MG CAP PO PRN (20:30)
[2019-07-26] MEDS ORDERED: BISACODYL (EC) 5 MG TAB PO PRN (20:30)
[2019-07-26 21:04] VITALS: BP 112/58; PULSE 60; RESP 18
[2019-07-26 21:05] VITALS: Ht 170.2 cm; Wt 96.7 kg
[2019-07-26 21:09] VITALS: BP 112/58; PULSE 70; RESP 22
[2019-07-26] MEDS ORDERED: ALBUMIN HUMAN 25% 100 ML IV ONE (22:00)
[2019-07-26] MEDS: morphine 2 MG INJ IV PRN (23:40)
[2019-07-27] VITALS (7 sets, daily range): BP systolic 82–116; BP diastolic 50–68; PULSE 61–92; RESP 18–19
[2019-07-27] MEDS ORDERED: ALBUMIN HUMAN 25% 100 ML IV ONE (06:00)
[2019-07-27] MEDS ORDERED: GLUCOSE GEL 15 GRAM TUBE PO PRN ×2 (09:00)
[2019-07-27] MEDS ORDERED: DEXTROSE 50% 50 ML SYRINGE IV PRN ×2 (09:00)
[2019-07-27] MEDS ORDERED: GLUCAGON 1 MG INJ IM PRN (09:00)
[2019-07-27] MEDS ORDERED: GLUCOSE GEL 15 GRAM TUBE BUCCAL PRN (09:00)
[2019-07-27] MEDS: APIXABAN 5 MG TABLET PO SCH ×2 (09:35→21:00)
[2019-07-27] MEDS: ASPIRIN (EC) 81 MG TAB PO SCH (09:35)
[2019-07-27] MEDS: LIDOCAINE 5% PATCH TD SCH (09:36)
[2019-07-27] MEDS: INSULIN ASPART [NOVOLOG] 3 ML PEN SC SCH ×3 (12:17→22:05)
[2019-07-27] MEDS ORDERED: METOPROLOL 5 MG INJ IV PRN (13:30)
[2019-07-27] MEDS ORDERED: DIGOXIN 500 MCG INJ IV ONE (13:30)
[2019-07-27] MEDS ORDERED: VANCOMYCIN IV PER PHARMACY XX SCH (14:30)
[2019-07-27] MEDS ORDERED: DEXTROSE 5%-0.45% NACL 1,000 ML IV SCH (14:30)
[2019-07-27] MEDS ORDERED: VANCOMYCIN HCL 2 GM in SOD CHLORIDE 0.9% 500 ML IVPB ONE (16:00)
[2019-07-27] MEDS: FUROSEMIDE 40 MG INJ IV SCH (17:44)
[2019-07-27] MEDS: TAMSULOSIN (SR) 0.4 MG CAP PO SCH (21:00)
[2019-07-27] MEDS: BALSAM PERU/CASTOR OIL 60 GM TUBE TOP SCH (21:00)
[2019-07-27] MEDS: ATORVASTATIN 20 MG TAB PO SCH (21:02)
[2019-07-27] MEDS: FISH OIL 1,000 MG CAP PO SCH (21:02)
[2019-07-28] VITALS: BP 102/60; PULSE 90; RESP 18
[2019-07-28] MEDS: ACCU-CHEK XX SCH (02:38)
[2019-07-28 04:36] VITALS: BP 112/59; PULSE 82; RESP 18
[2019-07-28] MEDS: FUROSEMIDE 40 MG INJ IV SCH ×2 (05:44→17:51)
[2019-07-28 07:26] VITALS: BP 119/56; PULSE 89; RESP 19
[2019-07-28] MEDS: INSULIN ASPART [NOVOLOG] 3 ML PEN SC SCH ×4 (07:55→21:25)
[2019-07-28] MEDS: FISH OIL 1,000 MG CAP PO SCH ×2 (08:33→21:07)
[2019-07-28] MEDS: APIXABAN 5 MG TABLET PO SCH ×2 (08:34→21:07)
[2019-07-28] MEDS: ASPIRIN (EC) 81 MG TAB PO SCH (08:34)
[2019-07-28] MEDS: ASCORBIC ACID 500 MG TAB PO SCH (08:34)
[2019-07-28] MEDS: ZINC SULFATE 220 MG CAP PO SCH (08:34)
[2019-07-28] MEDS: MULTIVITAMINS THERAPEUTIC TAB PO SCH (08:34)
[2019-07-28] MEDS: LIDOCAINE 5% PATCH TD SCH (08:34)
[2019-07-28] MEDS ORDERED: METOLAZONE 5 MG TAB PO ONE (09:00)
[2019-07-28 11:23] VITALS: BP 110/51; PULSE 65; RESP 20
[2019-07-28] MEDS: BALSAM PERU/CASTOR OIL 60 GM TUBE TOP SCH ×2 (12:55→21:13)
[2019-07-28 16:00] VITALS: BP_SYST 110; BP_SYST 112; BP_DIAS 59; BP_DIAS 71; PULSE 70; PULSE 84; RESP 19; RESP 20
[2019-07-28 20:00] VITALS: BP 112/72; PULSE 68; RESP 20
[2019-07-28] MEDS: TAMSULOSIN (SR) 0.4 MG CAP PO SCH (21:07)
[2019-07-28] MEDS: ATORVASTATIN 20 MG TAB PO SCH (21:07)
[2019-07-28] MEDS: morphine 2 MG INJ IV PRN (21:12)
[2019-07-29] VITALS (8 sets, daily range): BP systolic 90–108; BP diastolic 42–66; PULSE 62–109; RESP 18–22
[2019-07-29] MEDS: ACCU-CHEK XX SCH (02:16)
[2019-07-29] MEDS: FUROSEMIDE 40 MG INJ IV SCH ×2 (05:15→18:06)
[2019-07-29] MEDS: INSULIN ASPART [NOVOLOG] 3 ML PEN SC SCH ×4 (07:55→21:41)
[2019-07-29] MEDS ORDERED: METOLAZONE 10 MG TAB PO ONE (08:30)
[2019-07-29] MEDS: BALSAM PERU/CASTOR OIL 60 GM TUBE TOP SCH ×2 (08:52→21:33)
[2019-07-29] MEDS: ZINC SULFATE 220 MG CAP PO SCH (08:53)
[2019-07-29] MEDS: ASPIRIN (EC) 81 MG TAB PO SCH (08:53)
[2019-07-29] MEDS: APIXABAN 5 MG TABLET PO SCH ×2 (08:53→21:30)
[2019-07-29] MEDS: ASCORBIC ACID 500 MG TAB PO SCH (08:53)
[2019-07-29] MEDS: FISH OIL 1,000 MG CAP PO SCH ×2 (08:53→21:33)
[2019-07-29] MEDS: MULTIVITAMINS THERAPEUTIC TAB PO SCH (08:53)
[2019-07-29] MEDS ORDERED: VANCOMYCIN 1.25 GM/NS 250 ML 250 ML IVPB ONE (12:00)
[2019-07-29] MEDS: LIDOCAINE 5% PATCH TD SCH (12:11)
[2019-07-29] MEDS: ACETAMINOPHEN 325 MG TAB PO SCH ×3 (15:00→21:32)
[2019-07-29] MEDS ORDERED: LIDOCAINE 1% (MPF) 5 ML VIAL ONE (16:55)
[2019-07-29] MEDS: DOXYCYCLINE 100 MG TAB PO SCH (21:33)
[2019-07-29] MEDS: TAMSULOSIN (SR) 0.4 MG CAP PO SCH (21:33)
[2019-07-29] MEDS: ATORVASTATIN 20 MG TAB PO SCH (21:33)
[2019-07-29] MEDS: AMPICILLIN 1 GM/NS (PMX) 50 ML IVPB SCH (22:29)
[2019-07-30] MEDS: ACCU-CHEK XX SCH (02:10)
[2019-07-30] MEDS: ACETAMINOPHEN 325 MG TAB PO SCH ×4 (02:58→20:30)
[2019-07-30 04:15] VITALS: BP 100/54; PULSE 68; RESP 18
[2019-07-30 05:49] VITALS: BP 93/59
[2019-07-30] MEDS ORDERED: MIDODRINE 5 MG TAB PO ONE (06:00)
[2019-07-30] MEDS: FUROSEMIDE 40 MG INJ IV SCH ×2 (06:52→17:09)
[2019-07-30 07:12] VITALS: BP 159/72; PULSE 71; RESP 17
[2019-07-30] MEDS: INSULIN ASPART [NOVOLOG] 3 ML PEN SC SCH ×4 (07:55→22:20)
[2019-07-30] MEDS: DOXYCYCLINE 100 MG TAB PO SCH ×2 (08:10→21:13)
[2019-07-30] MEDS: MULTIVITAMINS THERAPEUTIC TAB PO SCH (08:11)
[2019-07-30] MEDS: APIXABAN 5 MG TABLET PO SCH ×2 (08:11→21:13)
[2019-07-30] MEDS: ZINC SULFATE 220 MG CAP PO SCH (08:11)
[2019-07-30] MEDS: FISH OIL 1,000 MG CAP PO SCH ×2 (08:11→21:14)
[2019-07-30] MEDS: ASCORBIC ACID 500 MG TAB PO SCH (08:11)
[2019-07-30] MEDS: ASPIRIN (EC) 81 MG TAB PO SCH (08:11)
[2019-07-30] MEDS: LIDOCAINE 5% PATCH TD SCH (08:12)
[2019-07-30] MEDS: AMPICILLIN 1 GM/NS (PMX) 50 ML IVPB SCH ×2 (08:13→21:13)
[2019-07-30] MEDS: BALSAM PERU/CASTOR OIL 60 GM TUBE TOP SCH ×2 (08:13→21:15)
[2019-07-30] MEDS ORDERED: CYANOCOBALAMIN 1000 MCG INJ IM ONE (11:00)
[2019-07-30 11:19] VITALS: BP 84/54; PULSE 79; RESP 17
[2019-07-30 15:52] VITALS: BP 98/52; PULSE 70; RESP 17
[2019-07-30 20:00] VITALS: BP 105/55; PULSE 67; RESP 19
[2019-07-30] MEDS: ATORVASTATIN 20 MG TAB PO SCH (21:14)
[2019-07-30] MEDS: TAMSULOSIN (SR) 0.4 MG CAP PO SCH (21:14)
[2019-07-31] VITALS: BP 99/51; RESP 20
[2019-07-31] MEDS: ACETAMINOPHEN 325 MG TAB PO SCH ×2 (02:30→07:50)
[2019-07-31] MEDS: ACCU-CHEK XX SCH (02:57)
[2019-07-31 04:00] VITALS: BP 94/73; RESP 21
[2019-07-31] MEDS: FUROSEMIDE 40 MG INJ IV SCH ×2 (06:22→17:21)
[2019-07-31 07:39] VITALS: BP 116/77; PULSE 75; RESP 18
[2019-07-31] MEDS: LIDOCAINE 5% PATCH TD SCH (07:49)
[2019-07-31] MEDS: INSULIN ASPART [NOVOLOG] 3 ML PEN SC SCH ×4 (07:49→20:16)
[2019-07-31] MEDS: FISH OIL 1,000 MG CAP PO SCH ×3 (07:50→20:05)
[2019-07-31] MEDS: MULTIVITAMINS THERAPEUTIC TAB PO SCH (07:50)
[2019-07-31] MEDS: APIXABAN 5 MG TABLET PO SCH ×2 (07:50→20:06)
[2019-07-31] MEDS: AMPICILLIN 1 GM/NS (PMX) 50 ML IVPB SCH ×2 (07:51→20:05)
[2019-07-31] MEDS: BALSAM PERU/CASTOR OIL 60 GM TUBE TOP SCH ×2 (07:51→20:08)
[2019-07-31] MEDS: DOXYCYCLINE 100 MG TAB PO SCH ×2 (07:51→20:05)
[2019-07-31] MEDS: ASCORBIC ACID 500 MG TAB PO SCH (07:51)
[2019-07-31] MEDS: ASPIRIN (EC) 81 MG TAB PO SCH (07:51)
[2019-07-31] MEDS: ZINC SULFATE 220 MG CAP PO SCH (07:51)
[2019-07-31] MEDS: CYANOCOBALAMIN 500 MCG TAB PO SCH (08:01)
[2019-07-31 11:43] VITALS: BP 100/55; PULSE 67; RESP 19
[2019-07-31 15:31] VITALS: BP 99/52; PULSE 70; RESP 20
[2019-07-31 20:00] VITALS: BP 112/56; PULSE 77; RESP 19
[2019-07-31] MEDS: TAMSULOSIN (SR) 0.4 MG CAP PO SCH (20:05)
[2019-07-31] MEDS: ATORVASTATIN 20 MG TAB PO SCH (20:06)
[2019-08-01] VITALS (7 sets, daily range): BP systolic 95–112; BP diastolic 51–69; PULSE 66–76; RESP 17–21
[2019-08-01] MEDS: ACCU-CHEK XX SCH (02:00)
[2019-08-01] MEDS: FUROSEMIDE 40 MG INJ IV SCH ×2 (05:23→17:30)
[2019-08-01] MEDS: INSULIN ASPART [NOVOLOG] 3 ML PEN SC SCH ×4 (07:41→21:14)
[2019-08-01] MEDS: CYANOCOBALAMIN 500 MCG TAB PO SCH (09:31)
[2019-08-01] MEDS: DOXYCYCLINE 100 MG TAB PO SCH ×2 (09:31→20:55)
[2019-08-01] MEDS: ZINC SULFATE 220 MG CAP PO SCH (09:31)
[2019-08-01] MEDS: ASCORBIC ACID 500 MG TAB PO SCH (09:31)
[2019-08-01] MEDS: FISH OIL 1,000 MG CAP PO SCH ×2 (09:31→20:54)
[2019-08-01] MEDS: MULTIVITAMINS THERAPEUTIC TAB PO SCH (09:31)
[2019-08-01] MEDS: APIXABAN 5 MG TABLET PO SCH ×2 (09:31→20:55)
[2019-08-01] MEDS: ASPIRIN (EC) 81 MG TAB PO SCH (09:32)
[2019-08-01] MEDS: BALSAM PERU/CASTOR OIL 60 GM TUBE TOP SCH ×2 (09:45→22:24)
[2019-08-01] MEDS: AMPICILLIN 1 GM/NS (PMX) 50 ML IVPB SCH ×2 (09:46→20:54)
[2019-08-01] MEDS: LIDOCAINE 5% PATCH TD SCH (12:11)
[2019-08-01] MEDS: TAMSULOSIN (SR) 0.4 MG CAP PO SCH (20:54)
[2019-08-01] MEDS: ATORVASTATIN 20 MG TAB PO SCH (20:55)
[2019-08-02] MEDS: ACCU-CHEK XX SCH (02:00)
[2019-08-02 04:16] VITALS: BP 105/55; PULSE 70; RESP 19
[2019-08-02] MEDS: FUROSEMIDE 40 MG INJ IV SCH ×2 (05:21→18:05)
[2019-08-02 07:16] VITALS: BP 127/56; PULSE 62; RESP 17
[2019-08-02] MEDS: INSULIN ASPART [NOVOLOG] 3 ML PEN SC SCH ×4 (07:55→21:11)
[2019-08-02] MEDS: AMPICILLIN 1 GM/NS (PMX) 50 ML IVPB SCH ×2 (08:13→20:57)
[2019-08-02] MEDS: DOXYCYCLINE 100 MG TAB PO SCH ×2 (08:14→20:57)
[2019-08-02] MEDS: APIXABAN 5 MG TABLET PO SCH ×2 (08:14→20:58)
[2019-08-02] MEDS: FISH OIL 1,000 MG CAP PO SCH ×2 (08:16→20:57)
[2019-08-02] MEDS: CYANOCOBALAMIN 500 MCG TAB PO SCH (08:17)
[2019-08-02] MEDS: ASPIRIN (EC) 81 MG TAB PO SCH (08:17)
[2019-08-02] MEDS: MULTIVITAMINS THERAPEUTIC TAB PO SCH (08:17)
[2019-08-02] MEDS: ASCORBIC ACID 500 MG TAB PO SCH (08:17)
[2019-08-02] MEDS: ZINC SULFATE 220 MG CAP PO SCH (08:17)
[2019-08-02] MEDS: BALSAM PERU/CASTOR OIL 60 GM TUBE TOP SCH ×2 (08:18→21:19)
[2019-08-02] MEDS: LIDOCAINE 5% PATCH TD SCH (08:29)
[2019-08-02 11:22] VITALS: BP 139/68; PULSE 69; RESP 18
[2019-08-02 16:22] VITALS: BP 111/60; PULSE 69; RESP 18
[2019-08-02 19:39] VITALS: BP 100/56; PULSE 68; RESP 19
[2019-08-02] MEDS: TAMSULOSIN (SR) 0.4 MG CAP PO SCH (20:57)
[2019-08-02] MEDS: ATORVASTATIN 20 MG TAB PO SCH (20:57)
[2019-08-02 23:14] VITALS: BP 106/60; PULSE 61; RESP 19
[2019-08-03] MEDS: ACCU-CHEK XX SCH (02:00)
[2019-08-03 03:51] VITALS: BP 98/54; PULSE 94; RESP 18
[2019-08-03] MEDS: FUROSEMIDE 40 MG INJ IV SCH (05:42)
[2019-08-03] MEDS: INSULIN ASPART [NOVOLOG] 3 ML PEN SC SCH ×3 (07:47→17:35)
[2019-08-03 08:45] VITALS: BP 111/59; PULSE 69; RESP 17
[2019-08-03] MEDS: LIDOCAINE 5% PATCH TD SCH (09:00)
[2019-08-03] MEDS: AMPICILLIN 1 GM/NS (PMX) 50 ML IVPB SCH (09:39)
[2019-08-03] MEDS: FISH OIL 1,000 MG CAP PO SCH (09:39)
[2019-08-03] MEDS: CYANOCOBALAMIN 500 MCG TAB PO SCH (09:40)
[2019-08-03] MEDS: ASCORBIC ACID 500 MG TAB PO SCH (09:40)
[2019-08-03] MEDS: ASPIRIN (EC) 81 MG TAB PO SCH (09:40)
[2019-08-03] MEDS: ZINC SULFATE 220 MG CAP PO SCH (09:40)
[2019-08-03] MEDS: DOXYCYCLINE 100 MG TAB PO SCH (09:40)
[2019-08-03] MEDS: APIXABAN 5 MG TABLET PO SCH (09:40)
[2019-08-03] MEDS: MULTIVITAMINS THERAPEUTIC TAB PO SCH (09:40)
[2019-08-03] MEDS: BALSAM PERU/CASTOR OIL 60 GM TUBE TOP SCH (09:51)
[2019-08-03] MEDS ORDERED: MAGNESIUM SULFATE 2 GM/50 ML 50 ML IVPB ONE (11:00)
[2019-08-03 11:32] VITALS: BP 97/50; PULSE 69; RESP 17
[2019-08-03 15:13] VITALS: BP 111/57; PULSE 72; RESP 17
[2019-08-03] MEDS ORDERED: BUMETANIDE 1 MG TAB PO SCH (18:00)
== END 2019-08-03 18:45 | DRG 682 ==
LOC: E/R 13:53 → TEL 18:19
PROVIDERS: ADMIT Internal Medicine; ATTEND Family Medicine
PROC: 02HV33Z Insertion of Infusion Device into Superior Vena Cava, Percutaneous Approach (ICD-10-PCS; 2019-07-26)
PROC: 30233N1 Transfusion of Nonautologous Red Blood Cells into Peripheral Vein, Percutaneous Approach (ICD-10-PCS; 2019-07-27)
PROC: 0W9G3ZZ Drainage of Peritoneal Cavity, Percutaneous Approach (ICD-10-PCS; principal; 2019-07-29)
DX: N17.9 Acute kidney failure, unspecified (principal); I50.23 Acute on chronic systolic (congestive) heart failure; I21.A1 Myocardial infarction type 2; I13.0 Hypertensive heart and chronic kidney disease with heart failure and stage 1 through stage 4 chronic kidney disease, or unspecified chronic kidney disease; N39.0 Urinary tract infection, site not specified; R18.8 Other ascites; R78.81 Bacteremia; L97.819 Non-pressure chronic ulcer of other part of right lower leg with unspecified severity; I42.9 Cardiomyopathy, unspecified; N18.4 Chronic kidney disease, stage 4 (severe); E11.22 Type 2 diabetes mellitus with diabetic chronic kidney disease; Z95.0 Presence of cardiac pacemaker; I95.9 Hypotension, unspecified; Z95.1 Presence of aortocoronary bypass graft; I48.91 Unspecified atrial fibrillation; E78.5 Hyperlipidemia, unspecified; D63.8 Anemia in other chronic diseases classified elsewhere; I87.8 Other specified disorders of veins; B95.2 Enterococcus as the cause of diseases classified elsewhere; L89.150 Pressure ulcer of sacral region, unstageable; I83.018 Varicose veins of right lower extremity with ulcer other part of lower leg
CPT/HCPCS: 36415; 36430; 36573; 70450; 71045; 76705; 76775; 80048; 80053; 80061; 80202; 81003; 82043; 82306; 82550; 82553; 82607; 82652; 82728; 82746; 82962; 83036; 83540; 83605; 83735; 83880; 84100; 84155; 84300; 84425; 84443; 84484; 85025; 85610; 85730; 86850; 86900; 86901; 86920; 87086; 93005; 93306; 93970; 96360; 97110; 97162; 97530; J0290; J1815; J1940; J2270; J3370; J3420; J3475; J7040; J7042; P9016; P9047